=== PATIENT | female | born 1995 | race Caucasian/White ===

== ENCOUNTER 2020-08-09 15:14 | Outpatient (REF) | payer OTHER, SELFPAY ==
[2020-08-09 15:52] LABS: MANUAL DIFF FLAG NO
[2020-08-09 15:55] LABS: Basophils Percent Auto 0.3 % (0-2); Eosinophils Percent Auto 0.3 % (0-4); Hematocrit 36.6 % (37-47); Hemoglobin 10.8 g/dl (12.0-16.0); Imm Gran Abs Auto 0.01 X10*3/uL (0.00-0.03); Imm Gran Pct Auto 0.2 % (0.0-0.4); Lymphocytes Absolute Auto 1.8 X10*3/uL (1.2-4.9); Lymphocytes Percent Auto 30.4 % (20-40); Mean Corpuscular HGB Conc 29.5 g/dl (31.0-35.0); Mean Corpuscular Hemoglobin 23.5 pg (27.0-33.0); Mean Corpuscular Volume 79.6 fL (80-98); Mean Platelet Volume 10.5 fL (9.4-12.3); Monocytes Absolute Auto 0.4 X10*3/uL (0.1-1.2); Neutrophils Absolute Auto 3.7 X10*3/uL (2.0-8.3); Neutrophils Percent Auto 62.8 % (45-73); Platelet Count 327 X10*3/uL (160-400); Red Cell Distribution Width 15.5 % (11.0-16.0); White Blood Count 5.8 X10*3/uL (4.8-10.8)
[2020-08-09 16:26] LABS: Alanine Aminotransferase 17 U/L (0-31); Alkaline Phosphatase 51 U/L (39-117); Anion Gap 13 (12-20); Aspartate Amino Transferase 31 U/L (5-31); Bilirubin Total 0.4 mg/dL (0.0-1.0); Blood Urea Nitrogen 7 mg/dL (9-16); Calcium 9.8 mg/dL (8.4-10.2); Carbon Dioxide 28 mmol/L (22-29); Chloride 101 mmol/L (96-108); Estimated Glomerular Filt Rate > 60; Glucose Random 91 mg/dL (60-115); Sodium 138 mmol/L (135-145); Total Protein 8.2 g/dL (6.5-8.0)
[2020-08-09 16:42] LABS: TSH reflex Free T4 1.34 mIU/mL (0.32-4.0)
[2020-08-10 10:43] LABS: Complement C3 108 mg/dL (83-193)
== END 2020-08-09 15:15 | disposition home or self-care (01) ==
LOC: HO.LAB 15:14
PROVIDERS: PCP Internal Medicine; Referring Provider Allergy & Immunology; Visit Provider Nurse Practitioner Family
DX: T78.3XXA Angioneurotic edema, initial encounter (principal); N93.9 Abnormal uterine and vaginal bleeding, unspecified
CPT/HCPCS: 36415; 80053; 82785; 83520; 84443; 85025; 86003; 86160

== ENCOUNTER → 2020-10-04 08:16 | Outpatient (BNVA) | payer OTHER, SELFPAY | PROVIDERS: PCP Internal Medicine; Visit Provider Physician Assistant | DX: Z13.89 Encounter for screening for other disorder (principal) | CPT/HCPCS: Q3014 ==

== ENCOUNTER → 2021-01-23 13:44 | Outpatient (BNVA) | payer OTHER, SELFPAY | PROVIDERS: PCP Internal Medicine; Visit Provider Internal Medicine Gastroenterology | DX: Q79.60 Ehlers-Danlos syndrome, unspecified (principal); G62.9 Polyneuropathy, unspecified; K90.0 Celiac disease; K22.4 Dyskinesia of esophagus; R13.10 Dysphagia, unspecified | CPT/HCPCS: 99212 ==

== ENCOUNTER 2021-03-26 08:56 | Outpatient (RCR) | payer MEDICARE, MEDICAID, SELFPAY ==
--- NOTE | 2021-03-30 14:35 | MHC.SP.ADU ---
Referring provider: Dr. Arminda Hector MD Reason for Referral: Vocal cord dysfunction Type of Treatment: 68681 Behavioral and Qualitative Analysis of Voice and Resonance Date of Plan of Treatment: 03/30/21 Onset of Symptoms/Illness: 09/08/14 Date Treatment Started: 03/30/21 Medical Diagnosis: Pain in right hip Pain in left hip Low back pain Depression with Anxiety Primary Dysmenorrhea Mild intermittent asthma Bilateral shoulder pain Gastroparesis Grecia-Danlos Syndrome Neck pain Headache Dysphagia Knee dislocation allergic rhinitis TMJ arthralgia Raynauds Disease Neurogenic pain Elbow Pain Palpitations Other chronic pain Vocal cord anomaly Small fiber neuropathy Systemic involvement of connective tissue Autonomic dysfunction POTS syndrome Abnormal uterine bleeding Primary Speech Language Diagnosis: R49.9 Unspecified voice Secondary Speech Language Diagnosis: History Pamela Jimenez is a 25 year old female who was referred for a voice evaluation by her PCP, Dr. Hector for vocal cord dysfunction. Pamela was diagnosed with a connective tissue disorder, Grecia-Danlos Syndrome at . Ms. Jimenez reported that she has been seen by an ENT in the past, though does not recall how long ago this was. She reported the ENT stated her vocal cords are thinning and there is a gap between them . Kacey received speech therapy in the past, approximately 6 years ago at [facility]. In speech therapy she practiced vocal exercises including breath support and pitch glides. Pamela reported that her voice sounds gravely at times. She has difficulty raising her voice or speaking in a whisper. She reported that her voice gets worse as the day goes on. Pamela also mentioned concerns with word finding and memory. Medical History: Asthma Voice Changes Other: Please see above Medication List: Please see pt chart Recent Hospitalizations: No Respiratory Needs: Room Air Patient Orientation: Alert & Oriented x 4 Social History: Employment Status: Highest level of education obtained: Current Living Situation: Shared apartment Assistive Devices in use: Cane Glasses/Contacts Comment: Pamela ambulated with the help of a cane. Past Speech Language Therapy: Pamela's last reported speech therapy session was approximately 6 years ago at [facility]. Other Therapies Seen in Current Calendar Year: Physical Therapy Other: Swallowing History: Dysphagia Specific: Within Functional Limits Comments: Pt reported occasional pain when swallowing and globus sensation. Pre-eval Risk for Aspiration: Pre-evaluation Dietary Consistencies: Regular Pre-eval Liquid Intake: Thin Pre-eval Medication Intake: Whole with Liquid Reported Speech, Language, Cognition difficulties: Memory Voice Comments: Quality of Life: Patient Stated Goal of Speech-Language Therapy: Assessment Speech Production: Clinical Impression: Observations: Informal Voice Assessment: Voice Loudness: Mildly Soft/Quiet Voice Nasal Resonance: Normal Voice Oral Resonance: Normal Voice Phonatory-based Quality: Breathy Tremor Voice Pitch: Limited Variation Voice Other Observations: Clinical Impression: Clinicial Observations: Tests of Speech & Lang Adults: [place] Naming Test: Short Form Clinical Impression: Impaired Observations: Pamela was administered the BNT short form, as she presented with concerns related to word finding skills. The BNT is an assessment used to evaluate a person's confrontation naming skills. Pamela was shown 15 black and white line drawings. She correctly named 10/15 items. Further testing is warranted in this area. Tests of Cognition: Regis Cognitive Assessment (MoCA) Clinical Impression: Impaired Observations: Pamela was administered the Regis Cognitive Assessment due to concerns related to memory and executive functions. The MoCA is a tool used to identify mild cognitive impairment. The following cognitive domains are assessed: visuospatial skills, executive functioning, memory, attention, language, orientation, conceptual thinking, calculations, and concentration. The total possible score is 30 points. A score of 26/30 is considered normal. Pamela achieved a score of 17/30 indicating a cognitive impairment. Visuospatial: 2/5 -Pamela was unable to draw a clock with the number and time set correctly. Namin/3 Memory: 1/5 -Pamela had difficulty with recalling 5 words when given a time delay. She was observed to stare blankly and guess. Language: 0/2 -Pamela was unable to repeat sentences back to this INFORMATION SERVICES MANAGER. Abstraction: 2/2 Orientation: 5/6 -Pamela did not recall the date. Attention: 3/5 -Pamela struggled with serial subtraction and repeating numbers back to this clinician. Based on Pamela's performance on the MoCA, additional cognitive testing is warranted to further assess her cognitive functioning. Impressions and Recommendations Summary: Impact on Daily Function/Activity Limitations: Daily Activities: Moderate Interpersonal Interactions: Moderate Education: Moderate Employment: None Community: Moderate Prognosis for Improvement: Fair Comment: Recommendation for Speech Therapy: It is recommended that Pamela participate in speech therapy 1x/week for 8 weeks to improve vocal quality. Frequency/Duration: Date Range for Service Requested: Time to Reassess: Optometrist Owner Goals: Patient will improve vocal quality and voice related quality of life. Short Term Goals: Goal # : Patient will develop a vocal hygiene program (i.e. diet changes, identifying and minimizing vocally abusive behaviors (i.e. speaking on residual air) vocal rest, hydration, etc.) with the clinician and discuss maintenance of vocal hygiene program across 5 sessions with 100% participation. Goal Status: New Goal Goal# : Patient will complete diaphragmatic breathing exercises to improve breath support for phonation with 90% accuracy and min cues. Goal Status: New Goal Goal # : Patient will complete vocal function exercises (pitch glides, sustained /a/) with 90% accuracy and min cues. Goal Status: New Goal Goal # : Patient will complete a more Cognitive Linguistic Quick Test (CLQT) with 100% completion to further assess domains of cognitive functioning. Recommended Referrals to be Discussed with Primary Care Provider: ENT Consult Patient Education: Completed: Yes Patient/Caregiver Education: Described Results of Evaluation Patient expressed understanding of evaluation Patient agrees with goals and treatment plan Comments/Barriers to Learning: Strategic Sourcing Consultant Clinican/Clinical Fellow: No Supervisory Statement: N/A Speech Language Pathologist: Silva Hansen M.A. [facility]-INFORMATION SERVICES MANAGER
== END 2022-01-07 16:03 | disposition home or self-care (01) ==
LOC: HO.SH 08:56
PROVIDERS: Visit Provider Internal Medicine
DX: R49.9 Unspecified voice and resonance disorder (principal)
CPT/HCPCS: 92524

== ENCOUNTER 2021-08-30 14:00 | Outpatient (REF) | payer MEDICARE, MEDICAID, SELFPAY ==
[2021-08-30 14:58] LABS: Influenza A PCR NEGATIVE (Negative); Influenza B PCR NEGATIVE (Negative); Resp Syncy Virus RNA Qual PCR NEGATIVE (Negative); SARS COV2 PCR INHOUSE NEGATIVE (Negative)
== END 2021-08-30 14:01 | disposition home or self-care (01) ==
LOC: HO.LNP 14:00
PROVIDERS: Visit Provider Physician Assistant Medical
DX: Z20.822 Contact with and (suspected) exposure to COVID-19 (principal); J06.9 Acute upper respiratory infection, unspecified
CPT/HCPCS: 0241U

== ENCOUNTER 2025-03-31 15:05 | Inpatient (IN) | payer MEDICARE, MEDICAID, SELFPAY ==
--- NOTE | ~2025-03-31 | MR_ITS ---
EXAMINATION: MR BRAIN WITH CONTRAST CLINICAL INFORMATION: Positional migraine COMPARISON: April 01, 2025 TECHNIQUE: Axial and coronal T1 postcontrast sequences. Total amount of contrast given IV: 5 cc gadolinium based (Gadavist) without reported immediate complications. FINDINGS: No abnormal enhancement within the intra-axial or the extra-axial compartment of the cranium. MR/MR head/brain w con IMPRESSION: No enhancing lesion/mass. Spontaneous Intracranial hypotension cannot be excluded. Electronically signed by: Sean Neves MD 04/06/2025 03:13 PM EDT
--- NOTE | ~2025-03-31 | CT_ITS ---
CLINICAL HISTORY: Intractable Headache CT BRAIN WITHOUT CONTRAST COMPARISON: None provided. FINDINGS: There is no evidence of an acute infarct or intraparenchymal hemorrhage. Apparent mild decreased attenuation is noted within the white matter of the bilateral occipital lobes, for example this is seen on axial images 11-14 of series 3. While nonspecific, the imaging appearance raises the question of posterior reversible encephalopathy syndrome (PRES) in this patient with a history of headaches. No evidence of an intraparenchymal hemorrhage. No hydrocephalus. No extra-axial blood. No acute fracture. IMPRESSION: 1. No evidence of an acute infarct or intraparenchymal hemorrhage. 2. Apparent mild decreased attenuation within the white matter of the bilateral occipital lobes. Imaging appearance is nonspecific but raises the question of posterior reversible encephalopathy syndrome (PRES). A follow-up MRI brain without and with contrast is advised for a more accurate assessment. This document has been electronically signed by: Michael Mao M.D. on 04/01/2025 05:00:16
--- NOTE | ~2025-03-31 | MR_ITS ---
CLINICAL HISTORY: complex mifgrain MR Brain without gadolinium Comparison: CT/SR - CT HEAD/BRAIN WO IV CON - 04/01/25 03:50 EDT Findings: No restricted diffusion. No intra-axial mass or hemorrhage. No midline shift. No hydrocephalus. Vascular flow voids are intact. The orbits are normal. The sinuses and mastoid air cells are clear. No focal bone lesion. IMPRESSION: Normal brain MRI. This document has been electronically signed by: Deidra Nj MD on 04/01/2025 19:08:47
[2025-03-31 15:14] VITALS: BP 129/81; PULSE 99; RESP 18; TEMP 36.9; O2SAT 100; BMI 19.9
--- NOTE | 2025-03-31 15:23 | ED_ITS ---
HPI - Headache General Chief Complaint: Headache Stated Complaint: headache for week dizzy Time Seen by Provider: 03/31/25 19:25 Source: patient Mode of arrival: ambulatory Limitations: no limitations History of Present Illness ED Provider: Nahum LEES HPI Narrative: The patient is a 29-year-old female with history of OCD, PTSD, bipolar disorder, migraines, neuralgia, celiac disease, Grecia-Danlos syndrome, dysautonomia, mast cell activation, chronic pain, by dysmorphic disorder, and GERD presenting to the ED for evaluation of a severe headache over the past 5 days. The patient reports she takes morphine daily for chronic pain, has been taking this without relief. The patient reports allergies to codeine, Flexeril, ibuprofen, Reglan, and scopolamine. The patient reports she follows with a autonomic neurologist in [place] as she has been experiencing migraines that occasionally present with right-sided facial droop. Patient reports she has been experiencing 5 days of generalized headache originating in the bilateral occipital region and radiating into the frontal region, with associated nausea and photosensitivity, patient reports this is similar to her previous migraines however patient reports she is experiencing severe irritation/pain on her skin at the base of her neck, which is considerably different from her regular migraines, patient denies any facial droop and states not feel similar to her episodes for which she is being followed by the autonomic neurologist in [place]. The patient denies associated objective fever, shortness of breath, chest pain different from her baseline chronic pain, recent sick contacts, or recent trauma. The patient reports she was seen by her physical therapist 2 days ago who did massage and dry needling of her neck without any improvement. The patient reports symptoms increased with standing, improved with lying down. The patient denies any recent spinal tap or other instrumentation. Patient reports she had called her autonomic neurologist in [place] who previously advised her if she was not experiencing symptoms consistent with the drooping face, she could be seen in any local ER for her symptoms, patient reports she did not receive a call back and presented to the ED for evaluation. Related Data Home Medications ?Medication ?Instructions ?Recorded ?Confirmed epinephrine 0.3 mg/0.3 mL 0.3 mg IM Q10M PRN Allergic 10/04/20 04/01/25 injection, auto-injector Reaction norgestimate 0.25 mg-ethinyl 1 tab PO DAILY 10/04/20 0 04/01/25 estradiol 0.035 mg tablet (Sprintec (28)) cromolyn 100 mg/5 mL oral 200 mg PO QIDWMHS 01/23/21 0 04/01/25 concentrate multivitamin 1 tab PO DAILY 01/23/21 07/01/30 Lactobacillus acidophilus 10 10,000 mmu cells PO DAILY 04/01/25 04/01/25 billion cell capsule (Probiotic) albuterol sulfate 90 mcg/actuation 2 puff inhalation Q 4H PRN dyspnea 04/01/25 04/01/25 aerosol inhaler buprenorphine HCl 900 mcg buccal 900 mcg buccal Q12H c hronic pain 04/01/25 04/01/25 film (Belbuca) methenamine hippurate 1 gram tablet 1 g PO DAILY 04/0104/01/25 metoprolol succinate 25 mg 25 mg PO DAILY 04/01/25 tablet,extended release 24 hr omeprazole 40 mg capsule,delayed 40 mg PO DAILY@0630 0 04/01/25 04/01/25 release pyridostigmine bromide 60 mg tablet 30 mg PO BEDTIME 0 04/01/25 04/01/25 pyridostigmine bromide 60 mg tablet 60 mg PO DAILY 04/01/25 Allergies Allergy/AdvReac Type Severity Reaction Status Date / Time codeine (CODEINE) Allergy Unknown UNKNOWN Verified 03/31/25 15:18 cyclobenzaprine (From Allergy Unknown UNKNOWN Verified 03/31/25 15:18 FLEXERIL) ibuprofen (From MOTRIN) Allergy Unknown UNKNOWN Verified 03/31/25 15:18 metoclopramide (From REGLAN) Allergy Unknown AGITATION Verified 03/31/25 15:18 scopolamine (SCOPOLAMINE) Allergy Unknown ANAPHYLAXIS Verified 03/31/25 15:18 GLUTENS Allergy Unknown GI DISTRESS Uncoded 10/04/20 09:05 Review of Systems 2 Review of Systems: Yes all other systems are reviewed and are negative [facility] Past Medical History Medical History Ureter injury Wrist disorder Body dysmorphic disorder Dysmenorrhea OCD (obsessive compulsive disorder) PTSD (post-traumatic stress disorder) Bipolar 1 disorder Migraine Hip deformity Tachycardia Chronic pain Vocal cord anomaly Lordosis Mast cell activation Small fiber neuropathy Dysautonomia Grecia-Danlos syndrome Celiac disease Surgical History H/O colonoscopy History of esophagogastroduodenoscopy (EGD) History of kidney surgery H/O wrist surgery Stryker teeth extracted History of appendectomy Family History Family History Mother No problems noted. Father No problems noted. Social History Social History Household Members: Friend(s) Household Members Other:: BF and 3 room mates Alcohol intake: never Smoked in Last 30 Days: No Use of substances other than those prescribed or required for medical reasons: No Advance Directives: No Advance Directives Information Provided: No Do you have a plan to hurt others: No Plan Patient : No service: No Current occupational status: disabled Physical Exam 2 Vital Signs: Vital Signs: Last Vital Signs Temp 98.5 F 04/01/25 16:07 Pulse 78 04/01/25 16:07 Resp 16 04/01/25 16:07 BP 110/67 04/01/25 16:07 Pulse Ox 97 04/01/25 16:07 O2 Del Method Room Air 04/01/25 16:07 BMI result Body Mass Index 19.9 CONSTITUTIONAL: The patient appears in obvious discomfort, is wearing sunglasses in the dark secondary to photosensitivity, but is otherwise well nourished and in no acute distress. Vital signs as documented. HEAD: Atraumatic, normocephalic. EYES: Exam deferred due to severe photosensitivity. ENT: Nares patent, no discharge. Airway patent, no audible stridor, visible mucosa is pink and moist without noted lesions. NECK: Trachea is midline, no obvious masses or gross abnormalities. There is no bony tenderness, however patient reports tenderness to both light and deep palpation of the base of her neck bilaterally. Full, nonpainful range of motion. CHEST: Symmetric movement, normal appearance. LUNGS: LS present and CTAB, no w/r/r. Non-labored work of breathing. CARDIAC: Regular Rhythm, S1/S2 appreciated, no murmurs, rubs or gallops. ABDOMEN: Abdomen soft and non-tender x4 quadrants, no palpable masses or organomegaly. : Deferred. EXTREMITIES: Normal tone, moves all extremities spontaneously without reported pain. No obvious acute injury or deformity noted. NEURO: Alert and oriented x3, CN II-XII appear grossly intact. Cerebellar Functioning grossly intact. No obvious sensory or motor deficits. Speech clear and appropriate. PSYCH: normal affect, appropriate eye contact, fluid speech, with appropriate response to questioning. No reported suicidality or homicidality. SKIN: Warm, dry, color appropriate, normal turgor. No rashes noted. Course Course Course Narrative: This is an RME: Additional HPI, ROS, PE not included below will be deferred to primary provider. RME assessment and note performed by: Socorro Wiley PA-C This is a 23-[id number]-female who presents to the ER with complaints of headache x 5 days. Reporting increased nausea and blurry vision. Hx of occipital nauralgia and migraines. Plan: Labs, EKG, further ER eval needed Medications Administered Generic Name Dose Route Start Last Admin Trade Name Freq PRN Reason Stop Dose Admin Hydromorphone HCl 1 mg 04/01/25 06:25 04/01/25 17:29 Hydromorphone Hcl 1 Mg/Ml Syringe IVPUSH 1 mg Q4H PRN Administration Pain, Severe (Pain Scale 7-10) Protocol Omeprazole 20 mg 04/01/25 09:00 04/01/25 09:41 Omeprazole 20 Mg Capsule.Dr PO 20 mg DAILY@0630 LUIS Administration Sodium Chloride 3 ml 04/01/25 08:00 04/01/25 17:34 0.9 % Sodium Chloride Flush 3 Ml Syringe IVFLUSH Not Given QSHIFT [facility] Discontinued Medications Generic Name Dose Route Start Last Admin Trade Name Freq PRN Reason Stop Dose Admin Diazepam 5 mg 03/31/25 20:03 03/31/25 20:35 Diazepam 10 Mg/2 Ml Cartridge IVPUSH 03/31/25 20:04 5 mg STAT STA Administration Diphenhydramine HCl 25 mg 04/01/25 05:16 04/01/25 05:26 Diphenhydramine Hcl 50 Mg/Ml Vial IVPUSH 04/01/25 05:17 25 mg ONCE ONE Administration Haloperidol Lactate 5 mg 04/01/25 03:42 04/01/25 04:57 Haloperidol Lactate 5 Mg/Ml Vial IVPUSH 04/01/25 03:43 5 mg ONCE ONE Administration Hydromorphone HCl 0.5 mg 03/31/25 20:03 03/31/25 20:35 Hydromorphone Hcl 0.5 Mg/0.5 Ml Syringe IVPUSH 03/31/25 20:04 0.5 mg ONCE ONE Administration Protocol Hydromorphone HCl 1 mg 04/01/25 00:51 04/01/25 01:13 Hydromorphone Hcl 1 Mg/Ml Syringe IVPUSH 04/01/25 00:52 1 mg ONCE ONE Administration Protocol Sodium Chloride 1,000 mls @ 999 mls/hr 03/31/25 20:15 03/31/25 21:48 Ns IV 03/31/25 21:15 Infused .Q1H1M LUIS Infusion Acetaminophen 1,000 mg in 100 mls @ 400 mls/hr 03/31/25 20:03 03/31/25 21:25 Ofirmev IV 03/31/25 20:17 Infused ONCE ONE Infusion Ondansetron HCl 4 mg 03/31/25 20:03 03/31/25 20:28 Ondansetron Hcl 4 Mg/2 Ml Vial IVPUSH 03/31/25 20:04 4 mg ONCE ONE Administration Ondansetron HCl 4 mg 04/01/25 01:08 04/01/25 01:13 Ondansetron Hcl 4 Mg/2 Ml Vial IVPUSH 04/01/25 01:09 4 mg ONCE ONE Administration Sumatriptan Succinate 50 mg 04/01/25 00:09 04/01/25 00:36 Sumatriptan Succinate 50 Mg Tablet PO 04/01/25 00:10 50 mg ONCE ONE Administration Medical Decision Making Medical Decision Making MDM Narrative: 8:28 PM 03/31/2025 (Saniya LEES): The patient is a 29-year-old female presenting to the ED for evaluation of 5 days of headache which is inconsistent with her regular migraines or with her complicated migraines for which she is followed by an autonomic neurologist in [place]. The patient expresses associated photosensitivity, audio toxicity, and generalized malaise/fatigue. The patient's exam is benign. The patient has multiple allergies including Reglan and Toradol. The patient's laboratory evaluation is extremely reassuring, no leukocytosis, anemia, electrolyte abnormality, NICOLE, significant liver abnormality, evidence of UTI, or . The patient's viral swab is negative. EKG is nonischemic. Vital signs stable, no hypotension, tachycardia, hypoxia, or fever. Consideration of CT imaging was discussed with the patient, given the duration of patient's symptoms, reassuring workup and exam, and history of recurrent headaches, we will attempt to treatment of headache prior to considering CT imaging, if no improvement following interventions the patient will be sent for CT of the head head. The patient will be treated with a combination of IV fluid hydration, Dilaudid as her symptoms have not improved with her p.o. morphine, Valium for muscle relaxation, IV Tylenol, and Zofran for nausea. We will also add on ESR and CRP. 12:21 AM 04/01/2025 (Saniya LEES): The patient's ESR and CRP are normal, no evidence of inflammatory process. The patient reports symptoms minimally improved immediately following initial treatment. At this time however the patient reports pain has returned and is ?10/10?. The patient will be treated with sumatriptan and we will reassess for improvement. We will also obtain CT head as previously discussed. 12:54 AM 04/01/2025 (Saniya LEES): The patient is refusing sumatriptan stating p.o. meds we will not work, patient will be treated with an additional mg of Dilaudid. If patient continues to have no relief we will consider haldol. 3:48 AM 04/01/2025 (Saniya LEES): The patient did eventually take sumatriptan but stated it did not relieve her pain and agitated her stomach. The patient reports improvement in the frontal aspect of her headache with Dilaudid, however reports persistent pressure and pain in the posterior/occipital area. The patient will be treated with Haldol. Patient initially was refusing CT however after additional discussion patient will be sent for CT to rule out intracranial pathology. 4:22 AM 04/01/2025 (Saniya LEES): Patient's care signed out to Dr. Saw Dial. 05:24: The patient's headache is now intractable. CT head without acute pathology however cerebellar appearance raises concern for possible pres. No indication for emergent neurology consultation I will add a drug tox panel on patient has received a total of 9 different medications still complaining of severe pain refused occipital nerve block by me says she has had a bad reaction to this in the past. There was no suggestion of BUSINESS ADMINISTRATION PROFESSOR infection acute traumatic injury this is likely acute on chronic migrainous in nature Quentin Wang MD Admission/Observation Consideration of admission/observation: Escalation of care including admission/observation considered Lab Data [facility] Lab Attestation statement: I reviewed the patient's lab results. 03/31/25 15:57 03/31/25 15:57 Labs: Lab Results 03/31/25 03/31/25 Range/Units 15:57 20:33 WBC 6.2 (4.8-10.8) X10*3/uL RBC 4.71 (4.20-5.50) X10*6/uL Hgb 13.9 (12.0-16.0) g/dl Hct 42.9 (37.0-47.0) % MCV 91.1 (80.0-98.0) fL MCH 29.5 (27.0-33.0) pg MCHC 32.4 (31.0-35.0) g/dl RDW 13.2 (11.0-16.0) % Plt Count 218 (160-400) X10*3/uL MPV 10.5 (9.4-12.3) fL Immature Gran % (Auto) 0.3 (0.0-0.4) % Neut % (Auto) 71.9 (45-73) % Lymph % (Auto) 22.1 (20-40) % Becker % (Auto) 5.2 (2-11) % Eos % (Auto) 0.2 (0-4) % Baso % (Auto) 0.3 (0-2) % Lymph # (Auto) 1.4 (1.2-4.9) X10*3/uL Becker # (Auto) 0.3 (0.1-1.2) X10*3/uL Eos # (Auto) 0.0 (0.0-0.4) X10*3/uL Baso # (Auto) 0.0 (0.0-0.2) X10*3/uL Abs Immat Gran (auto) 0.02 (0.00-0.03) X10*3/uL Absolute Neuts (auto) 4.4 (2.0-8.3) x10*3/uL Absolute Nucleated RBC 0.000 (0.0-0.012) X10*3/uL Nucleated RBC % (auto) 0.0 (0.0-0.2) /100WBC ESR 3 (0-20) MM/HR Sodium 139 (135-145) mmol/L Potassium 4.1 (3.3-5.1) mmol/L Chloride 104 (96-108) mmol/L Carbon Dioxide 26 (22-29) mmol/L Anion Gap 13 (12-20) BUN 16 (9-16) mg/dL Creatinine 0.74 (0.5-1.4) mg/dL Estim Creat Clear Calc 88.8 Estimated GFR > 60 Random Glucose 91 (60-115) mg/dL Calcium 9.7 (8.4-10.2) mg/dL Magnesium 2.1 (1.6-2.6) mg/dL Total Bilirubin 0.4 (0.0-1.0) mg/dL Direct Bilirubin 0.1 (0.0-0.5) mg/dL AST 32 H (5-31) U/L ALT 24 (0-31) U/L Alkaline Phosphatase 53 (39-117) U/L C-Reactive Protein < 0.04 (< or = 0.50) mg/dL Total Protein 7.6 (6.5-8.0) g/dL Albumin 4.6 (3.5-5.0) g/dL Beta HCG, Quant < 2 mIU/mL Urine Color Yellow Urine Appearance Clear Urine pH 6.0 (5.0-9.0) Ur Specific [place] 1.010 (1.005-1.025) Urine Protein Negative (Neg-Trace) mg/dL Urine Glucose (UA) Negative (Negative) mg/dL Urine Ketones Negative (Negative) mg/dL Urine Blood Negative (Negative) Urine Nitrite Negative (Negative) Ur Leukocyte Esterase Trace H (Negative) Urine RBC 0-2 (0-2) /HPF Urine WBC 0-5 (0-5) /HPF Ur Squamous Epith Cells 0-2 (0-2) /HPF Urine Bacteria None Seen (None Seen) Hyaline Casts 0-2 (0-2) /LPF Urine Opiates Screen Not Detected (Not Detect) Ur Buprenorphine Scrn Not Detected (Not Detect) ng/mL Ur Oxycodone Screen Not Detected (Not Detect) ng/mL Urine Methadone Screen Not Detected (Not Detect) ng/mL Urine Fentanyl Screen Not Detected (Not Detect) Ur Barbiturates Screen Not Detected (Not Detect) Ur Phencyclidine Scrn Not Detected (Not Detect) Ur Amphetamines Screen Not Detected (Not Detect) U Benzodiazepines Scrn Not Detected (Not Detect) Urine Cocaine Screen Not Detected (Not Detect) U Marijuana (THC) Screen POSITIVE H (Not Detect) Influenza Type A (PCR) NEGATIVE (Negative) Influenza Type B (PCR) NEGATIVE (Negative) RSV RNA Qual (PCR) NEGATIVE (Negative) SARS-CoV-2 RNA (RT-PCR) NEGATIVE (Negative) Independent Interpretation I performed an independent interpretation of an: EKG (EKG shows sinus rhythm with a rate of 70, no evidence of acute ischemia, no ST elevation, no ectopy. QTC 414. ) Discharge Plan Discharge Patient Disposition: Admitted As Inpatient Interventions: Admission Worksheet (ED) Last Done: 04/01/25 06:36
--- NOTE | 2025-03-31 15:30 | ECG_ITS ---
Test Reason : dizziness Blood Pressure : */* mmHG Vent. Rate : 70 BPM Atrial Rate : 70 BPM P-R Int : 126 ms QRS Dur : 82 ms QT Int : 384 ms P-R-T Axes : 80 22 37 degrees QTcB Int : 414 ms Normal sinus rhythm with sinus arrhythmia Nonspecific ST abnormality Abnormal ECG No previous ECGs available Referred By: Socorro Wiley Electronically Signed By: Harley Santiago
[2025-03-31 16:05] LABS: MANUAL DIFF FLAG NO
[2025-03-31 16:11] LABS: Hematocrit 42.9 % (37.0-47.0); Hemoglobin 13.9 g/dl (12.0-16.0); Imm Gran Abs Auto 0.02 X10*3/uL (0.00-0.03); Imm Gran Pct Auto 0.3 % (0.0-0.4); Lymphocytes Absolute Auto 1.4 X10*3/uL (1.2-4.9); Mean Corpuscular HGB Conc 32.4 g/dl (31.0-35.0); Mean Corpuscular Hemoglobin 29.5 pg (27.0-33.0); Mean Corpuscular Volume 91.1 fL (80.0-98.0); NRBC Abs Auto 0.000 X10*3/uL (0.0-0.012); NRBC Pct Auto 0.0 /100WBC (0.0-0.2); Platelet Count 218 X10*3/uL (160-400); Red Blood Count 4.71 X10*6/uL (4.20-5.50); White Blood Count 6.2 X10*3/uL (4.8-10.8)
[2025-03-31 16:32] LABS: Alanine Aminotransferase 24 U/L (0-31); Albumin Level 4.6 g/dL (3.5-5.0); Alkaline Phosphatase 53 U/L (39-117); Anion Gap 13 (12-20); Aspartate Amino Transferase 32 U/L (5-31); Blood Urea Nitrogen 16 mg/dL (9-16); Calcium 9.7 mg/dL (8.4-10.2); Carbon Dioxide 26 mmol/L (22-29); Chloride 104 mmol/L (96-108); Creatinine Clr Calc Pharmacy 88.8; Estimated Glomerular Filt Rate > 60; Magnesium 2.1 mg/dL (1.6-2.6); Potassium 4.1 mmol/L (3.3-5.1); Sodium 139 mmol/L (135-145); Total Protein 7.6 g/dL (6.5-8.0)
[2025-03-31 16:47] LABS: Resp Syncy Virus RNA Qual PCR NEGATIVE (Negative); SARS COV2 PCR INHOUSE NEGATIVE (Negative)
[2025-03-31 18:46] VITALS: BP 109/69; PULSE 68; RESP 16; TEMP 36; O2SAT 100
[2025-03-31] MEDS: diazePAM 10 MG/2 ML CARTRIDGE 5 MG IVPUSH (20:35)
[2025-03-31 20:44] LABS: Appearance Urine Clear; Glucose Urine UA Negative (Negative); PH 6.0 (5.0-9.0); Specific Gravity - Urine 1.010 (1.005-1.025); UMIC TRIGGER UACC YES
[2025-03-31 20:48] VITALS: BP 124/75; PULSE 65; RESP 16; TEMP 36.6; O2SAT 100
[2025-03-31 22:00] VITALS: BP 111/75; PULSE 75; RESP 16; TEMP 36.6; O2SAT 98
[2025-04-01 02:23] VITALS: BP 118/67; PULSE 63; RESP 16; TEMP 36.8; O2SAT 99
[2025-04-01 05:11] VITALS: BP 123/76; PULSE 80; RESP 22; TEMP 36.8; O2SAT 98
[2025-04-01 05:41] LABS: Cannabinoid Screen Urine POSITIVE (Not Detect)
--- NOTE | 2025-04-01 06:00 | PM.IMHP ---
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 Patient also reporting changes with vision including double exposure and floating dots. Pt denies any loss of vision. Pt did see her PCP yesterday and she was instructed to be seen in ED if symptoms worsened. Patient did try to reach her autonomic neurologist in [place] but they did not get better so she decided to come to the ED for evaluation. Patient has been taking her usual medications and applying ice and then heat but has had no relief. Patient did undergo CT of the head which showed no evidence of acute infarct or intraparenchymal hemorrhage. Incidentally radiologist states mild decreased attenuation within the white matter of the bilateral occipital lobes which is considered nonspecific but raises the question of posterior reversible encephalopathy syndrome (PRES). Patient being admitted for further evaluation by Neurology. Unclear if MRI will be indicated. Pt did receive dilaudid in the ED and notes that the 0.5 mg was somewhat helpful but 1 mg dose was much more effective. Pt does take morphine at home and denies issues with narcotics, including dependence. Pt is on control and this has been recently adjusted to help with known endometriosis. Pt does not smoke and test today is negative. Pt states her mental health issues are stable and she is not having SI, HI but is currently seeking a new provider as her current therapist is out on medical leave. Review of Systems Review of Systems: Pt denies chest pain, is having mild nausea, no vomiting. Pt denies wt loss and although appetite is fair, denies any unusual wt loss. Pt reports occipatal HUERTA, 12/16/ Pt is wearing sunglasses which helps. Yes all other systems are reviewed and are negative FORMERLY [facility], [facility]–1983 Medical History Ureter injury Wrist disorder Body dysmorphic disorder Dysmenorrhea OCD (obsessive compulsive disorder) PTSD (post-traumatic stress disorder) Bipolar 1 disorder Migraine Hip deformity Tachycardia Chronic pain Vocal cord anomaly Lordosis Mast cell activation Small fiber neuropathy Dysautonomia Grecia-Danlos syndrome Celiac disease Cognitive capacity: A/O X3 Functional capacity: independent ambulation Patient : No Family History Mother No problems noted. Father No problems noted. Surgical History H/O colonoscopy History of esophagogastroduodenoscopy (EGD) History of kidney surgery H/O wrist surgery [place] teeth extracted History of appendectomy Social History Household Members: Friend(s) Household Members Other:: BF and 3 room mates Alcohol intake: never Smoked in Last 30 Days: No Use of substances other than those prescribed or required for medical reasons: No Advance Directives: No Advance Directives Information Provided: No Do you have a plan to hurt others: No Plan Patient : No Current occupational status: disabled Ebola Risk: Travel/Contact With Anyone From Affected Area/s: No Has Patient Experienced Ebola Symptoms: No Meds Allergies Allergy/AdvReac Type Severity Reaction Status Date / Time codeine (CODEINE) Allergy Unknown UNKNOWN Verified 03/31/25 15:18 cyclobenzaprine (From Allergy Unknown UNKNOWN Verified 03/31/25 15:18 FLEXERIL) ibuprofen (From MOTRIN) Allergy Unknown UNKNOWN Verified 03/31/25 15:18 metoclopramide (From REGLAN) Allergy Unknown AGITATION Verified 03/31/25 15:18 scopolamine (SCOPOLAMINE) Allergy Unknown ANAPHYLAXIS Verified 03/31/25 15:18 GLUTENS Allergy Unknown GI DISTRESS Uncoded 10/04/20 09:05 Active Medications: Current Medications Acetaminophen (Acetaminophen 325 Mg Tablet) 650 mg PO Q6H PRN PRN Reason: Pain, Mild 1-3,fever,headache Albuterol/Ipratropium (Albuterol/Iprat 2.5/0.5mg 3 Ml Ampul.Neb) 3 ml INHALE Q4H PRN PRN Reason: Shortness of Breath/Wheezing Calcium Carbonate (Calcium Carbonate 750 Mg Tab.Chew) 750 mg PO Q4H PRN PRN Reason: Heartburn Magnesium Hydroxide (Milk Of Magnesia 30 Ml Oral.Susp) 30 ml PO DAILY PRN PRN Reason: Constipation Melatonin (Melatonin 3 Mg Tablet) 6 mg PO BEDTIME PRN PRN Reason: Insomnia Ondansetron HCl (Ondansetron Hcl 4 Mg/2 Ml Vial) 4 mg IVPUSH Q8H PRN PRN Reason: Nausea and Vomiting Sodium Chloride (0.9 % Sodium Chloride Flush 3 Ml Syringe) 3 [facility] Medications ?Medication ?Instructions ?Recorded ?Confirmed ?Last Taken ?Type albuterol sulfate 2.5 mg/3 mL 2.5 mg inhalation Q4-6H PRN 10/04/20 10/04/20 Unknown History (0.083 %) solution for nebulization cholecalciferol (vitamin D3) 125 125 mcg PO DAILY 10/04/20 10/04/20 Unknown History mcg (5,000 unit) capsule epinephrine 0.3 mg/0.3 mL 0.3 mg IM Q10M PRN 10/04/20 10/04/20 Unknown History injection, auto-injector famotidine 40 mg tablet 40 mg PO DAILY 10/04/20 10/04/20 Unknown History lamotrigine 300 mg tablet,extended 300 mg PO DAILY 10/04/20 10/04/20 Unknown History release 24 hr metoprolol succinate 25 mg 12.5 mg PO DAILY 10/04/20 10/04/20 Unknown History tablet,extended release 24 hr morphine 15 mg tablet,extended 15 mg PO Q8H 10/04/20 10/04/20 Unknown History release norgestimate 0.25 mg-ethinyl 1 tab PO DAILY 10/04/20 10/04/20 Unknown History estradiol 0.035 mg tablet (Sprintec (28)) omeprazole 40 mg capsule,delayed 40 mg PO BID 10/04/20 10/04/20 Unknown History release pyridostigmine bromide 60 mg tablet 60 mg PO BID 10/04/20 10/04/20 Unknown History Bacillus coagulans 800 million cell PO 01/23/21 Unknown History cell tablet (Digestive Advantage Probiotics-Prebiotic) cetirizine 10 mg tablet 0 mg PO 01/23/21 Unknown History cromolyn 100 mg/5 mL oral mg PO 01/23/21 Unknown History concentrate diazepam 2 mg tablet 1 mg PO BID PRN muscle spasm 01/23/21 Unknown History digestive enzymes 1 cap PO DAILY 01/23/21 Unknown History fluconazole 150 mg tablet 150 mg PO Q OTHER DAY 01/23/21 Unknown History lamotrigine 100 mg tablet 0 mg PO 01/23/21 Unknown History lamotrigine 25 mg tablet 0 mg PO 01/23/21 Unknown History morphine 15 mg immediate release 0 mg PO 01/23/21 Unknown History tablet multivitamin 1 tab PO DAILY 01/23/21 Unknown History sucralfate 1 gram tablet 1 g PO DAILY 01/23/21 Unknown History Physical Exam Vital Signs and Narrative: Vital Signs: Last Vital Signs Temp 98.3 F 04/01/25 05:11 Pulse 80 04/01/25 05:11 Resp 22 H 04/01/25 05:11 BP 123/76 04/01/25 05:11 Pulse Ox 98 04/01/25 05:11 O2 Del Method Room Air 04/01/25 05:11 BMI result Body Mass Index 19.9 Alert and orientated X3, able to give good history. Cooperative with care/ Neuro: CN II-X11 intact, no deficits, visual acuity intact EYES: PERRLA, EOM intact, sclera non icteric ENT: hearing intact, no issues with swallowing, uvula midline, lips moist, nares patent no epistaxis Cardiac: S1 S2 RRR, no murmur, no JVD, no edema in Lower ext Pulmonary: lungs clear to auscultation B Abdominal: BS active in all 4 quadrants, no guarding, tenderness, rebounding MSK: strength 5/5 upper and lower extremities : no CVA tenderness no bladder distension Extremities: no edema in lower extremities, PT and DP pulses palpable +2 Psych: mood anxious, judgement and insight good Skin: intact Results Labs 03/31/25 15:57 03/31/25 15:57 Labs: Laboratory Results - last 24 hr 03/31/25 03/31/25 15:57 20:33 MCV 91.1 MCH 29.5 MCHC 32.4 RDW 13.2 Plt Count 218 MPV 10.5 Immature Gran % (Auto) 0.3 Neut % (Auto) 71.9 Lymph % (Auto) 22.1 [place] % (Auto) 5.2 Eos % (Auto) 0.2 Baso % (Auto) 0.3 Lymph # (Auto) 1.4 [place] # (Auto) 0.3 Eos # (Auto) 0.0 Baso # (Auto) 0.0 Abs Immat Gran (auto) 0.02 Absolute Neuts (auto) 4.4 Absolute Nucleated RBC 0.000 Nucleated RBC % (auto) 0.0 ESR 3 Anion Gap 13 Estim Creat Clear Calc 88.8 Estimated GFR > 60 Random Glucose 91 Calcium 9.7 Magnesium 2.1 Total Bilirubin 0.4 Direct Bilirubin 0.1 AST 32 H ALT 24 Alkaline Phosphatase 53 C-Reactive Protein < 0.04 Total Protein 7.6 Albumin 4.6 Beta HCG, Quant < 2 Urine Color Yellow Urine Appearance Clear Urine pH 6.0 Ur Specific [place] 1.010 Urine Protein Negative Urine Glucose (UA) Negative Urine Ketones Negative Urine Blood Negative Urine Nitrite Negative Ur Leukocyte Esterase Trace H Urine RBC 0-2 Urine WBC 0-5 Ur Squamous Epith Cells 0-2 Urine Bacteria None Seen Hyaline Casts 0-2 Urine Opiates Screen Not Detected Ur Buprenorphine Scrn Not Detected Ur Oxycodone Screen Not Detected Urine Methadone Screen Not Detected Urine Fentanyl Screen Not Detected Ur Barbiturates Screen Not Detected Ur Phencyclidine Scrn Not Detected Ur Amphetamines Screen Not Detected U Benzodiazepines Scrn Not Detected Urine Cocaine Screen Not Detected U Marijuana (THC) Screen POSITIVE H Influenza Type A (PCR) NEGATIVE Influenza Type B (PCR) NEGATIVE RSV RNA Qual (PCR) NEGATIVE SARS-CoV-2 RNA (RT-PCR) NEGATIVE Assessment and Plan (1) Migraine: Qualifiers: Intractability: intractable Migraine type: unspecified Status migrainosus presence: with status migrainosus Qualified Code(s): G43.911 - Migraine, unspecified, intractable, with status migrainosus Status: Acute Plan Pt is a 29-year-old female with past medical history of migraine, occipital neuralgia, muscle spasm, GERD, dysmenorrhea, Celiac disease, endometriosis, DYsautonomia, Grecia-Danlos syndrome, bipolar 1 disorder, OCD, PTSD, body dysmorphic disorder presents to the emergency department after 5 days of progressive headaches resulting in pain and pressure with increased nausea and blurry vision. Pt was seen by her PCP yesterday and was told to seek further evaluation if symptoms persist. Patient is being admitted to be evaluated by Neurology. CT of the head completed, no acute findings but questions of PRES. Migraine, intractable/Question of PRES via CT of the head Neurology consulted Dilaudid 1 mg Q4 prn for severe pain Tylenol prn Antiemteics prn Med rec pending for usual medications Holding off on MRI testing until patient is seen by Neurology Labs are WNL, no indication for repeat labs currently GERD Omeperazole DVT prophylaxis: Low risk, not ordered Med rec pending Full Code status Quality Stroke Does the patient have a stroke diagnosis?: No Reason for No Anti-thrombotic by Day Two: Drug treatment not indicated VTE Prior VTE?: No VTE Risk Level:: Medical - low VTE Device Contraindication: Treatment Not Indicated VTE Drug Contraindication: Treatment Not Indicated
[2025-04-01 08:02] VITALS: BP 126/75; PULSE 60; RESP 12; TEMP 36.7; O2SAT 97
--- NOTE | 2025-04-01 08:21 | PC.NURSE ---
Pt has been resting quietly with sunglasses on and lights out since this RN arrival. No VOmiting.
--- NOTE | 2025-04-01 08:46 | PHA.MEDREC ---
Pharmacy Consult ? Medication Reconciliation Pharmacy has completed the medication reconciliation. Spoke to patient to confirm med list. Patient states she is not taking Cetirizine 10 mg, Vitamin D3 125 mcg, diazepam 2 mg, Famotidine 40 mg, Lamotrigine 300 mg, Midodrine 2.5 mg, and Sucralfate 1 gm. Patient confirmed Cromolyn 100mg/5ml 2 vials QIDWM, Pyridostigmine bromide 60 mg QAM and 30 mg ( 1/2 of 60 mg) QPM for a total =90 mg daily. Patient last had her medications last night.
--- NOTE | 2025-04-01 10:11 | PC.NURSE ---
Pt has been sleeping mostly. Room remains dark. no dry/heaving vomiting. has not been taking PO since yestyerday. has requested IV fluids. This RN to approach hospitalist. Awaits bed assignment
--- NOTE | 2025-04-01 10:48 | MHC.CM.PN ---
Met with patient in regards to discharge planning. Patient lives with her sig other and a roommate, uses a cane for mobility and had no services prior to coming to the hospital. No services anticipated to be needed because patient is not homebound. PCP verified. Copy of HCP verified to be on file. Obs notice explained and signed. Patient's sig other will transport her home when medically stable. Continue to monitor for d/c needs.
--- NOTE | 2025-04-01 12:07 | P.CNNE_ITS ---
History of Present Illness Data of Consult Service Date: 04/01/25 Primary Care Provider: Arminda Hector MD [facility] Reason for consult: Headache 29 years old woman with complex underlying medical and neuropsychiatric history. History was obtained from her previous records and this institution and from her. She said that she has been suffering from headaches since she was a child and had seen multiple neurologist in this area and ultimately went to see neurologist in [facility] where she was still going. In addition to headaches, she also was treated for generalized body pain or neuropathic pain and was taking as needed morphine and other medicines for that. She said that she had not taken any specific migraine medicine for awhile as previously there had not worked and was not on any migraine preventive med at this time. She was having a headache every day but for last few days her headaches were much more severe. She described it as a 10/10 headache all around the head but mostly in the back of the head bilaterally making or nauseous. It was also affecting her speech and creating fogginess of mind. She denied any cold or flu-like illness. No history of recent trauma. 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 Father No problems noted. Surgical History Surgical History H/O colonoscopy History of esophagogastroduodenoscopy (EGD) History of kidney surgery H/O wrist surgery [place] teeth extracted History of appendectomy Social History Social History Household Members: Friend(s) Household Members Other:: BF and 3 room mates Alcohol intake: never Smoked in Last 30 Days: No Use of substances other than those prescribed or required for medical reasons: No Advance Directives: No Advance Directives Information Provided: No Do you have a plan to hurt others: No Plan Patient : No service: No Current occupational status: disabled Travel History Ebola Risk: Travel/Contact With Anyone From Affected Area/s: No Has Patient Experienced Ebola Symptoms: No Meds Allergies Allergy/AdvReac Type Severity Reaction Status Date / Time codeine (CODEINE) Allergy Unknown UNKNOWN Verified 03/31/25 15:18 cyclobenzaprine (From Allergy Unknown UNKNOWN Verified 03/31/25 15:18 FLEXERIL) ibuprofen (From MOTRIN) Allergy Unknown UNKNOWN Verified 03/31/25 15:18 metoclopramide (From REGLAN) Allergy Unknown AGITATION Verified 03/31/25 15:18 scopolamine (SCOPOLAMINE) Allergy Unknown ANAPHYLAXIS Verified 03/31/25 15:18 GLUTENS Allergy Unknown GI DISTRESS Uncoded 10/04/20 09:05 Active Medications: Current Medications Acetaminophen (Acetaminophen 325 Mg Tablet) 650 mg PO Q6H PRN PRN Reason: Pain, Mild 1-3,fever,headache Albuterol/Ipratropium (Albuterol/Iprat 2.5/0.5mg 3 Ml Ampul.Neb) 3 ml INHALE Q4H PRN PRN Reason: Shortness of Breath/Wheezing Calcium Carbonate (Calcium Carbonate 750 Mg Tab.Chew) 750 mg PO Q4H PRN PRN Reason: Heartburn Hydromorphone HCl (Hydromorphone Hcl 1 Mg/Ml Syringe) 1 mg IVPUSH Q4H PRN; Protocol PRN Reason: Pain, Severe (Pain Scale 7-10) Last Admin: 04/01/25 10:03 Dose: 1 mg Magnesium Hydroxide (Milk Of Magnesia 30 Ml Oral.Susp) 30 ml PO DAILY PRN PRN Reason: Constipation Melatonin (Melatonin 3 Mg Tablet) 6 mg PO BEDTIME PRN PRN Reason: Insomnia Omeprazole (Omeprazole 20 Mg Capsule.Dr) 20 mg PO DAILY@0630 [facility] Last Admin: 04/01/25 09:41 Dose: 20 mg Ondansetron HCl (Ondansetron Hcl 4 Mg/2 Ml Vial) 4 mg IVPUSH Q8H PRN PRN Reason: Nausea and Vomiting Sodium Chloride (0.9 % Sodium Chloride Flush 3 Ml Syringe) 3 [facility] Last Admin: 04/01/25 09:40 Dose: Not Given Home Medications ?Medication ?Instructions ?Recorded ?Confirmed ?Last Taken ?Type epinephrine 0.3 mg/0.3 mL 0.3 mg IM Q10M PRN Allergic 10/04/20 04/01/25 Unknown History injection, auto-injector Reaction norgestimate 0.25 mg-ethinyl 1 tab PO DAILY 10/04/20 0 04/01/25 03/31/25 History estradiol 0.035 mg tablet (Sprintec (28)) cromolyn 100 mg/5 mL oral 200 mg PO QIDWMHS 01/23/21 0 04/01/25 03/31/25 History concentrate multivitamin 1 tab PO DAILY 01/23/21 07/01/3003/31/25 History Lactobacillus acidophilus 10 10,000 mmu cells PO DAILY 04/01/25 04/01/25 03/31/25 History billion cell capsule (Probiotic) albuterol sulfate 90 mcg/actuation 2 puff inhalation Q 4H PRN dyspnea 04/01/25 04/01/25 Unknown History aerosol inhaler buprenorphine HCl 900 mcg buccal 900 mcg buccal Q12H c hronic pain 04/01/25 04/01/25 03/31/25 History film ([place]) methenamine hippurate 1 gram tablet 1 g PO DAILY 04/0104/01/25 03/31/25 History metoprolol succinate 25 mg 25 mg PO DAILY 04/01/2503/31/25 History tablet,extended release 24 hr omeprazole 40 mg capsule,delayed 40 mg PO DAILY@0630 0 04/01/25 04/01/25 03/31/25 History release pyridostigmine bromide 60 mg tablet 30 mg PO BEDTIME 0 04/01/25 04/01/25 03/31/25 History pyridostigmine bromide 60 mg tablet 60 mg PO DAILY 04/01/25 03/31/25 History Physical Exam 2 Vital Signs: Vital Signs: Last Vital Signs Temp 98.1 F 04/01/25 08:02 Pulse 60 04/01/25 08:02 Resp 12 04/01/25 08:02 BP 126/75 04/01/25 08:02 Pulse Ox 97 04/01/25 08:02 O2 Del Method Room Air 04/01/25 08:02 BMI result Body Mass Index 19.9 Neuro: Other: She was alert and awake with normal spontaneity of speech fluency comprehension and depressed affect. Face was symmetrical. Visual gutierrez are full. Pupils are about 3 mm round reactive. Extraocular muscles were intact. There was no obvious focal arm or leg weakness. Deep tendon reflexes were 2+ with flexor plantars. Speech was normal. Results Labs 03/31/25 15:57 03/31/25 15:57 Labs: Short CBC 03/31/25 Range/Units 15:57 WBC 6.2 (4.8-10.8) X10*3/uL Hgb 13.9 (12.0-16.0) g/dl Hct 42.9 (37.0-47.0) % Plt Count 218 (160-400) X10*3/uL BMP 03/31/25 15:57 Sodium 139 Potassium 4.1 Chloride 104 Carbon Dioxide 26 BUN 16 Creatinine 0.74 Calcium 9.7 Liver Function 03/31/25 Range/Units 15:57 Total Bilirubin 0.4 (0.0-1.0) mg/dL Direct Bilirubin 0.1 (0.0-0.5) mg/dL AST 32 H (5-31) U/L ALT 24 (0-31) U/L Alkaline Phosphatase 53 (39-117) U/L Albumin 4.6 (3.5-5.0) g/dL Urine 03/31/25 Range/Units 20:33 Urine Color Yellow Urine Appearance Clear Urine pH 6.0 (5.0-9.0) Ur Specific [place] 1.010 (1.005-1.025) Urine Protein Negative (Neg-Trace) mg/dL Urine Glucose (UA) Negative (Negative) mg/dL Noncontrast head CT revealed mild areas of hypodensity in bilateral occipital areas. Previously, she had a cervical spine MRI that revealed straightening of cervical curvature rather reversal of cervical curvature but otherwise no significant cord or spine pathology. MRI of thoracic spine also did not reveal any significant pathology. There was no brain MRI in this institution. Assessment and Plan (1) Status migrainosus: Status: Acute 29 years old woman with complex underlying medical and neuropsychiatric history was here with clinical picture suggestive of status migrainosus. She reported long history of headaches though she has not been any headache controlling or preventive medicines at this time. Her neurologist was in [place]. At the same time, she was seeing pain clinic at [facility] for body pain syndrome treated with pyridostigmine, buprenorphine, and p.r.n. morphine. I recommend 500 mg of valproic acid to break cycle of migraine. I am avoiding vasoconstrictive medicines because of the finding on CAT scan. It may be just an artifact but I would recommend obtaining noncontrast MRI of brain to rule out vasoconstrictive syndrome. In the longer run, she could continue Depakote as a migraine preventive medicine if it would work, or consider a CGRP inhibitor type of medicines, which she can discuss with her primary neurologist in pain Clinic in [facility]. If that would not work, Botox treatment might be another useful option especially because she has significant straightening of cervical curvature resulting in significant paracervical muscle spasm, which might be the reason for reversal of this curvature. Procedures Date of Service Date of Service: 04/01/25
--- NOTE | 2025-04-01 13:07 | PM.EVENT ---
Event Note Date of Service: 04/01/25 Event Note: Chart reviewed patient examined agree with H&P and plan as outlined by night float Time Spent With Patient Time: Total time managing care of this patient today ____ minutes.
[2025-04-01 16:07] VITALS: BP 110/67; PULSE 78; RESP 16; TEMP 36.9; O2SAT 97
[2025-04-01 18:29] VITALS: BMI 19.4
[2025-04-01 19:57] VITALS: BP 123/81; PULSE 69; RESP 18; TEMP 36.6; O2SAT 100
[2025-04-01] MEDS: 0.9 % Sodium Chloride Flush 3 ML SYRINGE IVFLUSH (20:26)
[2025-04-02] VITALS (7 sets, daily range): BP systolic 107–123; BP diastolic 63–77; PULSE 58–77; RESP 16–18; TEMP 36.3–36.9; O2SAT 96–100
[2025-04-02 04:55] LABS: Cannabinoid Screen Urine POSITIVE (Not Detect)
--- NOTE | 2025-04-02 05:39 | PC.NURSE ---
Seen pt on bed with dark glasses on and significant other at the bedside, still c/o 9/10 HUERTA, with baseline dizziness, no vision involvement at that time, an hour early for the prn Dilaudid,pt refused to take her Valproic acid as it make he nauseous Dr. Hardwick was notified, agreed to give med early, pt had relief after.
[2025-04-02] MEDS: 0.9 % Sodium Chloride Flush 3 ML SYRINGE IVFLUSH ×2 (08:40→17:22)
--- NOTE | 2025-04-02 12:20 | P.PNIM_ITS ---
Subjective Subjective Date of Service: 04/02/25 Interval History: c/o R>L headache, nausea, photophobia/phonophobia Review of Systems Review of Systems: Yes all other systems are reviewed and are negative Physical Exam 2 Vital Signs: Vital Signs: Last Vital Signs Temp 98.3 F 04/02/25 07:41 Pulse 77 04/02/25 07:41 Resp 18 04/02/25 07:41 BP 112/69 04/02/25 07:41 Pulse Ox 96 04/02/25 07:41 O2 Del Method Room Air 04/02/25 07:41 BMI result Body Mass Index 19.4 Gen: in no acute distress HEENT: sclera anicteric, moist mucus membranes Neck: supple Lungs: clear to auscultation bilaterally Heart: regular rate and rhythm, no murmurs Abd: soft, non-tender, non-distended Ext: no edema Skin: warm/well-perfused Neuro: alert and oriented x3, no focal findings Psych: appropriate affect Objective Data Active Medications Acetaminophen (Acetaminophen 325 Mg Tablet) 650 mg PO Q6H PRN PRN Reason: Pain, Mild 1-3,fever,headache Albuterol/Ipratropium (Albuterol/Iprat 2.5/0.5mg 3 Ml Ampul.Neb) 3 ml INHALE Q4H PRN PRN Reason: Shortness of Breath/Wheezing Calcium Carbonate (Calcium Carbonate 750 Mg Tab.Chew) 750 mg PO Q4H PRN PRN Reason: Heartburn Hydromorphone HCl (Hydromorphone Hcl 1 Mg/Ml Syringe) 1 mg IVPUSH Q4H PRN; Protocol PRN Reason: Pain, Severe (Pain Scale 7-10) Last Admin: 04/02/25 08:33 Dose: 1 mg Documented By: HALEY Magnesium Hydroxide (Milk Of Magnesia 30 Ml Oral.Susp) 30 ml PO DAILY PRN PRN Reason: Constipation Melatonin (Melatonin 3 Mg Tablet) 6 mg PO BEDTIME PRN PRN Reason: Insomnia Omeprazole (Omeprazole 20 Mg Capsule.Dr) 20 mg PO DAILY@0630 [facility] Last Admin: 04/02/25 05:37 Dose: 20 mg Documented By: GABI Ondansetron HCl (Ondansetron Hcl 4 Mg/2 Ml Vial) 4 mg IVPUSH Q8H PRN PRN Reason: Nausea and Vomiting Last Admin: 04/02/25 08:33 Dose: 4 mg Documented By: HALEY Sodium Chloride (0.9 % Sodium Chloride Flush 3 Ml Syringe) 3 ml IVFLUSH QSHIFT [facility] Last Admin: 04/02/25 08:40 Dose: 3 ml Documented By: HALEY Valproic Acid (Valproic Acid 250 Mg Capsule) 500 mg PO BID [facility] Last Admin: 04/02/25 09:49 Dose: 500 mg Documented By: HALEY Labs 03/31/25 15:57 03/31/25 15:57 Labs: Laboratory Results - last 24 hr 03/31/25 20:33 Urine Opiates Screen Not Detected Ur Buprenorphine Scrn Not Detected Ur Oxycodone Screen Not Detected Urine Methadone Screen Not Detected Urine Fentanyl Screen Not Detected Ur Barbiturates Screen Not Detected Ur Phencyclidine Scrn Not Detected Ur Amphetamines Screen Not Detected U Benzodiazepines Scrn Not Detected Urine Cocaine Screen Not Detected U Marijuana (THC) Screen POSITIVE H Assessment and Plan (1) Status migrainosus: Status: Acute Plan d2 for 29yo F diagnosed with migraine disorder, occipital neuralgia, dysmenorrhea, celiac disease, endometriosis, dysautonomia, Grecia-Danlos, bipolar 1, OCD, PTSD, body dysmorphic disorder, mast cell activation disorder presenting with 5d of headache status migranosus - Neurology consulted, recommended Depakote 500 mg bid which pt refused but I explained the purpose of the medication [she had though it was Imitrex, which she reports caused immediate nausea/vomiting] - MRI brain normal - continue IV hydromorphone + ondansetron PRN - consider outpt CGRP inhibitor or Botox, followed by [facility] headache clinic - IV hydration GERD - PPI dysautonomia - metoprolol succinate - pyridostigmine VTE ppx - SCDs dispo - eventual home In my clinical judgment, the patient requires continued inpatient hospitalization for the following reasons: pain control Total time managing care of this patient today: 35 minutes. Quality Stroke Does the patient have a stroke diagnosis?: No Reason for No Anti-thrombotic by Day Two: Drug treatment not indicated VTE Prior VTE?: No VTE Risk Level:: Medical - low VTE Device Contraindication: Treatment Not Indicated VTE Drug Contraindication: Treatment Not Indicated
[2025-04-02] MEDS: Lactated Ringers 1,000 ML 100 ML IVCONT ×2 (12:26→20:52)
--- NOTE | 2025-04-02 14:00 | PC.NURSE ---
Pts father brought NF medications to bedside, Pharmacist Marnie made aware, d/t [place] being controlled sub films counted at bedside with director of reservations 54 films counted. Triplet paper filled out and information technology project manager came to bedside to collect medication. control and cromolyn brought in as well, to be stored in pt specific bin once verified by pharmacy.
[2025-04-02] MEDS: NORGESTIMATE ETHINYL ESTRADIOL 1 EACH PO (17:18)
[2025-04-02] MEDS: BUPRENORPHINE HCL 900 MCG 900 EACH BUCCAL (22:01)
[2025-04-03] VITALS (7 sets, daily range): BP systolic 109–134; BP diastolic 66–76; PULSE 57–82; RESP 17–18; TEMP 36.1–37.3; O2SAT 96–100
--- NOTE | 2025-04-03 04:27 | PC.NURSE ---
Pt was awaken after midnight by the IV pump beeps,pt was upset and frustrated as its worsening her HUERTA, another RN went to fix the machine as the account underwriter was in another pt's room giving meds , pt emotionally telling the RN her frustration and also got her emotions escalated accusing same RN as being rude to her, I went to the room after, seen pt crying over her phone with her significant other, pt claimed shes not safe here, I reassured the pt to validate her claim, and offered my help, pt said she doesnt want the other RN back to her room again.
[2025-04-03] MEDS: Lactated Ringers 1,000 ML 100 ML IVCONT (05:39)
[2025-04-03] MEDS: Metoprolol Succinate ER 25 MG TAB.ER.24H PO (08:29)
[2025-04-03] MEDS: 0.9 % Sodium Chloride Flush 3 ML SYRINGE IVFLUSH ×2 (08:33→17:19)
--- NOTE | 2025-04-03 09:35 | P.PNIM_ITS ---
Subjective Subjective Date of Service: 04/03/25 Interval History: c/o severe headache, nausea, photophobia, and phonophobia Review of Systems Review of Systems: Yes all other systems are reviewed and are negative Physical Exam 2 Vital Signs: Vital Signs: Last Vital Signs Temp 97.8 F 04/03/25 07:53 Pulse 60 04/03/25 09:33 Resp 18 04/03/25 07:53 BP 127/69 04/03/25 09:33 Pulse Ox 96 04/03/25 07:53 O2 Del Method Room Air 04/03/25 07:53 BMI result Body Mass Index 19.4 Gen: in no acute distress HEENT: sclera anicteric, moist mucus membranes Neck: supple Lungs: clear to auscultation bilaterally Heart: regular rate and rhythm, no murmurs Abd: soft, non-tender, non-distended Ext: no edema Skin: warm/well-perfused Neuro: alert and oriented x3, no focal findings Psych: appropriate affect Objective Data Active Medications Acetaminophen (Acetaminophen 325 Mg Tablet) 650 mg PO Q6H PRN PRN Reason: Pain, Mild 1-3,fever,headache Albuterol Sulfate (Albuterol Sulfate 90 Mcg 8 Gm Inhaler) 2 puff INHALE Q4H PRN PRN Reason: Dyspnea Albuterol/Ipratropium (Albuterol/Iprat 2.5/0.5mg 3 Ml Ampul.Neb) 3 ml INHALE Q4H PRN PRN Reason: Shortness of Breath/Wheezing Calcium Carbonate (Calcium Carbonate 750 Mg Tab.Chew) 750 mg PO Q4H PRN PRN Reason: Heartburn Hydromorphone HCl (Hydromorphone Hcl 1 Mg/Ml Syringe) 1 mg IVPUSH Q4H PRN; Protocol PRN Reason: Pain, Severe (Pain Scale 7-10) Last Admin: 04/03/25 05:34 Dose: 1 mg Documented By: GABI Magnesium Hydroxide (Milk Of Magnesia 30 Ml Oral.Susp) 30 ml PO DAILY PRN PRN Reason: Constipation Melatonin (Melatonin 3 Mg Tablet) 6 mg PO BEDTIME PRN PRN Reason: Insomnia Methenamine Hippurate (Methenamine Hippurate 1 Gm Tablet) 1 gm PO DAILY [facility] Last Admin: 04/03/25 08:28 Dose: 1 gm Documented By: HALEY Metoprolol Succinate (Metoprolol Succinate Er 25 Mg Tab.Er.24h) 25 mg PO DAILY [facility]; Protocol Last Admin: 04/03/25 08:29 Dose: 25 mg Documented By: HALEY Multivitamins/Vitamin C (Multivitamin Tablet) 1 tab PO DAILY [facility] Last Admin: 04/03/25 08:29 Dose: 1 tab Documented By: HALEY Pt Own (Cromolyn 100 Mg/5 Ml Concentrate ) 200 mg PO QIDWMHS [facility] Last Admin: 04/03/25 08:31 Dose: 200 mg Documented By: HALEY Pt Own ( Buprenorphine Hcl [ [place]] 900 Mcg Film) 900 mcg BUCCAL BID@1000,2200 [facility] Last Admin: 04/02/25 22:01 Dose: 900 mcg Documented By: GABI Pt Own (Norgestimate -Ethinyl Estradiol [ Sprintec (28)] 0.25- 35 Mg-Mcg Ta 1 tab PO DAILY@1800 [facility] Last Admin: 04/02/25 17:18 Dose: 1 tab Documented By: HALEY Omeprazole (Omeprazole 20 Mg Capsule.Dr) 20 mg PO DAILY@0630 [facility] Last Admin: 04/03/25 05:35 Dose: 20 mg Documented By: GABI Ondansetron HCl (Ondansetron Hcl 4 Mg/2 Ml Vial) 4 mg IVPUSH Q8H PRN PRN Reason: Nausea and Vomiting Last Admin: 04/03/25 05:34 Dose: 4 mg Documented By: GABI Pyridostigmine [place] (Pyridostigmine [place] 60 Mg Tablet) 60 mg PO DAILY [facility] Last Admin: 04/03/25 08:29 Dose: 60 mg Documented By: HALEY Pyridostigmine [place] (Pyridostigmine [place] 60 Mg Tablet) 30 mg PO BEDTIME [facility] Last Admin: 04/02/25 20:49 Dose: 30 mg Documented By: GABI Sodium Chloride (0.9 % Sodium Chloride Flush 3 Ml Syringe) 3 ml IVFLUSH QSHIFT [facility] Last Admin: 04/03/25 08:33 Dose: 3 ml Documented By: HALEY Valproic Acid (Valproic Acid 250 Mg Capsule) 500 mg PO BID [facility] Last Admin: 04/03/25 08:29 Dose: 500 mg Documented By: HALEY Labs 03/31/25 15:57 03/31/25 15:57 Assessment and Plan (1) Status migrainosus: Status: Acute Plan d3 for 29yo F diagnosed with migraine disorder, occipital neuralgia, dysmenorrhea, celiac disease, endometriosis, dysautonomia, Grecia-Danlos, bipolar 1, OCD, PTSD, body dysmorphic disorder, mast cell activation disorder presenting with 5d of headache status migranosus - Neurology consulted, recommended Depakote 500 mg bid which pt refused but I explained the purpose of the medication [she had though it was Imitrex, which she reports caused immediate nausea/vomiting] and she has taken the last 2 doses - MRI brain normal - continue IV hydromorphone + ondansetron PRN - consider outpt CGRP inhibitor or Botox, followed by [facility] headache clinic - IV hydration GERD - PPI dysautonomia - metoprolol succinate - pyridostigmine VTE ppx - SCDs dispo - eventual home In my clinical judgment, the patient requires continued inpatient hospitalization for the following reasons: pain control Total time managing care of this patient today: 35 minutes. Quality Stroke Does the patient have a stroke diagnosis?: No Reason for No Anti-thrombotic by Day Two: Drug treatment not indicated VTE Prior VTE?: No VTE Risk Level:: Medical - low VTE Device Contraindication: Treatment Not Indicated VTE Drug Contraindication: Treatment Not Indicated
[2025-04-03] MEDS: BUPRENORPHINE HCL 900 MCG 900 EACH BUCCAL (10:14)
[2025-04-03] MEDS: NORGESTIMATE ETHINYL ESTRADIOL 1 EACH PO (17:17)
--- NOTE | 2025-04-03 22:15 | PC.NURSE ---
Pt awoken from sleep w06/17 headache pain & vomiting. Pt's PRN Zofran & and Dilaudid was due around 22:30, MD Storey was notified of the situation. Per MD Storey okay to give pt's PRN medications earlier d/t to pt's pain and vomiting, see MAR. Pt was unable to take her LUIS PO medications d/t the vomiting. Will continue to monitor the pt's symptoms.
[2025-04-04 03:46] VITALS: BP 106/71; PULSE 88; RESP 17; TEMP 36; O2SAT 98
[2025-04-04 07:47] VITALS: BP 120/79; PULSE 88; RESP 18; TEMP 36.3; O2SAT 96
[2025-04-04] MEDS: Metoprolol Succinate ER 25 MG TAB.ER.24H PO (08:36)
[2025-04-04] MEDS: 0.9 % Sodium Chloride Flush 3 ML SYRINGE IVFLUSH (08:37)
[2025-04-04] MEDS: BUPRENORPHINE HCL 900 MCG 900 EACH BUCCAL ×2 (09:22→23:03)
--- NOTE | 2025-04-04 10:54 | HO.PM.IMPN ---
Subjective Subjective Date of Service: 04/04/25 Interval History: c/o severe headache, nausea, PO intolerance Review of Systems Review of Systems: Yes all other systems are reviewed and are negative Physical Exam Vital Signs: Vital Signs: Last Vital Signs Temp 97.4 F 04/04/25 07:47 Pulse 88 04/04/25 07:47 Resp 18 04/04/25 07:47 BP 120/79 04/04/25 07:47 Pulse Ox 96 04/04/25 07:47 O2 Del Method Room Air 04/04/25 07:47 BMI result Body Mass Index 19.4 Gen: in no acute distress HEENT: sclera anicteric, moist mucus membranes Neck: supple Lungs: clear to auscultation bilaterally Heart: regular rate and rhythm, no murmurs Abd: soft, non-tender, non-distended Ext: no edema Skin: warm/well-perfused Neuro: alert and oriented x3, no focal findings Psych: appropriate affect Objective Data Active Medications Acetaminophen (Acetaminophen 325 Mg Tablet) 650 mg PO Q6H PRN PRN Reason: Pain, Mild 1-3,fever,headache Albuterol Sulfate (Albuterol Sulfate 90 Mcg 8 Gm Inhaler) 2 puff INHALE Q4H PRN PRN Reason: Dyspnea Albuterol/Ipratropium (Albuterol/Iprat 2.5/0.5mg 3 Ml Ampul.Neb) 3 ml INHALE Q4H PRN PRN Reason: Shortness of Breath/Wheezing Calcium Carbonate (Calcium Carbonate 750 Mg Tab.Chew) 750 mg PO Q4H PRN PRN Reason: Heartburn Hydromorphone HCl (Hydromorphone Hcl 1 Mg/Ml Syringe) 1 mg IVPUSH Q4H PRN; Protocol PRN Reason: Pain, Severe (Pain Scale 7-10) Last Admin: 04/04/25 06:24 Dose: 1 mg Documented By: DECLAN Dextrose/Sodium Chloride (D51/2ns) 1,000 mls @ 80 mls/hr IVCONT .[id number] [facility] Magnesium Hydroxide (Milk Of Magnesia 30 Ml Oral.Susp) 30 ml PO DAILY PRN PRN Reason: Constipation Melatonin (Melatonin 3 Mg Tablet) 6 mg PO BEDTIME PRN PRN Reason: Insomnia Methenamine Hippurate (Methenamine Hippurate 1 Gm Tablet) 1 gm PO DAILY [facility] Last Admin: 04/04/25 08:36 Dose: 1 gm Documented By: CORBIN Metoprolol Succinate (Metoprolol Succinate Er 25 Mg Tab.Er.24h) 25 mg PO DAILY [facility]; Protocol Last Admin: 04/04/25 08:36 Dose: 25 mg Documented By: CORBIN Multivitamins/Vitamin C (Multivitamin Tablet) 1 tab PO DAILY [facility] Last Admin: 04/04/25 08:37 Dose: 1 tab Documented By: CORBIN Pt Own (Cromolyn 100 Mg/5 Ml Concentrate ) 200 mg PO QIDWMHS [facility] Last Admin: 04/04/25 08:20 Dose: 200 mg Documented By: CORBIN Pt Own ( Buprenorphine Hcl [ [place]] 900 Mcg Film) 900 mcg BUCCAL BID@1000,2200 [facility] Last Admin: 04/04/25 09:22 Dose: 900 mcg Documented By: CORBIN Pt Own (Norgestimate -Ethinyl Estradiol [ Sprintec (28)] 0.25- 35 Mg-Mcg Ta 1 tab PO DAILY@1800 [facility] Last Admin: 04/03/25 17:17 Dose: 1 tab Documented By: HALEY Omeprazole (Omeprazole 20 Mg Capsule.Dr) 20 mg PO DAILY@0630 [facility] Last Admin: 04/04/25 06:16 Dose: Not Given Documented By: DECLAN Non-Admin Reason: Nausea Ondansetron HCl (Ondansetron Hcl 4 Mg/2 Ml Vial) 4 mg IVPUSH Q8H PRN PRN Reason: Nausea and Vomiting Last Admin: 04/04/25 06:22 Dose: 4 mg Documented By: DECLAN Pyridostigmine [place] (Pyridostigmine [place] 60 Mg Tablet) 60 mg PO DAILY [facility] Last Admin: 04/04/25 08:36 Dose: 60 mg Documented By: CORBIN Pyridostigmine [place] (Pyridostigmine [place] 60 Mg Tablet) 30 mg PO BEDTIME [facility] Last Admin: 04/03/25 22:15 Dose: Not Given Documented By: DECLAN Non-Admin Reason: pt vomiting Sodium Chloride (0.9 % Sodium Chloride Flush 3 Ml Syringe) 3 ml IVFLUSH QSHIFT [facility] Last Admin: 04/04/25 08:37 Dose: 3 ml Documented By: CORBIN Valproic Acid (Valproic Acid 250 Mg Capsule) 500 mg PO BID [facility] Last Admin: 04/04/25 08:23 Dose: Not Given Documented By: CORBIN Non-Admin Reason: Patient Refused Labs 03/31/25 15:57 03/31/25 15:57 Assessment and Plan (1) Status migrainosus: Status: Acute Plan d4 for 29yo F diagnosed with migraine disorder, occipital neuralgia, dysmenorrhea, celiac disease, endometriosis, dysautonomia, Grecia-Danlos, bipolar 1, OCD, PTSD, body dysmorphic disorder, mast cell activation disorder presenting with 5d of headache status migranosus - Neurology consulted, recommended Depakote 500 mg bid but pt does not seem to be responding; discuss other options - MRI brain normal - continue IV hydromorphone + ondansetron PRN - consider outpt CGRP inhibitor or Botox, followed by [facility] headache clinic - resume IV hydration GERD - PPI dysautonomia - continue metoprolol succinate - continue pyridostigmine VTE ppx - SCDs dispo - eventual home In my clinical judgment, the patient requires continued inpatient hospitalization for the following reasons: pain control Total time managing care of this patient today: 35 minutes. Quality Stroke Does the patient have a stroke diagnosis?: No Reason for No Anti-thrombotic by Day Two: Drug treatment not indicated VTE Prior VTE?: No VTE Risk Level:: Medical - low VTE Device Contraindication: Treatment Not Indicated VTE Drug Contraindication: Treatment Not Indicated
--- NOTE | 2025-04-04 11:01 | MHC.CM.PN ---
Patient not medically cleared for dc. Orders changed to inpatient. IMM delivered.
[2025-04-04 12:00] VITALS: BP 125/76; PULSE 56; RESP 18; TEMP 36.6; O2SAT 96
[2025-04-04] MEDS: Dextrose 5 % and 0.45 % NaCl 1,000 ML 80 ML IVCONT ×2 (12:20→23:06)
[2025-04-04 15:25] VITALS: BP 120/82; PULSE 66; RESP 16; O2SAT 98
[2025-04-04] MEDS: NORGESTIMATE ETHINYL ESTRADIOL 1 EACH PO (18:00)
[2025-04-04 19:35] VITALS: BP 127/70; PULSE 59; RESP 16; TEMP 36.9; O2SAT 99
[2025-04-05] VITALS (7 sets, daily range): BP systolic 99–134; BP diastolic 60–85; PULSE 57–74; RESP 17–18; TEMP 36.3–37; O2SAT 96–100
[2025-04-05] MEDS: Metoprolol Succinate ER 25 MG TAB.ER.24H PO (08:54)
[2025-04-05] MEDS: BUPRENORPHINE HCL 900 MCG 900 EACH BUCCAL ×2 (09:03→21:34)
[2025-04-05] MEDS: diazePAM 10 MG/2 ML CARTRIDGE 5 MG IVPUSH ×3 (09:48→20:37)
[2025-04-05] MEDS: Dextrose 5 % and 0.45 % NaCl 1,000 ML 80 ML IVCONT ×2 (10:47→21:29)
--- NOTE | 2025-04-05 10:56 | HO.PM.IMPN ---
Subjective Subjective Date of Service: 04/05/25 Interval History: ongoing migraine, nausea Physical Exam Exam: Exam: General: AO X 3 Resp: CTA bilateral, no accessory muscles used CVS: S1,S2,RRR GI: soft, non tender, non distended Neuro: motor grossly intact, alert Psych: appropriate affect, appropriate insight Vital Signs: Vital Signs: Last Vital Signs Temp 98.6 F 04/05/25 08:00 Pulse 66 04/05/25 08:00 Resp 17 04/05/25 08:00 BP 134/85 04/05/25 08:00 Pulse Ox 96 04/05/25 08:00 O2 Del Method Room Air 04/05/25 08:00 BMI result Body Mass Index 19.4 Objective Data Active Medications Acetaminophen (Acetaminophen 325 Mg Tablet) 650 mg PO Q6H PRN PRN Reason: Pain, Mild 1-3,fever,headache Albuterol Sulfate (Albuterol Sulfate 90 Mcg 8 Gm Inhaler) 2 puff INHALE Q4H PRN PRN Reason: Dyspnea Albuterol/Ipratropium (Albuterol/Iprat 2.5/0.5mg 3 Ml Ampul.Neb) 3 ml INHALE Q4H PRN PRN Reason: Shortness of Breath/Wheezing Calcium Carbonate (Calcium Carbonate 750 Mg Tab.Chew) 750 mg PO Q4H PRN PRN Reason: Heartburn Hydromorphone HCl (Hydromorphone Hcl 1 Mg/Ml Syringe) 1 mg IVPUSH Q4H PRN; Protocol PRN Reason: Pain, Severe (Pain Scale 7-10) Last Admin: 04/05/25 06:31 Dose: 1 mg Documented By: DECLAN Dextrose/Sodium Chloride (D51/2ns) 1,000 mls @ 80 mls/hr IVCONT .[id number] [facility] Last Admin: 04/05/25 10:47 Dose: 80 mls/hr Documented By: YEHUDA Ketorolac Tromethamine (Ketorolac Tromethamine 15 Mg/Ml Vial) 15 mg IVPUSH Q6H PRN PRN Reason: migraine headache, moderate Magnesium Hydroxide (Milk Of Magnesia 30 Ml Oral.Susp) 30 ml PO DAILY PRN PRN Reason: Constipation Melatonin (Melatonin 3 Mg Tablet) 6 mg PO BEDTIME PRN PRN Reason: Insomnia Methenamine Hippurate (Methenamine Hippurate 1 Gm Tablet) 1 gm PO DAILY [facility] Last Admin: 04/05/25 08:53 Dose: 1 gm Documented By: YEHUDA Metoprolol Succinate (Metoprolol Succinate Er 25 Mg Tab.Er.24h) 25 mg PO DAILY [facility]; Protocol Last Admin: 04/05/25 08:54 Dose: 25 mg Documented By: YEHUDA Multivitamins/Vitamin C (Multivitamin Tablet) 1 tab PO DAILY [facility] Last Admin: 04/05/25 08:54 Dose: 1 tab Documented By: YEHUDA Pt Own (Cromolyn 100 Mg/5 Ml Concentrate ) 200 mg PO QIDWMHS [facility] Last Admin: 04/05/25 09:00 Dose: 200 mg Documented By: YEHUDA Pt Own ( Buprenorphine Hcl [ [place]] 900 Mcg Film) 900 mcg BUCCAL BID@1000,2200 [facility] Last Admin: 04/05/25 09:03 Dose: 900 mcg Documented By: YEHUDA Pt Own (Norgestimate -Ethinyl Estradiol [ Sprintec (28)] 0.25- 35 Mg-Mcg Ta 1 tab PO DAILY@1800 [facility] Last Admin: 04/04/25 18:00 Dose: 1 tab Documented By: CORBIN Omeprazole (Omeprazole 20 Mg Capsule.Dr) 20 mg PO DAILY@0630 [facility] Last Admin: 04/05/25 06:31 Dose: 20 mg Documented By: DECLAN Ondansetron HCl (Ondansetron Hcl 4 Mg/2 Ml Vial) 4 mg IVPUSH Q8H PRN PRN Reason: Nausea and Vomiting Last Admin: 04/05/25 08:54 Dose: 4 mg Documented By: YEHUDA Promethazine HCl (Promethazine Hcl 25 Mg Tablet) 25 mg PO Q4H PRN PRN Reason: N/V unrelieved by Jeffrey Last Admin: 04/04/25 17:04 Dose: 25 mg Documented By: CORBIN Pyridostigmine [place] (Pyridostigmine [place] 60 Mg Tablet) 60 mg PO DAILY [facility] Last Admin: 04/05/25 08:54 Dose: 60 mg Documented By: YEHUDA Pyridostigmine [place] (Pyridostigmine [place] 60 Mg Tablet) 30 mg PO BEDTIME [facility] Last Admin: 04/04/25 22:59 Dose: 30 mg Documented By: DECLAN Sodium Chloride (0.9 % Sodium Chloride Flush 3 Ml Syringe) 3 ml IVFLUSH QSHIFT [facility] Last Admin: 04/05/25 08:48 Dose: Not Given Documented By: YEHUDA Non-Admin Reason: IV Running Valproic Acid (Valproic Acid 250 Mg Capsule) 500 mg PO BID [facility] Last Admin: 04/05/25 08:53 Dose: 500 mg Documented By: YEHUDA Labs 03/31/25 15:57 03/31/25 15:57 Assessment and Plan (1) Status migrainosus: Status: Acute Plan 29yo F diagnosed with migraine disorder, occipital neuralgia, dysmenorrhea, celiac disease, endometriosis, dysautonomia, Grecia-Danlos, bipolar 1, OCD, PTSD, body dysmorphic disorder, mast cell activation disorder presented with headache, nausea status migrainosus no improvement, now off depakote has had some relief with dilaudid neuro appreciated - recommending outpatient CGRP or botox conitnue iv hydration, will try valium gerd ppi dysautonomia conitnue mestinon, toprol dvt prophylaxis - mechainical, early ambulation full code reason for continued hospitalization:not eating Quality Stroke Does the patient have a stroke diagnosis?: No Reason for No Anti-thrombotic by Day Two: Drug treatment not indicated VTE Prior VTE?: No VTE Risk Level:: Medical - low VTE Device Contraindication: Treatment Not Indicated VTE Drug Contraindication: Treatment Not Indicated
[2025-04-05] MEDS: NORGESTIMATE ETHINYL ESTRADIOL 1 EACH PO (17:05)
--- NOTE | 2025-04-06 01:29 | PC.NURSE ---
Patient declined scheduled HS dose of valproic acid due to increased nausea/vomitting after attempting to eat dinner. Patient reported to this RN that she would be willing to try valproic acid in another route until she is able to tolerate PO better. Will pass info onto incoming nurse.
[2025-04-06 03:26] VITALS: BP 116/74; PULSE 74; RESP 18; TEMP 36.6; O2SAT 97
[2025-04-06] MEDS: diazePAM 10 MG/2 ML CARTRIDGE 5 MG IVPUSH ×5 (03:51→22:20)
[2025-04-06 07:42] VITALS: BP 117/66; PULSE 68; RESP 16; TEMP 36.4; O2SAT 100
[2025-04-06] MEDS: Metoprolol Succinate ER 25 MG TAB.ER.24H PO (08:00)
[2025-04-06] MEDS: BUPRENORPHINE HCL 900 MCG 900 EACH BUCCAL ×2 (09:31→22:30)
--- NOTE | 2025-04-06 09:59 | PC.NURSE ---
emar states IVF are infused however timing is off and IVF are infusing.
--- NOTE | 2025-04-06 10:28 | MHC.CM.PN ---
Patient not medically cleared for dc at this time. CM will continue to follow.
--- NOTE | 2025-04-06 10:45 | P.PNIM_ITS ---
Subjective Subjective Date of Service: 04/06/25 Interval History: ongoing migraine, nausea Physical Exam 2 Exam: Exam: General: AO X 3 Resp: CTA bilateral, no accessory muscles used CVS: S1,S2,RRR GI: soft, non tender, non distended Neuro: motor grossly intact, alert Psych: appropriate affect, appropriate insight Vital Signs: Vital Signs: Last Vital Signs Temp 97.5 F 04/06/25 07:42 Pulse 68 04/06/25 07:42 Resp 16 04/06/25 07:42 BP 117/66 04/06/25 07:42 Pulse Ox 100 04/06/25 07:42 O2 Del Method Room Air 04/06/25 07:42 BMI result Body Mass Index 19.4 Objective Data Active Medications Acetaminophen (Acetaminophen 325 Mg Tablet) 650 mg PO Q6H PRN PRN Reason: Pain, Mild 1-3,fever,headache Albuterol Sulfate (Albuterol Sulfate 90 Mcg 8 Gm Inhaler) 2 puff INHALE Q4H PRN PRN Reason: Dyspnea Albuterol/Ipratropium (Albuterol/Iprat 2.5/0.5mg 3 Ml Ampul.Neb) 3 ml INHALE Q4H PRN PRN Reason: Shortness of Breath/Wheezing Calcium Carbonate (Calcium Carbonate 750 Mg Tab.Chew) 750 mg PO Q4H PRN PRN Reason: Heartburn Diazepam (Diazepam 10 Mg/2 Ml Cartridge) 5 mg IVPUSH Q4H PRN PRN Reason: headache, anxiety, nausea Last Admin: 04/06/25 08:02 Dose: 5 mg Documented By: YEHUDA Hydromorphone HCl (Hydromorphone Hcl 1 Mg/Ml Syringe) 1 mg IVPUSH Q4H PRN; Protocol PRN Reason: Pain, Severe (Pain Scale 7-10) Last Admin: 04/06/25 08:03 Dose: 1 mg Documented By: YEHUDA Dextrose/Sodium Chloride (D51/2ns) 1,000 mls @ 80 mls/hr IVCONT .[id number] LUIS Last Infusion: 04/06/25 09:59 Dose: Infused Documented By: YEHUDA Ketorolac Tromethamine (Ketorolac Tromethamine 15 Mg/Ml Vial) 15 mg IVPUSH Q6H PRN PRN Reason: migraine headache, moderate Magnesium Hydroxide (Milk Of Magnesia 30 Ml Oral.Susp) 30 ml PO DAILY PRN PRN Reason: Constipation Melatonin (Melatonin 3 Mg Tablet) 6 mg PO BEDTIME PRN PRN Reason: Insomnia Methenamine Hippurate (Methenamine Hippurate 1 Gm Tablet) 1 gm PO DAILY [facility] Last Admin: 04/06/25 08:01 Dose: 1 gm Documented By: YEHUDA Metoprolol Succinate (Metoprolol Succinate Er 25 Mg Tab.Er.24h) 25 mg PO DAILY [facility]; Protocol Last Admin: 04/06/25 08:00 Dose: 25 mg Documented By: YEHUDA Multivitamins/Vitamin C (Multivitamin Tablet) 1 tab PO DAILY [facility] Last Admin: 04/06/25 08:00 Dose: 1 tab Documented By: YEHUDA Pt Own (Cromolyn 100 Mg/5 Ml Concentrate ) 200 mg PO QIDWMHS [facility] Last Admin: 04/06/25 08:00 Dose: 200 mg Documented By: YEHUDA Pt Own ( Buprenorphine Hcl [ Belbuca] 900 Mcg Film) 900 mcg BUCCAL BID@1000,2200 [facility] Last Admin: 04/06/25 09:31 Dose: 900 mcg Documented By: YEHUDA Pt Own (Norgestimate -Ethinyl Estradiol [ Sprintec (28)] 0.25- 35 Mg-Mcg Ta 1 tab PO DAILY@1800 [facility] Last Admin: 04/05/25 17:05 Dose: 1 tab Documented By: YEHUDA Omeprazole (Omeprazole 20 Mg Capsule.Dr) 20 mg PO DAILY@0630 [facility] Last Admin: 04/06/25 05:51 Dose: 20 mg Documented By: DEL Ondansetron HCl (Ondansetron Hcl 4 Mg/2 Ml Vial) 4 mg IVPUSH Q8H PRN PRN Reason: Nausea and Vomiting Last Admin: 04/06/25 03:56 Dose: 4 mg Documented By: DEL Promethazine HCl (Promethazine Hcl 25 Mg Tablet) 25 mg PO Q4H PRN PRN Reason: N/V unrelieved by Jeffrey Last Admin: 04/04/25 17:04 Dose: 25 mg Documented By: CORBIN Pyridostigmine [place] (Pyridostigmine [place] 60 Mg Tablet) 60 mg PO DAILY [facility] Last Admin: 04/06/25 08:00 Dose: 60 mg Documented By: YEHUDA Pyridostigmine [place] (Pyridostigmine [place] 60 Mg Tablet) 30 mg PO BEDTIME [facility] Last Admin: 04/05/25 21:23 Dose: 30 mg Documented By: BUSSIEL Sodium Chloride (0.9 % Sodium Chloride Flush 3 Ml Syringe) 3 ml IVFLUSH QSHIFT [facility] Last Admin: 04/06/25 07:57 Dose: Not Given Documented By: YEHUDA Non-Admin Reason: IV Running Valproic Acid (Valproic Acid 250 Mg Capsule) 500 mg PO BID [facility] Last Admin: 04/06/25 08:01 Dose: 500 mg Documented By: YEHUDA Labs 03/31/25 15:57 03/31/25 15:57 Assessment and Plan (1) Status migrainosus: Status: Acute Plan 29yo F diagnosed with migraine disorder, occipital neuralgia, dysmenorrhea, celiac disease, endometriosis, dysautonomia, Grecia-Danlos, bipolar 1, OCD, PTSD, body dysmorphic disorder, mast cell activation disorder presented with headache, nausea status migrainosus mild improvement, now off depakote has had some relief with dilaudid, valium neuro appreciated - recommending outpatient CGRP or botox conitnue iv hydration based on CTH recs will get MRI brain with and without contrast, also possible concern of CSF leak due to history of EDS gerd ppi dysautonomia conitnue mestinon, toprol dvt prophylaxis - mechanical, early ambulation full code reason for continued hospitalization:not eating, pain controlled Quality Stroke Does the patient have a stroke diagnosis?: No Reason for No Anti-thrombotic by Day Two: Drug treatment not indicated VTE Prior VTE?: No VTE Risk Level:: Medical - low VTE Device Contraindication: Treatment Not Indicated VTE Drug Contraindication: Treatment Not Indicated
[2025-04-06 11:43] VITALS: BP 120/73; PULSE 64; RESP 16; TEMP 36.9; O2SAT 100
--- NOTE | 2025-04-06 15:10 | PC.NURSE ---
Patient back from MRI, very emotional, continue PRN Medications to attempt relief. Crying that she can't eat food even tough she tries. No vomiting noted.
[2025-04-06 15:30] VITALS: BP 125/89; PULSE 81; RESP 20; TEMP 36.3; O2SAT 95
--- NOTE | 2025-04-06 16:30 | PC.NURSE ---
Pt very tearful on and off through the day. Medicated per emar. On and off sleeping today, states pain is around a 9 but is able to sleep and take naps through the day. MRI Neg per MD, pt educated. Educated on symptom control. Ambulating to the bathroom with a walker and staff stand by assist. Call muse within reach, Able to make needs known, visits today from boyfriend and father? Not tolerating much PO but is drinking soda and water.
[2025-04-06] MEDS: NORGESTIMATE ETHINYL ESTRADIOL 1 EACH PO (17:49)
[2025-04-06 19:41] VITALS: BP 108/69; PULSE 57; RESP 16; TEMP 36.7; O2SAT 100
--- NOTE | 2025-04-06 22:07 | PC.NURSE ---
Assumed care of patient at 1915. A&Ox4. Patient resting in room with lights off to decrease stimuli and for comfort. Vital signs stable with soft SBP. Patient reported moderate to severe pain, but tolerating upon assessment. Medication options discussed. IVF infusing at ordered rate. No signs or symptoms of distress. Verbalizing needs. Call muse within reach. Bed in low position. Refusing bed alarm. Safety measures discussed. Patient verbalized understanding. Care transferred to oncoming OLYA Perry. Safe-start shift change assessment completed.
--- NOTE | 2025-04-06 23:00 | PC.NURSE ---
IVF fluids discontinued, pt requested to continue IVF d/t pt not tolerating PO yet, Dr. Wong made aware. New orders placed.
[2025-04-06] MEDS: Lactated Ringers 1,000 ML 50 ML IVCONT (23:20)
[2025-04-06 23:28] VITALS: BP 113/68; PULSE 65; RESP 17; TEMP 36.3; O2SAT 100
[2025-04-07] VITALS (7 sets, daily range): BP systolic 100–124; BP diastolic 60–76; PULSE 55–67; RESP 16–18; TEMP 36.1–37.1; O2SAT 95–100
[2025-04-07] MEDS: diazePAM 10 MG/2 ML CARTRIDGE 5 MG IVPUSH ×4 (06:11→19:46)
[2025-04-07] MEDS: Metoprolol Succinate ER 25 MG TAB.ER.24H PO (08:26)
--- NOTE | 2025-04-07 09:32 | P.PNIM_ITS ---
Subjective Subjective Date of Service: 04/07/25 Interval History: reports minimal improvement in headache, inability to tolerate po Physical Exam 2 Exam: Exam: General: AO X 3 Resp: CTA bilateral, no accessory muscles used CVS: S1,S2,RRR GI: soft, non tender, non distended Neuro: motor grossly intact, alert Psych: appropriate affect, appropriate insight Vital Signs: Vital Signs: Last Vital Signs Temp 98.5 F 04/07/25 07:23 Pulse 62 04/07/25 08:26 Resp 16 04/07/25 07:23 BP 100/62 04/07/25 08:26 Pulse Ox 99 04/07/25 07:23 O2 Del Method Room Air 04/07/25 07:23 BMI result Body Mass Index 19.4 Objective Data Active Medications Acetaminophen (Acetaminophen 325 Mg Tablet) 650 mg PO Q6H PRN PRN Reason: Pain, Mild 1-3,fever,headache Albuterol Sulfate (Albuterol Sulfate 90 Mcg 8 Gm Inhaler) 2 puff INHALE Q4H PRN PRN Reason: Dyspnea Albuterol/Ipratropium (Albuterol/Iprat 2.5/0.5mg 3 Ml Ampul.Neb) 3 ml INHALE Q4H PRN PRN Reason: Shortness of Breath/Wheezing Calcium Carbonate (Calcium Carbonate 750 Mg Tab.Chew) 750 mg PO Q4H PRN PRN Reason: Heartburn Diazepam (Diazepam 10 Mg/2 Ml Cartridge) 5 mg IVPUSH Q4H PRN PRN Reason: headache, anxiety, nausea Last Admin: 04/07/25 06:11 Dose: 5 mg Documented By: VENUS Hydromorphone HCl (Hydromorphone Hcl 1 Mg/Ml Syringe) 1 mg IVPUSH Q4H PRN; Protocol PRN Reason: Pain, Severe (Pain Scale 7-10) Last Admin: 04/07/25 06:15 Dose: 1 mg Documented By: VENUS Lactated Ringer's (Lr) 1,000 mls @ 50 mls/hr IVCONT .Q20H [facility] Last Admin: 04/06/25 23:20 Dose: 50 mls/hr Documented By: VENUS Ketorolac Tromethamine (Ketorolac Tromethamine 15 Mg/Ml Vial) 15 mg IVPUSH Q6H PRN PRN Reason: migraine headache, moderate Magnesium Hydroxide (Milk Of Magnesia 30 Ml Oral.Susp) 30 ml PO DAILY PRN PRN Reason: Constipation Melatonin (Melatonin 3 Mg Tablet) 6 mg PO BEDTIME PRN PRN Reason: Insomnia Methenamine Hippurate (Methenamine Hippurate 1 Gm Tablet) 1 gm PO DAILY [facility] Last Admin: 04/07/25 08:26 Dose: 1 gm Documented By: RASHIDA Metoprolol Succinate (Metoprolol Succinate Er 25 Mg Tab.Er.24h) 25 mg PO DAILY [facility]; Protocol Last Admin: 04/07/25 08:26 Dose: 25 mg Documented By: RASHIDA Multivitamins/Vitamin C (Multivitamin Tablet) 1 tab PO DAILY [facility] Last Admin: 04/07/25 08:26 Dose: 1 tab Documented By: RASHIDA Pt Own (Cromolyn 100 Mg/5 Ml Concentrate ) 200 mg PO QIDWMHS [facility] Last Admin: 04/07/25 08:26 Dose: 200 mg Documented By: RASHIDA Pt Own ( Buprenorphine Hcl [ Belbuca] 900 Mcg Film) 900 mcg BUCCAL BID@1000,2200 [facility] Last Admin: 04/06/25 22:30 Dose: 900 mcg Documented By: VENUS Comments: unable to scan pt personal medication, barcode in pyxis Pt Own (Norgestimate -Ethinyl Estradiol [ Sprintec (28)] 0.25- 35 Mg-Mcg Ta 1 tab PO DAILY@1800 [facility] Last Admin: 04/06/25 17:49 Dose: 1 tab Documented By: YEHUDA Omeprazole (Omeprazole 20 Mg Capsule.) 20 mg PO DAILY@0630 [facility] Last Admin: 04/07/25 06:05 Dose: 20 mg Documented By: VENUS Ondansetron HCl (Ondansetron Hcl 4 Mg/2 Ml Vial) 4 mg IVPUSH Q8H PRN PRN Reason: Nausea and Vomiting Last Admin: 04/07/25 06:13 Dose: 4 mg Documented By: VENUS Promethazine HCl (Promethazine Hcl 25 Mg Tablet) 25 mg PO Q4H PRN PRN Reason: N/V unrelieved by Jeffrey Last Admin: 04/04/25 17:04 Dose: 25 mg Documented By: CORBIN Pyridostigmine [place] (Pyridostigmine [place] 60 Mg Tablet) 60 mg PO DAILY [facility] Last Admin: 04/07/25 08:26 Dose: 60 mg Documented By: RASHIDA Pyridostigmine [place] (Pyridostigmine [place] 60 Mg Tablet) 30 mg PO BEDTIME [facility] Last Admin: 04/06/25 22:09 Dose: 30 mg Documented By: VENUS Sodium Chloride (0.9 % Sodium Chloride Flush 3 Ml Syringe) 3 ml IVFLUSH QSHIFT [facility] Last Admin: 04/07/25 08:25 Dose: Not Given Documented By: RASHIDA Non-Admin Reason: IV Running Valproic Acid (Valproic Acid 250 Mg Capsule) 500 mg PO BID [facility] Last Admin: 04/07/25 08:26 Dose: 500 mg Documented By: RASHIDA Labs 03/31/25 15:57 03/31/25 15:57 Assessment and Plan (1) Status migrainosus: Status: Acute Plan 29yo F diagnosed with migraine disorder, occipital neuralgia, dysmenorrhea, celiac disease, endometriosis, dysautonomia, Grecia-Danlos, bipolar 1, OCD, PTSD, body dysmorphic disorder, mast cell activation disorder presented with headache, nausea status migrainosus mild improvement, now off depakote due to lack of improvement has had some relief with dilaudid, valium - will start to wean tomorrow neuro appreciated - recommending outpatient CGRP inihibitor or botox continue iv hydration MRI brain negative, with no evidence of csf leak gerd ppi dysautonomia continue mestinon, toprol dvt prophylaxis - mechanical, early ambulation full code reason for continued hospitalization:not eating, pain control Quality Stroke Does the patient have a stroke diagnosis?: No Reason for No Anti-thrombotic by Day Two: Drug treatment not indicated VTE Prior VTE?: No VTE Risk Level:: Medical - low VTE Device Contraindication: Treatment Not Indicated VTE Drug Contraindication: Treatment Not Indicated
[2025-04-07] MEDS: BUPRENORPHINE HCL 900 MCG 900 EACH BUCCAL (09:33)
[2025-04-07] MEDS: 0.9 % Sodium Chloride Flush 3 ML SYRINGE IVFLUSH ×2 (15:37→19:58)
--- NOTE | 2025-04-07 15:47 | PC.NURSE ---
1530 pt given zofran , Dilaudid , Valium . pt requesting to speak to . and this RN at bedside , pt significant other present , MD states plan of slowly wean off meds , pt unhappy with plan , pt crying hysterical . pt refusing vital signs.
[2025-04-07] MEDS: NORGESTIMATE ETHINYL ESTRADIOL 1 EACH PO (17:00)
[2025-04-07] MEDS: Lactated Ringers 1,000 ML 50 ML IVCONT (19:48)
[2025-04-08] VITALS (8 sets, daily range): BP systolic 97–125; BP diastolic 55–75; PULSE 61–85; RESP 12–20; TEMP 36.2–37.4; O2SAT 98–100
[2025-04-08] MEDS: diazePAM 10 MG/2 ML CARTRIDGE 5 MG IVPUSH ×2 (00:03→04:18)
--- NOTE | 2025-04-08 03:48 | PC.NURSE ---
Patient given phenergan PO after nausea unrelieved by zofran. Patient subsequently vomited. Hospitalist contacted via [email or web address] for additional antiemetic at 0325, awaiting response.
[2025-04-08] MEDS: 0.9 % Sodium Chloride Flush 3 ML SYRINGE IVFLUSH ×2 (07:39→19:44)
[2025-04-08] MEDS: diazePAM 10 MG/2 ML CARTRIDGE 2.5 MG IVPUSH ×4 (09:10→22:07)
--- NOTE | 2025-04-08 09:16 | HO.PM.IMPN ---
Subjective Subjective Date of Service: 04/08/25 Interval History: still with nausea, headache Physical Exam Exam: Exam: General: AO X 3 Resp: CTA bilateral, no accessory muscles used CVS: S1,S2,RRR GI: soft, non tender, non distended Neuro: motor grossly intact, alert Vital Signs: Vital Signs: Last Vital Signs Temp 98.0 F 04/08/25 08:08 Pulse 85 04/08/25 08:08 Resp 20 04/08/25 08:08 BP 120/73 04/08/25 08:08 Pulse Ox 100 04/08/25 08:08 O2 Del Method Room Air 04/08/25 08:08 BMI result Body Mass Index 19.4 Objective Data Active Medications Albuterol Sulfate (Albuterol Sulfate 90 Mcg 8 Gm Inhaler) 2 puff INHALE Q4H PRN PRN Reason: Dyspnea Calcium Carbonate (Calcium Carbonate 750 Mg Tab.Chew) 750 mg PO Q4H PRN PRN Reason: Heartburn Diazepam (Diazepam 10 Mg/2 Ml Cartridge) 2.5 mg IVPUSH Q4H PRN PRN Reason: headache, anxiety, nausea Hydromorphone HCl (Hydromorphone Hcl 1 Mg/Ml Syringe) 0.5 mg IVPUSH Q4H PRN; Protocol PRN Reason: Pain, Severe (Pain Scale 7-10) Lactated Ringer's (Lr) 1,000 mls @ 50 mls/hr IVCONT .Q20H [facility] Last Admin: 04/07/25 19:48 Dose: 50 mls/hr Documented By: SHLOMO-MARYELLEN Acetaminophen (Ofirmev) 1,000 mg in 100 mls @ 400 mls/hr IV Q6H PRN PRN Reason: severe pain Ketorolac Tromethamine (Ketorolac Tromethamine 15 Mg/Ml Vial) 15 mg IVPUSH Q6H PRN PRN Reason: migraine headache, moderate Magnesium Hydroxide (Milk Of Magnesia 30 Ml Oral.Susp) 30 ml PO DAILY PRN PRN Reason: Constipation Melatonin (Melatonin 3 Mg Tablet) 6 mg PO BEDTIME PRN PRN Reason: Insomnia Methenamine Hippurate (Methenamine Hippurate 1 Gm Tablet) 1 gm PO DAILY [facility] Last Admin: 04/07/25 08:26 Dose: 1 gm Documented By: RASHIDA Metoprolol Succinate (Metoprolol Succinate Er 25 Mg Tab.Er.24h) 25 mg PO DAILY [facility]; Protocol Last Admin: 04/07/25 08:26 Dose: 25 mg Documented By: RASHIDA Multivitamins/Vitamin C (Multivitamin Tablet) 1 tab PO DAILY [facility] Last Admin: 04/07/25 08:26 Dose: 1 tab Documented By: RASHIDA Pt Own (Cromolyn 100 Mg/5 Ml Concentrate ) 200 mg PO QIDWMHS [facility] Last Admin: 04/08/25 00:06 Dose: 200 mg Documented By: LAURI Comments: administered late as pt requested HS meds held until pain meds due. Pt Own ( Buprenorphine Hcl [ Belbuca] 900 Mcg Film) 900 mcg BUCCAL BID@1000,2200 [facility] Last Admin: 04/08/25 00:14 Dose: Not Given Documented By: LAURI Non-Admin Reason: Patient Refused Pt Own (Norgestimate -Ethinyl Estradiol [ Sprintec (28)] 0.25- 35 Mg-Mcg Ta 1 tab PO DAILY@1800 [facility] Last Admin: 04/07/25 17:00 Dose: 1 tab Documented By: MIGUEL Omeprazole (Omeprazole 20 Mg Capsule.Dr) 20 mg PO DAILY@0630 [facility] Last Admin: 04/08/25 06:46 Dose: Not Given Documented By: LAURI Non-Admin Reason: Nausea Ondansetron HCl (Ondansetron Hcl 4 Mg/2 Ml Vial) 4 mg IVPUSH Q8H PRN PRN Reason: Nausea and Vomiting Last Admin: 04/08/25 07:36 Dose: 4 mg Documented By: HALEY Promethazine HCl (Promethazine Hcl 25 Mg Tablet) 25 mg PO Q4H PRN PRN Reason: N/V unrelieved by Jeffrey Last Admin: 04/08/25 02:52 Dose: 25 mg Documented By: ROBBIN Pyridostigmine [place] (Pyridostigmine [place] 60 Mg Tablet) 60 mg PO DAILY [facility] Last Admin: 04/07/25 08:26 Dose: 60 mg Documented By: RASHIDA Pyridostigmine [place] (Pyridostigmine [place] 60 Mg Tablet) 30 mg PO BEDTIME [facility] Last Admin: 04/08/25 00:09 Dose: 30 mg Documented By: LAURI Comments: administered late as patient requested HS meds held until pain meds due Sodium Chloride (0.9 % Sodium Chloride Flush 3 Ml Syringe) [facility] Last Admin: 04/08/25 07:39 Dose: 3 ml Documented By: HALEY Labs 03/31/25 15:57 03/31/25 15:57 Assessment and Plan (1) Status migrainosus: Status: Acute Plan 29yo F diagnosed with migraine disorder, occipital neuralgia, dysmenorrhea, celiac disease, endometriosis, dysautonomia, Grecia-Danlos, bipolar 1, OCD, PTSD, body dysmorphic disorder, mast cell activation disorder presented with headache, nausea status migrainosus mild improvement, now off depakote due to lack of improvement has had some relief with dilaudid, valium - will start to wean today neuro appreciated - recommending outpatient CGRP inihibitor or botox continue iv hydration, will change tylenol to iv and add compazine IV as needed MRI brain negative, with no evidence of csf leak gerd ppi dysautonomia continue mestinon, toprol dvt prophylaxis - mechanical, early ambulation full code reason for continued hospitalization:not eating, pain control Quality Stroke Does the patient have a stroke diagnosis?: No Reason for No Anti-thrombotic by Day Two: Drug treatment not indicated VTE Prior VTE?: No VTE Risk Level:: Medical - low VTE Device Contraindication: Treatment Not Indicated VTE Drug Contraindication: Treatment Not Indicated
--- NOTE | 2025-04-08 09:47 | PC.NURSE ---
Addendum entered by Cristel Prado RN 04/08/25 10:31: 10:30 MD Healy returned to bedside at pts request to discuss pain medication options, at this time pt crying states she does not feel safe, pt gave permission for MD to discuss medication options with Father who is now present at bedside. MD Healy discussed plan with Father. IV Tylenol offered to pt but pt is refusing at this. Original Note: MD Healy at bedside this AM to discuss plan to wean pt down on IV Dilaudid and Valium dose, this RN asked Pt experience enrollment eligibility representative to be present during this conversation. Pt is expressing that she is frustrated with plan and crying, pt states a decrease in medications will not work with her current pain and nausea levels. Pt allowed this RN to administer IVP dilaudid and Valium at new decreased doses per MAR but is refusing her scheduled PO medications due to nausea. At pain reassessment pt is reporting pain to be 10/10, MD Healy made aware.
--- NOTE | 2025-04-08 12:31 | MHC.CM.PN ---
Per MD rounds patient is not medically cleared to discharge. She requires further pain management. DP home self care. Patient will arrange for transportation home.
--- NOTE | 2025-04-08 13:31 | PC.NURSE ---
Pt endorsing 10/10 headache pain and severe nausea. PRN Dilaudid and Valium given per MAR, pt noted to be falling asleep during medication administration, pt awakens easily to voice, Father at bedside. Pt educated on importance of notifying this RN if any vomiting occurs to we can accurately measure I&O.
[2025-04-08] MEDS: Lactated Ringers 1,000 ML 50 ML IVCONT (17:05)
[2025-04-08] MEDS: NORGESTIMATE ETHINYL ESTRADIOL 1 EACH PO (17:12)
--- NOTE | 2025-04-08 17:57 | PC.NURSE ---
17:06 Md Healy made aware via tiger text that pt continues to endorse severe pain and nausea no vomiting reported, PRN medications administered per MAR. No new orders at this time.
[2025-04-09] MEDS: diazePAM 10 MG/2 ML CARTRIDGE 2.5 MG IVPUSH ×4 (02:07→20:37)
[2025-04-09 03:57] VITALS: BP 101/55; PULSE 54; RESP 18; TEMP 36.4; O2SAT 100
[2025-04-09 06:40] LABS: Hematocrit 36.4 % (37.0-47.0); Hemoglobin 12.3 g/dl (12.0-16.0); Mean Corpuscular HGB Conc 33.8 g/dl (31.0-35.0); Mean Corpuscular Hemoglobin 30.4 pg (27.0-33.0); Mean Corpuscular Volume 90.1 fL (80.0-98.0); NRBC Abs Auto 0.000 X10*3/uL (0.0-0.012); NRBC Pct Auto 0.0 /100WBC (0.0-0.2); Platelet Count 203 X10*3/uL (160-400); Red Blood Count 4.04 X10*6/uL (4.20-5.50); White Blood Count 5.2 X10*3/uL (4.8-10.8)
[2025-04-09 06:52] VITALS: BP 113/66; PULSE 70; RESP 16; TEMP 36.6; O2SAT 98
[2025-04-09 06:55] LABS: Alanine Aminotransferase 22 U/L (0-31); Albumin Level 3.7 g/dL (3.5-5.0); Alkaline Phosphatase 52 U/L (39-117); Anion Gap 12 (12-20); Aspartate Amino Transferase 24 U/L (5-31); Blood Urea Nitrogen 7 mg/dL (9-16); Calcium 8.9 mg/dL (8.4-10.2); Carbon Dioxide 27 mmol/L (22-29); Chloride 105 mmol/L (96-108); Creatinine Clr Calc Pharmacy 88.9; Estimated Glomerular Filt Rate > 60; Magnesium 1.6 mg/dL (1.6-2.6); Potassium 4.1 mmol/L (3.3-5.1); Sodium 140 mmol/L (135-145); Total Protein 6.2 g/dL (6.5-8.0)
[2025-04-09 08:35] VITALS: BP 120/62; PULSE 68; RESP 16; TEMP 36.6; O2SAT 98
[2025-04-09] MEDS: Metoprolol Succinate ER 25 MG TAB.ER.24H PO (09:01)
--- NOTE | 2025-04-09 09:02 | P.PNIM_ITS ---
Subjective Subjective Date of Service: 04/09/25 Interval History: still with nausea, headache Physical Exam 2 Exam: Exam: General: AO X 3 Resp: CTA bilateral, no accessory muscles used CVS: S1,S2,RRR GI: soft, non tender, non distended Neuro: motor grossly intact, alert Vital Signs: Vital Signs: Last Vital Signs Temp 97.8 F 04/09/25 08:35 Pulse 68 04/09/25 08:35 Resp 16 04/09/25 08:35 BP 120/62 04/09/25 08:35 Pulse Ox 98 04/09/25 08:35 O2 Del Method Room Air 04/09/25 08:35 BMI result Body Mass Index 19.4 Objective Data Active Medications Albuterol Sulfate (Albuterol Sulfate 90 Mcg 8 Gm Inhaler) 2 puff INHALE Q4H PRN PRN Reason: Dyspnea Baclofen (Baclofen 10 Mg Tablet) 10 mg PO TID [facility] Calcium Carbonate (Calcium Carbonate 750 Mg Tab.Chew) 750 mg PO Q4H PRN PRN Reason: Heartburn Diazepam (Diazepam 10 Mg/2 Ml Cartridge) 2.5 mg IVPUSH Q4H PRN PRN Reason: headache, anxiety, nausea Last Admin: 04/09/25 06:09 Dose: 2.5 mg Documented By: DANIEL Hydromorphone HCl (Hydromorphone Hcl 1 Mg/Ml Syringe) 0.5 mg IVPUSH Q4H PRN; Protocol PRN Reason: Pain, Severe (Pain Scale 7-10) Last Admin: 04/09/25 06:07 Dose: 0.5 mg Documented By: DANIEL Acetaminophen (irmev) 1,000 mg in 100 mls @ 400 mls/hr IV Q6H PRN PRN Reason: severe pain Last Infusion: 04/08/25 23:45 Dose: Infused Documented By: JUAN Magnesium Hydroxide (Milk Of Magnesia 30 Ml Oral.Susp) 30 ml PO DAILY PRN PRN Reason: Constipation Melatonin (Melatonin 3 Mg Tablet) 6 mg PO BEDTIME PRN PRN Reason: Insomnia Methenamine Hippurate (Methenamine Hippurate 1 Gm Tablet) 1 gm PO DAILY [facility] Last Admin: 04/08/25 09:26 Dose: Not Given Documented By: HALEY Non-Admin Reason: Patient Refused Metoprolol Succinate (Metoprolol Succinate Er 25 Mg Tab.Er.24h) 25 mg PO DAILY [facility]; Protocol Last Admin: 04/08/25 09:26 Dose: Not Given Documented By: HALEY Non-Admin Reason: Patient Refused Multivitamins/Vitamin C (Multivitamin Tablet) 1 tab PO DAILY [facility] Last Admin: 04/08/25 09:26 Dose: Not Given Documented By: HALEY Non-Admin Reason: Patient Refused Pt Own (Cromolyn 100 Mg/5 Ml Concentrate ) 200 mg PO QIDWMHS [facility] Last Admin: 04/08/25 21:56 Dose: 200 mg Documented By: JUAN Pt Own ( Buprenorphine Hcl [ Belbuca] 900 Mcg Film) 900 mcg BUCCAL BID@1000,2200 [facility] Last Admin: 04/08/25 22:12 Dose: Not Given Documented By: JUAN Non-Admin Reason: Patient Refused Pt Own (Norgestimate -Ethinyl Estradiol [ Sprintec (28)] 0.25- 35 Mg-Mcg Ta 1 tab PO DAILY@1800 [facility] Last Admin: 04/08/25 17:12 Dose: 1 tab Documented By: HALEY Omeprazole (Omeprazole 20 Mg Capsule.Dr) 20 mg PO DAILY@0630 [facility] Last Admin: 04/09/25 06:10 Dose: 20 mg Documented By: DANIEL Ondansetron HCl (Ondansetron Hcl 4 Mg/2 Ml Vial) 4 mg IVPUSH Q8H PRN PRN Reason: Nausea and Vomiting Last Admin: 04/09/25 05:04 Dose: 4 mg Documented By: JUAN Prochlorperazine Edisylate (Prochlorperazine Edisylate 10 Mg/2 Ml Vial) 5 mg IVPUSH Q6H PRN PRN Reason: Nausea and Vomiting Last Admin: 04/08/25 12:36 Dose: 5 mg Documented By: HALEY Promethazine HCl (Promethazine Hcl 25 Mg Tablet) 25 mg PO Q4H PRN PRN Reason: N/V unrelieved by Jeffrey Last Admin: 04/08/25 02:52 Dose: 25 mg Documented By: ROBBIN Pyridostigmine [place] (Pyridostigmine [place] 60 Mg Tablet) 60 mg PO DAILY [facility] Last Admin: 04/08/25 09:27 Dose: Not Given Documented By: HALEY Non-Admin Reason: Patient Refused Pyridostigmine [place] (Pyridostigmine [place] 60 Mg Tablet) 30 mg PO BEDTIME [facility] Last Admin: 04/08/25 21:55 Dose: 30 mg Documented By: JUAN Sodium Chloride (0.9 % Sodium Chloride Flush 3 Ml Syringe) 3 ml IVFLUSH QSHIFT [facility] Last Admin: 04/09/25 07:06 Dose: Not Given Documented By: FATMATA Non-Admin Reason: IV Running Tramadol HCl (Tramadol Hcl 50 Mg Tablet) 25 mg PO Q6H PRN PRN Reason: Breakthrough Pain Last Admin: 04/09/25 05:00 Dose: 25 mg Documented By: JUAN Labs 04/09/25 05:48 04/09/25 05:48 Labs: Laboratory Results - last 24 hr 04/09/25 05:48 MCV 90.1 MCH 30.4 MCHC 33.8 RDW 13.1 Plt Count 203 MPV 11.2 Absolute Nucleated RBC 0.000 Nucleated RBC % (auto) 0.0 Anion Gap 12 Estim Creat Clear Calc 88.9 Estimated GFR > 60 Random Glucose 78 Calcium 8.9 D Magnesium 1.6 Total Bilirubin 0.5 Direct Bilirubin 0.2 AST 24 ALT 22 Alkaline Phosphatase 52 Total Protein 6.2 L Albumin 3.7 Assessment and Plan (1) Status migrainosus: Status: Acute Plan 29yo F diagnosed with migraine disorder, occipital neuralgia, dysmenorrhea, celiac disease, endometriosis, dysautonomia, Grecia-Danlos, bipolar 1, OCD, PTSD, body dysmorphic disorder, mast cell activation disorder presented with headache, nausea status migrainosus mild improvement, now off depakote due to lack of improvement has had some relief with dilaudid, valium - starting to wean, will decrease another 50% tomorrow neuro appreciated - recommending outpatient CGRP inihibitor or botox continue iv hydration, changed tylenol to iv and added compazine IV as needed, tramadol, baclofen MRI brain negative, with no evidence of csf leak gerd ppi dysautonomia continue mestinon, toprol dvt prophylaxis - mechanical, early ambulation full code reason for continued hospitalization:not eating, pain control Quality Stroke Does the patient have a stroke diagnosis?: No Reason for No Anti-thrombotic by Day Two: Drug treatment not indicated VTE Prior VTE?: No VTE Risk Level:: Medical - low VTE Device Contraindication: Treatment Not Indicated VTE Drug Contraindication: Treatment Not Indicated
[2025-04-09] MEDS: BUPRENORPHINE HCL 900 MCG 900 EACH BUCCAL (10:43)
[2025-04-09] MEDS: Lactated Ringers 1,000 ML 50 ML IVCONT (12:37)
[2025-04-09 15:35] VITALS: BP 103/59; PULSE 52; RESP 12; TEMP 36.6; O2SAT 99
[2025-04-09] MEDS: NORGESTIMATE ETHINYL ESTRADIOL 1 EACH PO (17:25)
[2025-04-09 19:53] VITALS: BP 117/84; PULSE 81; RESP 16; TEMP 36.6; O2SAT 98
[2025-04-09 23:45] VITALS: BP 107/59; PULSE 61; RESP 18; TEMP 36.7; O2SAT 100
[2025-04-10] VITALS (8 sets, daily range): BP systolic 98–154; BP diastolic 54–77; PULSE 49–103; RESP 15–20; TEMP 36.1–37.1; O2SAT 95–100
[2025-04-10] MEDS: diazePAM 10 MG/2 ML CARTRIDGE 2.5 MG IVPUSH ×4 (00:36→22:03)
--- NOTE | 2025-04-10 08:19 | P.PNIM_ITS ---
Subjective Subjective Date of Service: 04/10/25 Interval History: reports baclofen helping a bit Physical Exam 2 Exam: Exam: General: AO X 3 Resp: CTA bilateral, no accessory muscles used CVS: S1,S2,RRR GI: soft, non tender, non distended Neuro: motor grossly intact, alert Vital Signs: Vital Signs: Last Vital Signs Temp 97.8 F 04/10/25 07:10 Pulse 60 04/10/25 07:10 Resp 16 04/10/25 07:10 BP 154/60 H 04/10/25 07:10 Pulse Ox 100 04/10/25 07:10 O2 Del Method Room Air 04/10/25 07:10 BMI result Body Mass Index 19.4 Objective Data Active Medications Albuterol Sulfate (Albuterol Sulfate 90 Mcg 8 Gm Inhaler) 2 puff INHALE Q4H PRN PRN Reason: Dyspnea Baclofen (Baclofen 10 Mg Tablet) 10 mg PO TID [facility] Last Admin: 04/09/25 20:45 Dose: 10 mg Documented By: JUAN Calcium Carbonate (Calcium Carbonate 750 Mg Tab.Chew) 750 mg PO Q4H PRN PRN Reason: Heartburn Diazepam (Diazepam 10 Mg/2 Ml Cartridge) 2.5 mg IVPUSH Q4H PRN PRN Reason: headache, anxiety, nausea Last Admin: 04/10/25 05:47 Dose: 2.5 mg Documented By: JUAN Hydromorphone HCl (Hydromorphone Hcl 1 Mg/Ml Syringe) 0.5 mg IVPUSH Q4H PRN; Protocol PRN Reason: Pain, Severe (Pain Scale 7-10) Last Admin: 04/10/25 05:47 Dose: 0.5 mg Documented By: JUAN Acetaminophen (Ofirmev) 1,000 mg in 100 mls @ 400 mls/hr IV Q6H PRN PRN Reason: severe pain Last Infusion: 04/08/25 23:45 Dose: Infused Documented By: JUAN Lactated Ringer's (Lr) 1,000 mls @ 50 mls/hr IVCONT .Q20H [facility] Last Infusion: 04/09/25 13:04 Dose: 50 mls/hr Documented By: FATMATA Magnesium Hydroxide (Milk Of Magnesia 30 Ml Oral.Susp) 30 ml PO DAILY PRN PRN Reason: Constipation Melatonin (Melatonin 3 Mg Tablet) 6 mg PO BEDTIME PRN PRN Reason: Insomnia Methenamine Hippurate (Methenamine Hippurate 1 Gm Tablet) 1 gm PO DAILY [facility] Last Admin: 04/09/25 09:01 Dose: 1 gm Documented By: FATMATA Metoprolol Succinate (Metoprolol Succinate Er 25 Mg Tab.Er.24h) 25 mg PO DAILY [facility]; Protocol Last Admin: 04/09/25 09:01 Dose: 25 mg Documented By: FATMATA Multivitamins/Vitamin C (Multivitamin Tablet) 1 tab PO DAILY [facility] Last Admin: 04/09/25 09:01 Dose: 1 tab Documented By: FATMATA Pt Own (Cromolyn 100 Mg/5 Ml Concentrate ) 200 mg PO QIDWMHS [facility] Last Admin: 04/09/25 20:45 Dose: 200 mg Documented By: JUAN Pt Own ( Buprenorphine Hcl [ Belbuca] 900 Mcg Film) 900 mcg BUCCAL BID@1000,2200 [facility] Last Admin: 04/09/25 20:47 Dose: Not Given Documented By: JUAN Non-Admin Reason: Patient Refused Pt Own (Norgestimate -Ethinyl Estradiol [ Sprintec (28)] 0.25- 35 Mg-Mcg Ta 1 tab PO DAILY@1800 [facility] Last Admin: 04/09/25 17:25 Dose: 1 tab Documented By: FATMATA Omeprazole (Omeprazole 20 Mg Capsule.Dr) 20 mg PO DAILY@0630 [facility] Last Admin: 04/10/25 05:39 Dose: 20 mg Documented By: JUAN Ondansetron HCl (Ondansetron Hcl 4 Mg/2 Ml Vial) 4 mg IVPUSH Q8H PRN PRN Reason: Nausea and Vomiting Last Admin: 04/09/25 15:25 Dose: 4 mg Documented By: FATMATA Prochlorperazine Edisylate (Prochlorperazine Edisylate 10 Mg/2 Ml Vial) 5 mg IVPUSH Q6H PRN PRN Reason: Nausea and Vomiting Last Admin: 04/09/25 23:44 Dose: 5 mg Documented By: JUAN Promethazine HCl (Promethazine Hcl 25 Mg Tablet) 25 mg PO Q4H PRN PRN Reason: N/V unrelieved by Jeffrey Last Admin: 04/08/25 02:52 Dose: 25 mg Documented By: ROBBIN Pyridostigmine [place] (Pyridostigmine [place] 60 Mg Tablet) 60 mg PO DAILY [facility] Last Admin: 04/09/25 09:20 Dose: 60 mg Documented By: FATMATA Pyridostigmine [place] (Pyridostigmine [place] 60 Mg Tablet) 30 mg PO DAILY@1800 [facility] Last Admin: 04/09/25 17:25 Dose: 30 mg Documented By: FATMATA Sodium Chloride (0.9 % Sodium Chloride Flush 3 Ml Syringe) 3 ml IVFLUSH QSHIFT [facility] Last Admin: 04/09/25 20:47 Dose: Not Given Documented By: JUAN Non-Admin Reason: IV Running Tramadol HCl (Tramadol Hcl 50 Mg Tablet) 25 mg PO Q6H PRN PRN Reason: Breakthrough Pain Last Admin: 04/09/25 23:44 Dose: 25 mg Documented By: JUAN Labs 04/09/25 05:48 04/09/25 05:48 Assessment and Plan (1) Status migrainosus: Status: Acute Plan 29yo F diagnosed with migraine disorder, occipital neuralgia, dysmenorrhea, celiac disease, endometriosis, dysautonomia, Grecia-Danlos, bipolar 1, OCD, PTSD, body dysmorphic disorder, mast cell activation disorder presented with headache, nausea status migrainosus mild improvement, now off depakote due to lack of improvement has had some relief with dilaudid, valium - starting to wean, reporting pain around 8 still, will keep same dose today neuro appreciated - recommending outpatient CGRP inihibitor or botox continue iv hydration, changed tylenol to iv and added compazine IV as needed, tramadol, baclofen MRI brain negative, with no evidence of csf leak gerd ppi dysautonomia continue mestinon, toprol dvt prophylaxis - mechanical, early ambulation full code reason for continued hospitalization:not eating, pain control Quality Stroke Does the patient have a stroke diagnosis?: No Reason for No Anti-thrombotic by Day Two: Drug treatment not indicated VTE Prior VTE?: No VTE Risk Level:: Medical - low VTE Device Contraindication: Treatment Not Indicated VTE Drug Contraindication: Treatment Not Indicated
[2025-04-10] MEDS: Lactated Ringers 1,000 ML 50 ML IVCONT (09:02)
[2025-04-10] MEDS: BUPRENORPHINE HCL 900 MCG 900 EACH BUCCAL (10:39)
[2025-04-10] MEDS: 0.9 % Sodium Chloride Flush 3 ML SYRINGE IVFLUSH ×2 (16:14→21:44)
[2025-04-10] MEDS: NORGESTIMATE ETHINYL ESTRADIOL 1 EACH PO (17:57)
[2025-04-11 03:57] VITALS: BP 107/61; PULSE 69; RESP 18; TEMP 36; O2SAT 100
[2025-04-11] MEDS: Lactated Ringers 1,000 ML 50 ML IVCONT (05:32)
[2025-04-11 07:59] VITALS: BP 107/62; PULSE 72; RESP 18; TEMP 36.3; O2SAT 100
[2025-04-11] MEDS: Metoprolol Succinate ER 25 MG TAB.ER.24H PO (08:46)
--- NOTE | 2025-04-11 09:37 | HO.PM.IMPN ---
Subjective Subjective Date of Service: 04/11/25 Interval History: worsening frontal headche Physical Exam Exam: Exam: General: AO X 3 Resp: CTA bilateral, no accessory muscles used CVS: S1,S2,RRR GI: soft, non tender, non distended Neuro: motor grossly intact, alert Vital Signs: Vital Signs: Last Vital Signs Temp 97.3 F 04/11/25 07:59 Pulse 72 04/11/25 07:59 Resp 18 04/11/25 07:59 BP 107/62 04/11/25 07:59 Pulse Ox 100 04/11/25 07:59 O2 Del Method Room Air 04/11/25 07:59 BMI result Body Mass Index 19.4 Objective Data Active Medications Albuterol Sulfate (Albuterol Sulfate 90 Mcg 8 Gm Inhaler) 2 puff INHALE Q4H PRN PRN Reason: Dyspnea Baclofen (Baclofen 10 Mg Tablet) 10 mg PO TID [facility] Last Admin: 04/11/25 08:46 Dose: 10 mg Documented By: FATMATA Calcium Carbonate (Calcium Carbonate 750 Mg Tab.Chew) 750 mg PO Q4H PRN PRN Reason: Heartburn Diazepam (Diazepam 10 Mg/2 Ml Cartridge) 2.5 mg IVPUSH Q4H PRN PRN Reason: headache, anxiety, nausea Last Admin: 04/10/25 22:03 Dose: 2.5 mg Documented By: LYNDSEY Hydromorphone HCl (Hydromorphone Hcl 1 Mg/Ml Syringe) 0.5 mg IVPUSH Q4H PRN; Protocol PRN Reason: Pain, Severe (Pain Scale 7-10) Last Admin: 04/10/25 21:43 Dose: 0.5 mg Documented By: LYNDSEY Acetaminophen (Ofirmev) 1,000 mg in 100 mls @ 400 mls/hr IV Q6H PRN PRN Reason: severe pain Last Infusion: 04/11/25 03:14 Dose: Infused Documented By: LYNDSEY Lactated Ringer's (Lr) 1,000 mls @ 50 mls/hr IVCONT .Q20H [facility] Last Admin: 04/11/25 05:32 Dose: 50 mls/hr Documented By: LYNDSEY Magnesium Hydroxide (Milk Of Magnesia 30 Ml Oral.Susp) 30 ml PO DAILY PRN PRN Reason: Constipation Melatonin (Melatonin 3 Mg Tablet) 6 mg PO BEDTIME PRN PRN Reason: Insomnia Methenamine Hippurate (Methenamine Hippurate 1 Gm Tablet) 1 gm PO DAILY [facility] Last Admin: 04/11/25 08:46 Dose: 1 gm Documented By: FATMATA Metoprolol Succinate (Metoprolol Succinate Er 25 Mg Tab.Er.24h) 25 mg PO DAILY [facility]; Protocol Last Admin: 04/11/25 08:46 Dose: 25 mg Documented By: FATMATA Multivitamins/Vitamin C (Multivitamin Tablet) 1 tab PO DAILY [facility] Last Admin: 04/11/25 08:46 Dose: 1 tab Documented By: FATMATA Pt Own (Cromolyn 100 Mg/5 Ml Concentrate ) 200 mg PO QIDWMHS [facility] Last Admin: 04/11/25 08:46 Dose: 200 mg Documented By: FATMATA Pt Own ( Buprenorphine Hcl [ Belbuca] 900 Mcg Film) 900 mcg BUCCAL BID@1000,2200 [facility] Last Admin: 04/10/25 22:09 Dose: Not Given Documented By: LYNDSEY Non-Admin Reason: Patient Refused Pt Own (Norgestimate -Ethinyl Estradiol [ Sprintec (28)] 0.25- 35 Mg-Mcg Ta 1 tab PO DAILY@1800 [facility] Last Admin: 04/10/25 17:57 Dose: 1 tab Documented By: FATMATA Omeprazole (Omeprazole 20 Mg Capsule.Dr) 20 mg PO DAILY@0630 [facility] Last Admin: 04/11/25 05:32 Dose: 20 mg Documented By: LYNDSEY Ondansetron HCl (Ondansetron Hcl 4 Mg/2 Ml Vial) 4 mg IVPUSH Q8H PRN PRN Reason: Nausea and Vomiting Last Admin: 04/11/25 05:58 Dose: 4 mg Documented By: LYNDSEY Prochlorperazine Edisylate (Prochlorperazine Edisylate 10 Mg/2 Ml Vial) 5 mg IVPUSH Q6H PRN PRN Reason: Nausea and Vomiting Last Admin: 04/11/25 08:46 Dose: 5 mg Documented By: FATMATA Promethazine HCl (Promethazine Hcl 25 Mg Tablet) 25 mg PO Q4H PRN PRN Reason: N/V unrelieved by Jeffrey Last Admin: 04/08/25 02:52 Dose: 25 mg Documented By: ROBBIN Pyridostigmine [place] (Pyridostigmine [place] 60 Mg Tablet) 60 mg PO DAILY [facility] Last Admin: 04/11/25 08:46 Dose: 60 mg Documented By: FATMATA Pyridostigmine [place] (Pyridostigmine [place] 60 Mg Tablet) 30 mg PO DAILY@1800 [facility] Last Admin: 04/10/25 17:58 Dose: 30 mg Documented By: FATMATA Sodium Chloride (0.9 % Sodium Chloride Flush 3 Ml Syringe) 3 ml IVFLUSH QSHIFT [facility] Last Admin: 04/11/25 07:07 Dose: Not Given Documented By: FATMATA Non-Admin Reason: IV Running Tramadol HCl (Tramadol Hcl 50 Mg Tablet) 25 mg PO Q6H PRN PRN Reason: Breakthrough Pain Last Admin: 04/11/25 05:58 Dose: 25 mg Documented By: LYNDSEY Labs 04/09/25 05:48 04/09/25 05:48 Assessment and Plan (1) Status migrainosus: Status: Acute Plan 29yo F diagnosed with migraine disorder, occipital neuralgia, dysmenorrhea, celiac disease, endometriosis, dysautonomia, Grecia-Danlos, bipolar 1, OCD, PTSD, body dysmorphic disorder, mast cell activation disorder presented with headache, nausea status migrainosus mild improvement, now off depakote due to lack of improvement has had some relief with dilaudid, valium - weaned to half dosing, but needing breakthrough doses neuro appreciated - recommending outpatient CGRP inihibitor or botox continue iv hydration, changed tylenol to iv and added compazine IV as needed, tramadol, baclofen MRI brain negative, with no evidence of csf leak gerd ppi dysautonomia continue mestinon, toprol dvt prophylaxis - mechanical, early ambulation full code reason for continued hospitalization:not eating, pain control Quality Stroke Does the patient have a stroke diagnosis?: No Reason for No Anti-thrombotic by Day Two: Drug treatment not indicated VTE Prior VTE?: No VTE Risk Level:: Medical - low VTE Device Contraindication: Treatment Not Indicated VTE Drug Contraindication: Treatment Not Indicated
--- NOTE | 2025-04-11 11:03 | MHC.CM.PN ---
PER MD ROUNDS, PT NOT MEDICALLY CLEARED, NOT EATING AND STILL NEEDING IV PAIN MEDS DCP HOME NO SERVICES VIA PRIVATE TRANSPORT
[2025-04-11] MEDS: diazePAM 10 MG/2 ML CARTRIDGE 2.5 MG IVPUSH ×3 (11:11→21:31)
--- NOTE | 2025-04-11 11:19 | MHC.CLN ---
NUTRITION DIET=GLUTEN FREE. SUPPLEMENT ENSURE CLEAR TID PROVIDES 720 KCALS, 24 G PROTEIN. PO INTAKE VARIABLE, 0-50%. DIET AND SUPPLEMENT APPROPRIATE. ENCOURAGE PO INTAKE ABLE.
[2025-04-11 11:31] VITALS: BP 100/59; PULSE 55; RESP 16; TEMP 36.4; O2SAT 98
[2025-04-11] MEDS: BUPRENORPHINE HCL 900 MCG 900 EACH BUCCAL ×2 (12:11→21:24)
[2025-04-11 15:18] VITALS: BP 107/62; PULSE 54; RESP 17; TEMP 36.1; O2SAT 97
[2025-04-11] MEDS: NORGESTIMATE ETHINYL ESTRADIOL 1 EACH PO (17:55)
[2025-04-11 19:39] VITALS: BP 112/75; PULSE 59; RESP 18; TEMP 36.2; O2SAT 97
[2025-04-11] MEDS: 0.9 % Sodium Chloride Flush 3 ML SYRINGE IVFLUSH (21:11)
[2025-04-11 23:29] VITALS: BP 103/57; PULSE 55; RESP 16; TEMP 36; O2SAT 96
[2025-04-12] MEDS: Lactated Ringers 1,000 ML 50 ML IVCONT ×2 (02:53→21:29)
[2025-04-12] MEDS: diazePAM 10 MG/2 ML CARTRIDGE 2.5 MG IVPUSH ×5 (02:53→22:13)
[2025-04-12 03:06] VITALS: BP 117/74; PULSE 54; RESP 16; TEMP 36; O2SAT 97
[2025-04-12 07:44] VITALS: BP 100/54; PULSE 69; RESP 14; TEMP 36.5; O2SAT 98
[2025-04-12] MEDS: Metoprolol Succinate ER 25 MG TAB.ER.24H PO (08:49)
[2025-04-12] MEDS: 0.9 % Sodium Chloride Flush 3 ML SYRINGE IVFLUSH (08:50)
--- NOTE | 2025-04-12 09:33 | PC.NURSE ---
Pt offered another MD earlier in the week, pt refused, pt now requesting another MD, will get a different provider tomorrow, UD notified. Pt Advocate to speak with family.
--- NOTE | 2025-04-12 09:54 | P.PNIM_ITS ---
Subjective Subjective Date of Service: 04/12/25 Interval History: still with frontal and occiptal headach and inability to tolerate po Physical Exam 2 Exam: Exam: General: AO X 3 Resp: CTA bilateral, no accessory muscles used CVS: S1,S2,RRR GI: soft, non tender, non distended Neuro: motor grossly intact, alert Vital Signs: Vital Signs: Last Vital Signs Temp 97.7 F 04/12/25 07:44 Pulse 69 04/12/25 07:44 Resp 14 04/12/25 07:44 BP 100/54 L 04/12/25 07:44 Pulse Ox 98 04/12/25 07:44 O2 Del Method Room Air 04/12/25 07:44 BMI result Body Mass Index 19.4 Objective Data Active Medications Albuterol Sulfate (Albuterol Sulfate 90 Mcg 8 Gm Inhaler) 2 puff INHALE Q4H PRN PRN Reason: Dyspnea Baclofen (Baclofen 10 Mg Tablet) 10 mg PO TID [facility] Last Admin: 04/12/25 08:49 Dose: 10 mg Documented By: HORACIO Calcium Carbonate (Calcium Carbonate 750 Mg Tab.Chew) 750 mg PO Q4H PRN PRN Reason: Heartburn Diazepam (Diazepam 10 Mg/2 Ml Cartridge) 2.5 mg IVPUSH Q4H PRN PRN Reason: headache, anxiety, nausea Last Admin: 04/12/25 08:49 Dose: 2.5 mg Documented By: HORACIO Hydromorphone HCl (Hydromorphone Hcl 1 Mg/Ml Syringe) 0.5 mg IVPUSH Q4H PRN; Protocol PRN Reason: Pain, Severe (Pain Scale 7-10) Last Admin: 04/12/25 09:06 Dose: 0.5 mg Documented By: HORACIO Acetaminophen (Ofirmev) 1,000 mg in 100 mls @ 400 mls/hr IV Q6H PRN PRN Reason: severe pain Last Infusion: 04/12/25 04:06 Dose: Infused Documented By: LYNDSEY Lactated Ringer's (Lr) 1,000 mls @ 50 mls/hr IVCONT .Q20H [facility] Last Admin: 04/12/25 02:53 Dose: 50 mls/hr Documented By: LYNDSEY Magnesium Hydroxide (Milk Of Magnesia 30 Ml Oral.Susp) 30 ml PO DAILY PRN PRN Reason: Constipation Melatonin (Melatonin 3 Mg Tablet) 6 mg PO BEDTIME PRN PRN Reason: Insomnia Last Admin: 04/11/25 22:09 Dose: 6 mg Documented By: LYNDSEY Methenamine Hippurate (Methenamine Hippurate 1 Gm Tablet) 1 gm PO DAILY [facility] Last Admin: 04/12/25 08:49 Dose: 1 gm Documented By: HORACIO Metoprolol Succinate (Metoprolol Succinate Er 25 Mg Tab.Er.24h) 25 mg PO DAILY [facility]; Protocol Last Admin: 04/12/25 08:49 Dose: 25 mg Documented By: HORACIO Multivitamins/Vitamin C (Multivitamin Tablet) 1 tab PO DAILY [facility] Last Admin: 04/12/25 08:49 Dose: 1 tab Documented By: HORACIO Pt Own (Cromolyn 100 Mg/5 Ml Concentrate ) 200 mg PO QIDWMHS [facility] Last Admin: 04/12/25 09:07 Dose: 200 mg Documented By: HORACIO Pt Own ( Buprenorphine Hcl [ Belbuca] 900 Mcg Film) 900 mcg BUCCAL BID@1000,2200 [facility] Last Admin: 04/11/25 21:24 Dose: 900 mcg Documented By: LYNDSEY Pt Own (Norgestimate -Ethinyl Estradiol [ Sprintec (28)] 0.25- 35 Mg-Mcg Ta 1 tab PO DAILY@1800 [facility] Last Admin: 04/11/25 17:55 Dose: 1 tab Documented By: FATMATA Omeprazole (Omeprazole 20 Mg Capsule.Dr) 20 mg PO DAILY@0630 [facility] Last Admin: 04/12/25 06:21 Dose: 20 mg Documented By: LYNDSEY Ondansetron HCl (Ondansetron Hcl 4 Mg/2 Ml Vial) 4 mg IVPUSH Q8H PRN PRN Reason: Nausea and Vomiting Last Admin: 04/11/25 05:58 Dose: 4 mg Documented By: LYNDSEY Prochlorperazine Edisylate (Prochlorperazine Edisylate 10 Mg/2 Ml Vial) 5 mg IVPUSH Q6H PRN PRN Reason: Nausea and Vomiting Last Admin: 04/12/25 03:47 Dose: 5 mg Documented By: LYNDSEY Promethazine HCl (Promethazine Hcl 25 Mg Tablet) 25 mg PO Q4H PRN PRN Reason: N/V unrelieved by Jeffrey Last Admin: 04/08/25 02:52 Dose: 25 mg Documented By: ROBBIN Pyridostigmine [place] (Pyridostigmine [place] 60 Mg Tablet) 60 mg PO DAILY [facility] Last Admin: 04/12/25 08:49 Dose: 60 mg Documented By: HORACIO Pyridostigmine [place] (Pyridostigmine [place] 60 Mg Tablet) 30 mg PO DAILY@1800 [facility] Last Admin: 04/11/25 17:54 Dose: 30 mg Documented By: FATMATA Sodium Chloride (0.9 % Sodium Chloride Flush 3 Ml Syringe) 3 ml IVFLUSH QSHIFT [facility] Last Admin: 04/12/25 08:50 Dose: 3 ml Documented By: HORACIO Tramadol HCl (Tramadol Hcl 50 Mg Tablet) 25 mg PO Q6H PRN PRN Reason: Breakthrough Pain Last Admin: 04/12/25 04:23 Dose: 25 mg Documented By: LYNDSEY Labs 04/09/25 05:48 04/09/25 05:48 Assessment and Plan (1) Status migrainosus: Status: Acute Plan 29yo F diagnosed with migraine disorder, occipital neuralgia, dysmenorrhea, celiac disease, endometriosis, dysautonomia, Grecia-Danlos, bipolar 1, OCD, PTSD, body dysmorphic disorder, mast cell activation disorder presented with headache, nausea status migrainosus off depakote due to lack of improvement has had some relief with dilaudid, valium - weaned to half dosing, but needing breakthrough doses, concern for developing chemical dependence but patient hesitant to decrease dose further neuro appreciated - recommending outpatient CGRP inihibitor or botox, patient requesting follow up continue iv hydration, tylenol iv, compazine IV as needed, tramadol, baclofen MRI brain negative, with no evidence of csf leak gerd ppi dysautonomia continue mestinon, toprol dvt prophylaxis - mechanical, early ambulation full code reason for continued hospitalization:not eating, pain control Quality Stroke Does the patient have a stroke diagnosis?: No Reason for No Anti-thrombotic by Day Two: Drug treatment not indicated VTE Prior VTE?: No VTE Risk Level:: Medical - low VTE Device Contraindication: Treatment Not Indicated VTE Drug Contraindication: Treatment Not Indicated
[2025-04-12] MEDS: BUPRENORPHINE HCL 900 MCG 900 EACH BUCCAL ×2 (09:58→21:29)
--- NOTE | 2025-04-12 10:32 | MHC.CM.PN ---
Per MD rounds patient not medically cleared for dc. CM will continue to follow.
[2025-04-12 11:34] VITALS: BP 94/54; PULSE 54; RESP 14; TEMP 36.2; O2SAT 98
[2025-04-12 15:15] VITALS: BP 102/57; PULSE 57; RESP 18; TEMP 36.1; O2SAT 97
[2025-04-12] MEDS: NORGESTIMATE ETHINYL ESTRADIOL 1 EACH PO (18:01)
[2025-04-12 19:30] VITALS: BP 111/73; PULSE 67; RESP 16; TEMP 36.2; O2SAT 97
[2025-04-12 23:15] VITALS: BP 119/70; PULSE 53; RESP 16; TEMP 36.8; O2SAT 98
[2025-04-13] VITALS (10 sets, daily range): BP systolic 94–114; BP diastolic 51–69; PULSE 50–63; RESP 12–18; TEMP 36–36.9; O2SAT 96–98
[2025-04-13] MEDS: diazePAM 10 MG/2 ML CARTRIDGE 2.5 MG IVPUSH ×5 (03:53→22:03)
[2025-04-13] MEDS: 0.9 % Sodium Chloride Flush 3 ML SYRINGE IVFLUSH ×2 (09:14→17:51)
[2025-04-13] MEDS: BUPRENORPHINE HCL 900 MCG 900 EACH BUCCAL ×2 (11:05→21:15)
--- NOTE | 2025-04-13 13:13 | MHC.CM.PN ---
Patient not medically cleared for dc. CM will continue to follow.
--- NOTE | 2025-04-13 14:21 | P.PNIM_ITS ---
Subjective Subjective Date of Service: 04/13/25 Interval History: headaches similar ,says slight improvement. Review of Systems Review of Systems: Yes all other systems are reviewed and are negative Physical Exam 2 Exam: Exam: General: AO X 3 Resp: CTA bilateral, no accessory muscles used CVS: S1,S2,RRR GI: soft, non tender, non distended Neuro: motor grossly intact, alert Vital Signs: Vital Signs: Last Vital Signs Temp 97.0 F 04/13/25 11:26 Pulse 63 04/13/25 13:24 Resp 16 04/13/25 13:24 BP 114/69 04/13/25 13:24 Pulse Ox 98 04/13/25 11:26 O2 Del Method Room Air 04/13/25 11:26 BMI result Body Mass Index 19.4 Objective Data Active Medications Albuterol Sulfate (Albuterol Sulfate 90 Mcg 8 Gm Inhaler) 2 puff INHALE Q4H PRN PRN Reason: Dyspnea Baclofen (Baclofen 10 Mg Tablet) 10 mg PO TID [facility] Last Admin: 04/13/25 09:12 Dose: 10 mg Documented By: MICHAEL Calcium Carbonate (Calcium Carbonate 750 Mg Tab.Chew) 750 mg PO Q4H PRN PRN Reason: Heartburn Last Admin: 04/12/25 23:45 Dose: 750 mg Documented By: YOVANY Diazepam (Diazepam 10 Mg/2 Ml Cartridge) 2.5 mg IVPUSH Q4H PRN PRN Reason: headache, anxiety, nausea Last Admin: 04/13/25 13:24 Dose: 2.5 mg Documented By: MICHAEL Hydromorphone HCl (Hydromorphone Hcl 1 Mg/Ml Syringe) 0.5 mg IVPUSH Q4H PRN; Protocol PRN Reason: Pain, Severe (Pain Scale 7-10) Last Admin: 04/13/25 13:25 Dose: 0.5 mg Documented By: MICHAEL Acetaminophen (Ofirmev) 1,000 mg in 100 mls @ 400 mls/hr IV Q6H PRN PRN Reason: severe pain Last Infusion: 04/12/25 04:06 Dose: Infused Documented By: LYNDSEY Lactated Ringer's (Lr) 1,000 mls @ 50 mls/hr IVCONT .Q20H [facility] Last Admin: 04/12/25 21:29 Dose: 50 mls/hr Documented By: YOVANY Magnesium Hydroxide (Milk Of Magnesia 30 Ml Oral.Susp) 30 ml PO DAILY PRN PRN Reason: Constipation Melatonin (Melatonin 3 Mg Tablet) 6 mg PO BEDTIME PRN PRN Reason: Insomnia Last Admin: 04/11/25 22:09 Dose: 6 mg Documented By: LYNDSEY Metoprolol Succinate (Metoprolol Succinate Er 25 Mg Tab.Er.24h) 25 mg PO DAILY [facility]; Protocol Last Admin: 04/13/25 09:30 Dose: Not Given Documented By: MICHAEL Non-Admin Reason: Decreased Heart Rate Multivitamins/Vitamin C (Multivitamin Tablet) 1 tab PO DAILY [facility] Last Admin: 04/13/25 09:12 Dose: 1 tab Documented By: MICHAEL Pt Own (Cromolyn 100 Mg/5 Ml Concentrate ) 200 mg PO QIDWMHS [facility] Last Admin: 04/13/25 12:50 Dose: 200 mg Documented By: MICHAEL Pt Own ( Buprenorphine Hcl [ Belbuca] 900 Mcg Film) 900 mcg BUCCAL BID@1000,2200 [facility] Last Admin: 04/13/25 11:05 Dose: 900 mcg Documented By: MICHAEL Pt Own (Norgestimate -Ethinyl Estradiol [ Sprintec (28)] 0.25- 35 Mg-Mcg Ta 1 tab PO DAILY@1800 [facility] Last Admin: 04/12/25 18:01 Dose: 1 tab Documented By: HORACIO Omeprazole (Omeprazole 20 Mg Capsule.) 20 mg PO DAILY@0630 [facility] Last Admin: 04/13/25 06:28 Dose: 20 mg Documented By: YOVANY Ondansetron HCl (Ondansetron Hcl 4 Mg/2 Ml Vial) 4 mg IVPUSH Q8H PRN PRN Reason: Nausea and Vomiting Last Admin: 04/13/25 12:50 Dose: 4 mg Documented By: MICHAEL Prochlorperazine Edisylate (Prochlorperazine Edisylate 10 Mg/2 Ml Vial) 5 mg IVPUSH Q6H PRN PRN Reason: Nausea and Vomiting Last Admin: 04/12/25 03:47 Dose: 5 mg Documented By: LYNDSEY Promethazine HCl (Promethazine Hcl 25 Mg Tablet) 25 mg PO Q4H PRN PRN Reason: N/V unrelieved by Jeffrey Last Admin: 04/13/25 09:12 Dose: 25 mg Documented By: MICHAEL Pyridostigmine [place] (Pyridostigmine [place] 60 Mg Tablet) 60 mg PO DAILY [facility] Last Admin: 04/13/25 09:12 Dose: 60 mg Documented By: MICHAEL Pyridostigmine [place] (Pyridostigmine [place] 60 Mg Tablet) 30 mg PO DAILY@1800 [facility] Last Admin: 04/12/25 18:01 Dose: 30 mg Documented By: LUCKAILASH Sodium Chloride (0.9 % Sodium Chloride Flush 3 Ml Syringe) 3 ml IVFLUSH QSHIFT [facility] Last Admin: 04/13/25 09:14 Dose: 3 ml Documented By: MICHAEL Tramadol HCl (Tramadol Hcl 50 Mg Tablet) 25 mg PO Q6H PRN PRN Reason: Breakthrough Pain Last Admin: 04/12/25 04:23 Dose: 25 mg Documented By: LYNDSEY Labs 04/09/25 05:48 04/09/25 05:48 Assessment and Plan (1) Status migrainosus: Status: Acute Plan 29yo F diagnosed with migraine disorder, occipital neuralgia, dysmenorrhea, celiac disease, endometriosis, dysautonomia, Grecia-Danlos, bipolar 1, OCD, PTSD, body dysmorphic disorder, mast cell activation disorder presented with headache, nausea status migrainosus off depakote due to lack of improvement has had some relief with dilaudid, valium - weaned to half dosing, but needing breakthrough doses, concern for developing chemical dependence but patient hesitant to decrease dose further neuro appreciated - recommending outpatient CGRP inihibitor or botox, patient requesting follow up continue iv hydration, tylenol iv, compazine IV as needed, tramadol, baclofen MRI brain negative, with no evidence of csf leak patient was reevaluated by neurology today: MRI of brain with and without contrast did not reveal any significant abnormality. Laboratory so far okay. She continues to complain of severe headache saying that the only medicine that work was Dilaudid an even that only touched her headache. Impression: Young woman with complex neuropsychiatric history, opiate dependent for pain management, now complaining of severe continuous headache and requesting treatment with Dilaudid. Her workup including MRI of brain with and without contrast and sed rate have been normal. Her underlying history of use of opiates and psychological/psychiatric disease likely contributed to her situation. Headache is likely migraine type which is there even when she is flat on her back. She also complains of photophobia, which is a common association. Recommendations: 1. Pain management consultation to find a reasonable way out. We do not recommend long-term habit-forming medicines for migraine headache management. I discussed with her possibility of treatment with Botox or with CGRP inhibitors. Botox might be a reasonable choice for her but she said that she was concerned about its possible complications. In any case it could not be done in inpatient setting. 2. A psychiatric consultation might also help to at least streamline her outpatient behavioral therapies and treatment. It can also help to diagnose any contributing psychiatric disease. 3. If not done before, serum Lyme serology, HIV test, test for babesiosis, CATRACHO, rheumatoid factor 4. She should make an appointment with her neurologist in [place] where she already was being investigated to rule out any possibility of rare neurological disease, which could explain her overall situation. 5. Outpatient massaged/physical therapy can also provide help. Similarly, some patients feel better with acupuncture. gerd ppi dysautonomia continue mestinon, toprol dvt prophylaxis - mechanical, early ambulation full code reason for continued hospitalization:not eating, pain control Quality Stroke Does the patient have a stroke diagnosis?: No Reason for No Anti-thrombotic by Day Two: Drug treatment not indicated VTE Prior VTE?: No VTE Risk Level:: Medical - low VTE Device Contraindication: Treatment Not Indicated VTE Drug Contraindication: Treatment Not Indicated
[2025-04-13] MEDS: Lactated Ringers 1,000 ML 50 ML IVCONT (16:05)
[2025-04-13] MEDS: NORGESTIMATE ETHINYL ESTRADIOL 1 EACH PO (17:50)
[2025-04-14] MEDS: diazePAM 10 MG/2 ML CARTRIDGE 2.5 MG IVPUSH ×2 (02:42→12:06)
[2025-04-14 03:10] VITALS: BP 103/63; PULSE 56; RESP 18; TEMP 36; O2SAT 99
[2025-04-14 08:00] VITALS: BP 105/68; PULSE 62; RESP 16; TEMP 36.8; O2SAT 100
[2025-04-14 08:09] LABS: HIV Num 1 0.05 S/CO (0.00-0.99)
[2025-04-14] MEDS: Metoprolol Succinate ER 25 MG TAB.ER.24H PO (08:23)
[2025-04-14] MEDS: 0.9 % Sodium Chloride Flush 3 ML SYRINGE IVFLUSH (08:24)
[2025-04-14] MEDS: BUPRENORPHINE HCL 900 MCG 900 EACH BUCCAL (09:42)
[2025-04-14] MEDS: Lactated Ringers 1,000 ML 50 ML IVCONT (10:14)
--- NOTE | 2025-04-14 11:43 | MHC.CM.PN ---
Addendum entered by Gabrielle Ham RN 04/14/25 15:56: Cleared for dc home self care. Original Note: Per MD - likely to be cleared for dc today. CM met with patient to discuss. Plan is home self care via private transport. IMM delivered.
[2025-04-14 12:00] VITALS: BP 98/58; PULSE 53; RESP 16; TEMP 37.1; O2SAT 97
--- NOTE | 2025-04-14 15:48 | PM.DS ---
DS: Providers Provider Date of Service: 04/14/25 Date of admission: 04/04/25 11:23 Date of discharge: 04/14/25 Primary care physician: Arminda Hector MD Consults: 04/01/25 05:58 Consult to Neurology Routine Consulting Provider: Neurology Bernie corona [facility] Reason for consultation: migraine, occipital neuralgia, symptoms X5d Has provider been notified: No 04/13/25 09:48 Consult to Neurology Routine Consulting Provider: [facility] Reason for consultation: Persistent headaches-question migraine Has provider been notified: No Attending physician on discharge: Surinder Barker Discharging clinician: Surinder Barker DS: Diagnosis Discharge Diagnosis (1) Status migrainosus: Status: Acute DS: Summary Hospital Course Hospital Course: HPI:29-year-old female with past medical history of migraine, occipital neuralgia, muscle spasm, celiac disease, dysmenorrhea on control, endometriosis, GERD, 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 Patient also reporting changes with vision including double exposure and floating dots. Pt denies any loss of vision. Pt did see her PCP yesterday and she was instructed to be seen in ED if symptoms worsened. Patient did try to reach her autonomic neurologist in [place] but they did not get better so she decided to come to the ED for evaluation. Patient has been taking her usual medications and applying ice and then heat but has had no relief. Patient did undergo CT of the head which showed no evidence of acute infarct or intraparenchymal hemorrhage. Incidentally radiologist states mild decreased attenuation within the white matter of the bilateral occipital lobes which is considered nonspecific but raises the question of posterior reversible encephalopathy syndrome (PRES). Patient being admitted for further evaluation by Neurology. Unclear if MRI will be indicated. Pt did receive dilaudid in the ED and notes that the 0.5 mg was somewhat helpful but 1 mg dose was much more effective. Pt does take morphine at home and denies issues with narcotics, including dependence. Pt is on control and this has been recently adjusted to help with known endometriosis. Pt does not smoke and test today is negative. Pt states her mental health issues are stable and she is not having SI, HI but is currently seeking a new provider as her current therapist is out on medical leave. Hospital course: 29yo F diagnosed with migraine disorder, occipital neuralgia, dysmenorrhea, celiac disease, endometriosis, dysautonomia, Grecia-Danlos, bipolar 1, OCD, PTSD, body dysmorphic disorder, mast cell activation disorder presented with headache, nausea status migrainosus off depakote due to lack of improvement. continue iv hydration, tylenol iv, compazine IV as needed, tramadol, baclofen,MRI brain negative, had some relief with dilaudid, valium - weaned to half dosing, but needing breakthrough doses, concern for developing chemical dependence but patient hesitant to decrease dose further seen by neurology:MRI of brain with and without contrast did not reveal any significant abnormality. Laboratory so far okay. She continues to complain of severe headache saying that the only medicine that work was Dilaudid an even that only touched her headache. Impression: Young woman with complex neuropsychiatric history, opiate dependent for pain management, now complaining of severe continuous headache and requesting treatment with Dilaudid. Her workup including MRI of brain with and without contrast and sed rate have been normal. Her underlying history of use of opiates and psychological/psychiatric disease likely contributed to her situation. Headache is likely migraine type which is there even when she is flat on her back. She also complains of photophobia, which is a common association. neuro plan:do not recommend long-term habit-forming medicines for migraine headache management and discussed with her possibility of treatment with Botox or with CGRP inhibitors. hiv test non reactive ,RF normal, further serum Lyme serology, tick-borne disease resting, CATRACHO pending neuro also suggested appointment with her neurologist in [place] where she already was being investigated to rule out any possibility of rare neurological disease, which could explain her overall situation as well as Outpatient massaged/physical therapy can also provide help. Similarly, some patients feel better with acupuncture. We offered for her direct transfer to [place] since she says not improving much but she declined and instead want to go on her own ,decided for leaving [place] -her management/risks discussed with her in detail length-she understands but still wants to go. All question answered, staff was present during conversation. Total time spent 50 minute. plan: Patient was thought to have status migrainosus-patient was initially given Depakote but stopped due to lack of improvement, subsequently patient was given IV Dilaudid and Valium which gave some relief.Patient seen by Neurology:discussed with her possibility of treatment with Botox or with CGRP inhibitors outpatient.patient should make an appointment with her neurologist in [place] where she already was being investigated to rule out any possibility of rare neurological disease, which could explain her overall situation. serum Lyme serology, tick borne disease testing , CATRACHO pending patient requested baclofen/zofran few days supply given per request. She says that she has morphine at home as per her pain management. Outpatient massage/physical therapy and pain management followup suggested . Similarly, some patients feel better with acupuncture. also consider outpatient psych provider follow up. In addition we also placed a call for Dr. Galileo Rodriguez-office(patient has autonomous neurology provider in in [place])-if they can provide quick appointment. Assessment and plan coordination time spent 50 minute. Time Attestation Total time managing care of this patient today: 50 mintues. Discharge Coordination Time (in mins): 50 min Quality: Safe Use of Opioids Does Pt have an Active Cancer Diagnosis on the Problem List?: No Quality: Stroke Does the patient have a stroke diagnosis?: No Physical Exam Vital Signs: Vital Signs: Last Vital Signs Temp 98.8 F 04/14/25 12:00 Pulse 53 04/14/25 12:00 Resp 16 04/14/25 12:00 BP 98/58 L 04/14/25 12:00 Pulse Ox 97 04/14/25 12:00 O2 Del Method Room Air 04/14/25 12:00 BMI result Body Mass Index 19.4 General: AO X 3 Resp: CTA bilateral, no accessory muscles used CVS: S1,S2,RRR GI: soft, non tender, non distended Neuro: motor grossly intact, alert DS: Data Data Completed and Pending Labs on day of discharge: Laboratory Results - last 24 hr 04/13/25 14:10 HIV 1&2 Ab/P24 Ag 4thGn Nonreactive Imaging Chest x-ray: Radiologist's impression: ITS Impressions Brain MRI 04/06/25 14:15 IMPRESSION: No enhancing lesion/mass. Spontaneous Intracranial hypotension cannot be excluded. Discharge Plan Discharge Anticipated Discharge Date/Time: 04/14/25 15:09 Patient Disposition: Left Against Medical Advice Discharge Diagnosis: status migrainosus Referrals: Arminda Hector MD [Primary Care Provider, Internal Medicine] - 1 Week Discharge Medications: New baclofen 10 mg Tablet 10 mg PO TID PRN (Reason: Cramps) Qty: 15 0RF ondansetron 4 mg tablet,disintegrating 4 mg PO Q8H PRN (Reason: nausea and vomiting) Qty: 14 0RF Continued omeprazole 40 mg capsule,delayed release(DR/EC) 40 mg PO DAILY@0630 methenamine hippurate 1 gram tablet 1 g PO DAILY metoprolol succinate 25 mg tablet extended release 24 hr 25 mg PO DAILY albuterol sulfate 90 mcg/actuation HFA aerosol inhaler 2 puff INHALATION Q4H PRN (Reason: dyspnea) buprenorphine HCl [Belbuca] 900 mcg film 900 mcg BUCCAL Q12H pyridostigmine bromide 60 mg tablet 60 mg PO DAILY Probiotic 10 billion cell Capsule 10,000 mmu cells PO DAILY pyridostigmine bromide 60 mg tablet 30 mg PO BEDTIME norgestimate-ethinyl estradiol [Sprintec (28)] 0.25-35 mg-mcg tablet 1 tab PO DAILY epinephrine 0.3 mg/0.3 mL auto-injector 0.3 mg IM Q10M PRN (Reason: Allergic Reaction) Rx Instructions: for 2 doses cromolyn 100 mg/5 mL concentrate 200 mg PO QIDWMHS multivitamin Tablet 1 tab PO DAILY Discharge Orders: Discharge Order (Routine); Ordered 04/14/25 Ordered By: Surinder Barker Diet: Advance to usual diet Activity on Discharge: As tolerated Stand Alone Forms: Patient Portal Discharge page Print Language: Turkmen Care Plan Goals: See below. Health Concerns: See below Plan of Treatment: Patient was thought to have status migrainosus-patient was initially given Depakote but stopped due to lack of improvement, subsequently patient was given IV Dilaudid and Valium which gave some relief.Patient seen by Neurology:discussed with her possibility of treatment with Botox or with CGRP inhibitors outpatient.patient should make an appointment with her neurologist in [place] where she already was being investigated to rule out any possibility of rare neurological disease, which could explain her overall situation. serum Lyme serology, tick borne disease testing , CATRACHO pending patient requested baclofen/zofran few days supply given per request. Outpatient massage/physical therapy and pain management followup suggested . Similarly, some patients feel better with acupuncture. also consider outpatient psych provider follow up. Assessment: as above. Discharge Date/Time: 04/14/25 16:00
[2025-04-14 15:54] VITALS: BP 97/54; PULSE 50; RESP 14; TEMP 36.4; O2SAT 97
[2025-04-14 18:53] LABS: Lyme Abs Screen <0.90 index
[2025-04-14 21:48] LABS: A. Phagocytphilium DNA,RT-PCR NOT DETECTED (NOT DETECTED); Babesia Microti DNA, RT-PCR NOT DETECTED (NOT DETECTED); Borrelia Miyamotoi,DNA RT-PCR NOT DETECTED (NOT DETECTED); E.Chaffeensis DNA RT-PCR NOT DETECTED (NOT DETECTED); Lyme(Borrelia ssp)DNA RT-PCR NOT DETECTED (NOT DETECTED)
[2025-04-18 15:19] LABS: Anti Nuclear Antibody Pattern Nuclear, Nucleolar; Anti Nuclear Antibody Screen POSITIVE (NEGATIVE); Anti Nuclear Antibody Titer 1:80 titer
== END 2025-04-14 16:00 | disposition left against medical advice (07) | DRG 103 ==
LOC: HO.ED 19:33 → HO.EDOVER 04-01 05:36 → HO.S3 04-01 16:19
PROVIDERS: Emergency Medicine; Internal Medicine; Physician Assistant; Physician Assistant Medical; Admitting Provider Student in an Organized Health Care Education/Training Program; Emergency Provider Internal Medicine; PCP Internal Medicine; Visit Provider Internal Medicine
DX: G43.911 Migraine, unspecified, intractable, with status migrainosus (principal); Q79.60 Ehlers-Danlos syndrome, unspecified; F11.20 Opioid dependence, uncomplicated; K90.0 Celiac disease; G89.29 Other chronic pain; M54.81 Occipital neuralgia; K21.9 Gastro-esophageal reflux disease without esophagitis; G90.1 Familial dysautonomia [Riley-Day]; Z79.899 Other long term (current) drug therapy
CPT/HCPCS: 36415; 70450; 70551; 70552; 80048; 80076; 80307; 81001; 83735; 84702; 85025; 85027; 85652; 86038; 86039; 86140; 86431; 86617; 86618; 87389; 87468; 87469; 87478; 87484; 87637; 87798; 93005; 99221; 99285; A9585; J0131; J0737; J1171; J1200; J1630; J2405; J3360; J7120

== ENCOUNTER → 2025-03-31 15:30 | Outpatient (BNV) | payer MEDICARE, MEDICAID, SELFPAY | PROVIDERS: Admitting Provider Student in an Organized Health Care Education/Training Program; Emergency Provider Internal Medicine; PCP Internal Medicine; Visit Provider Internal Medicine Cardiovascular Disease | DX: I49.9 Cardiac arrhythmia, unspecified (principal) | CPT/HCPCS: 93010 ==

== ENCOUNTER → 2025-04-01 00:27 | Outpatient (BNV) | payer MEDICARE, MEDICAID, SELFPAY | PROVIDERS: Admitting Provider Student in an Organized Health Care Education/Training Program; Emergency Provider Internal Medicine; PCP Internal Medicine; Visit Provider Radiology Diagnostic Radiology | DX: G44.221 Chronic tension-type headache, intractable (principal) | CPT/HCPCS: 70450; 70551 ==

== ENCOUNTER → 2025-04-01 05:33 | Outpatient (BNV) | payer MEDICARE, MEDICAID, SELFPAY | PROVIDERS: Admitting Provider Student in an Organized Health Care Education/Training Program; Emergency Provider Internal Medicine; PCP Internal Medicine; Visit Provider Nurse Practitioner Family | DX: G43.901 Migraine, unspecified, not intractable, with status migrainosus (principal) | CPT/HCPCS: 99222; 99232; 99499 ==

== ENCOUNTER → 2025-04-01 05:33 | Outpatient (BNV) | payer MEDICARE, MEDICAID, SELFPAY | PROVIDERS: Admitting Provider Student in an Organized Health Care Education/Training Program; Emergency Provider Internal Medicine; PCP Internal Medicine; Visit Provider Psychiatry & Neurology Neurology | DX: G43.901 Migraine, unspecified, not intractable, with status migrainosus (principal) | CPT/HCPCS: 99223 ==

== ENCOUNTER 2025-04-04 11:23 | Outpatient (BNV) | payer MEDICARE, MEDICAID, SELFPAY | END 2025-04-06 14:15 | PROVIDERS: Admitting Provider Student in an Organized Health Care Education/Training Program; Emergency Provider Internal Medicine; PCP Internal Medicine; Visit Provider Radiology Diagnostic Radiology | DX: R51.0 Headache with orthostatic component, not elsewhere classified (principal) | CPT/HCPCS: 70552 ==

== ENCOUNTER 2025-07-13 10:01 | Emergency (ER) | payer MEDICARE, MEDICAID, SELFPAY ==
--- OUTSIDE RECORDS SUMMARY | 2025-07-11 23:59 | XMS_ITS | Continuity of Care Document ---
Author Organization [facility] Address [address] [place] [id number] Care Team Providers Care Die Fitter Name Role Phone Arminda Hector MD Primary Care Phys[place] [facility] [place] 07/11/25 [facility] [address] [place] [id number] [place] Attending Physician: Not on Staff, Attending MD Encounter Type: Office Visit Allergies, Adverse Reactions, Alerts Substance Criticality Severity Reaction Reaction Severity Status codeine 1 severe gi upset , hives Active ibuprofen hives and sever e gi upset Active metoclopramide 2 Unknown Act barbara cyclobenzaprine 3 Unknown Ac tive scopolamine 4 Unknown Active Flexeril Delirium Active Reglan 5 hives, severe g i upset Active Glutens pt. has celiac' s disease Active Cyclobenzaprine Hydrochloride Unknown Active Metoclopramide Hydrochloride Unknown Active Scopalamine Hydrobromide Trihydrate anaphylaxis Acti ve 1Pt mother states pt gets upset stomach but denies rash, diff. breathing, vomiting or diarrhea 2Outside Source Comment: felt hot all over 3Outside Source Comment: Other reaction(s): Delirium 4Outside Source Comment: Other reaction(s): anaphylaxis 5felt hot all over Immunizations Given and Recorded Vaccine Date Status Refusal Reason SARS-CoV-2 (COVID-19) mRNA-2794 vaccine 12/04/20 R ecorded Medications Albuterol (Eqv-ProAir HFA) 90 mcg/inh inhalation aerosol 2 puffs, Inhalation, Every 6 hours, 0 Refills, Maintenance, 08/31/20 11:34:00 AM EST, Partial fill upon patient request if the prescription is for a schedule II opioid drug. Start Date: 08/31/20 Status: Ordered Medication Dispense Status: Completed Total Allowed Fills: 1 Fills Dispensed: 0 Belbuca 900 mcg buccal film 1 film = 900 mcg, By Mouth, Every 12 hours, For chronic pain, # 56 film, 2 Refills, Maintenance, 06/01/25 8:33:00 AM EDT, [facility]/pharmacy #[id number], 157.48, cm, 04/28/25 13:10:00 EDT, Height, 49.4, kg, 08/09/24 16:28:00 EST, Dry Weight Start Date: 06/01/25 Status: Ordered Medication Dispense Status: Completed Quantity: 56.0 Unit: film Total Allowed Fills: 3 Fills Dispensed: 0 Indications: Dorsalgia, unspecified; Cervicalgia; CBD/THC CBD/THC, See Instructions, Refills 0, Maintenance, 10/04/24 8:47:00 AM EST, Supply Start Date: 10/04/24 Status: Ordered Medication Dispense Status: Completed Total Allowed Fills: 1 Fills Dispensed: 0 Controlled Substance Agreement Controlled Substance Agreement, See Instructions, # 1 each, Refills 0, Tot. Refills 0, Maintenance,Signed On: 01/05/19 Updated: 07/15/2024 Pharmacy I: [facility] Sheela MARAVILLA DX: Widespread Neuropathic Pain, 07/11/21 10:40:00 AM EDT, Compound Start Date: 07/11/21 Status: Ordered Medication Dispense Status: Completed Quantity: 1.0 Unit: each Total Allowed Fills: 1 Fills Dispensed: 0 cromolyn 20 mg/mL oral solution = 200 mg, By Mouth, 4 times a day, 30 minutes before meals and at bedtime, 0 Refills, Maintenance, 09/14/19 3:49:00 PM EST, Solution Start Date: 09/14/19 Status: Ordered Medication Dispense Status: Completed Total Allowed Fills: 1 Fills Dispensed: 0 EpiPen 2-Nathaniel = 0.3 mg, Intramuscular, Once, 0 Refills, Maintenance, 09/28/20 10:55:00 AM EST, Partial fill upon patient request if the prescription is for a schedule II opioid drug. Start Date: 09/28/20 Status: Ordered Medication Dispense Status: Completed Total Allowed Fills: 1 Fills Dispensed: 0 Estarylla 0.25 mg-35 mcg oral tablet See Instructions, TAKE 1 TABLET BY MOUTH EVERY DAY, # 84 tablet, 3 Refills, Maintenance, 06/23/25 1:21:00 PM EDT, [facility]/pharmacy #[id number], 84, TAKE 1 TABLET BY MOUTH EVERY DAY, 157.48, cm, 06/22/25 13:33:00 EDT, Height, 49.4, kg, 08/09/24 16:28:00 EST, Dry Weight Start Date: 06/23/25 Status: Ordered Medication Dispense Status: Completed Quantity: 84.0 Unit: tablet Total Allowed Fills: 4 Fills Dispensed: 0 LORazepam 0.5 mg oral tablet 14 each, 0 Refill(s), TAKE 1 TABLET BY MOUTH NEEDED IN THE MORNING AND AT BEDTIME FOR ANXIETY FOR UP TO 7 DAYS., 0 Refills, 02/16/25 1:40:00 PM EDT, Partial fill upon patient request if the prescription is for a schedule II opioid drug. Start Date: 02/16/25 Status: Ordered Medication Dispense Status: Completed Total Allowed Fills: 1 Fills Dispensed: 0 Mestinon 60 mg oral tablet 90 mg, By Mouth, 2 times a day, Refills 0, Maintenance, 05/19/18 1:30:25 PM EDT Start Date: 05/19/18 Status: Ordered Medication Dispense Status: Completed Total Allowed Fills: 1 Fills Dispensed: 0 methenamine hippurate 1 gm oral tablet 1 tablet = 1 Gm, By Mouth, 2 times a day, # 10 tablet, 0 Refills, Maintenance, 03/05/22 5:09:00 PM EDT, Tablet, Partial fill upon patient request if the prescription is for a schedule II opioid drug. Start Date: 03/05/22 Stop Date: 03/10/22 Status: Ordered Medication Dispense Status: Completed Quantity: 10.0 Unit: tablet Total Allowed Fills: 1 Fills Dispensed: 0 metoprolol 25 mg oral tablet, extended release 25 mg, 1, tablet, By Mouth, Daily in AM, Refills 0, Maintenance, 05/06/18 2:33:27 PM EDT Start Date: 05/06/18 Status: Ordered Medication Dispense Status: Completed Total Allowed Fills: 1 Fills Dispensed: 0 morphine 15 mg oral tablet, immediate release See Instructions, 0.5 to 1 tab po Q 4-6hrs PRN breakthrough pain., # 60 tablet, 0 Refills, Maintenance, 06/27/25 3:54:00 PM EDT, [facility] #[id number], Partial fill upon patient request. FARHANA-1., 157.48,cm, 06/27/25 12:31:00 EDT, Height, 49.4, kg, 08/09/24 16:28:00 EST, Dry Weight Start Date: 06/27/25 Status: Ordered Medication Dispense Status: Completed Quantity: 60.0 Unit: tablet Total Allowed Fills: 1 Fills Dispensed: 0 Indications: Cervicalgia; Other low back pain; Narcan 4 mg/0.1 mL nasal spray See Instructions, Call 911; SPRAY ONCE INTO ONE NOSTRIL MAY REPEAT Q 2 TO 3 MINUTES IN ALTERNATE NOSTRILS IF NO RESPONSE, # 2 each, 0 Refills, Maintenance, 06/27/25 3:54:00 PM EDT, [place], [id number], For personal and community harm reduction, 157.48, cm, 06/27/25 12:31:00 EDT, Height, 49.4,kg, 08/09/24 16:28:00 EST, Dry Weight Start Date: 06/27/25 Status: Ordered Medication Dispense Status: Completed Quantity: 2.0 Unit: each Total Allowed Fills: 1 Fills Dispensed: 0 omeprazole 40 mg oral enteric coated capsule = 40 mg, By Mouth, 2 times a day, TAKE 1 CAPSULE BY MOUTH TWICE A DAY Start Date: 03/27/20 Status: Ordered Medication Dispense Status: Completed Total Allowed Fills: 1 Fills Dispensed: 0 Vitamin D 53019 iu oral capsule 1, capsule, By Mouth, # 4 capsule, Refills 0, Maintenance, 03/05/22 5:03:00 PM EDT, Partial fill upon patient request if the prescription is for a schedule II opioid drug. Start Date: 03/05/22 Status: Ordered Medication Dispense Status: Completed Quantity: 4.0 Unit: capsule Total Allowed Fills: 1 Fills Dispensed: 0 Vitamin D3 5000 intl units oral tablet 1 tablet = 125 mcg, By Mouth, Daily, # 100 tablet, 0 Refills, Maintenance, 03/05/22 7:05:00 PM EDT, Tablet, Partial fill upon patient request if the prescription is for a schedule II opioid drug. Start Date: 03/05/22 Status: Ordered Medication Dispense Status: Completed Quantity: 100.0 Unit: tablet Total Allowed Fills: 1 Fills Dispensed: 0 Problem List Condition Confirmation Course Effective Dates Status Health Status Informant Labral tear of left hip joint Confirmed Active Temporomandibular joint pain Confirmed Active Asthma Confirmed Active Bipolar disorder, unspecified Confirmed Active Pelvic pain in female; chronic Confirmed Active Decreased range of motion of left shoulder Confirmed Active Decreased range of motion of right shoulder Confirmed Active Dizziness & vertigo Confirmed Active Medical cannabis use Confirmed Active Grecai-Danlos syndrome Confirmed Active Endometriosis Confirmed Active Abdominal pain, epigastric Confirmed Active Family history of alcohol use disorder 1 Confirmed Active Family history of substance use disorder: mother & maternal gr father- substance/cocaine disorder Confirmed Active Family history of bipolar disorder: mat grandmother Confirmed Active Limitation of activities due to disability 2, 3, 4, 5, 6 Confirmed Active Gastroparesis Confirmed Active Anxiety, generalized Confirmed Active Hip pain, bilateral Confirmed Active Knee pain, bilateral Confirmed Active Abdominal pain, left lower quadrant: in setting of constipation Confirmed Active Mechanical low back pain Confirmed Active Adverse effect of methadone in therapeutic use 7 Confirmed Active Migraine headache with aura (visual) Confirmed Active Nausea, daily Confirmed Active Neck pain Confirmed Active Obsessive-compulsive disorder Confirmed Active Occipital headache Confirmed Active Dyspareunia in female Confirmed Active Risk assessment: SOAPP-R 8 Confirmed Active Risk assessment: Adverse Childhood Experience 9 Confirmed Active Contraception management Confirmed Active Post-traumatic stress disorder Confirmed Active Decreased libido Confirmed Active Shoulder pain, bilateral Confirmed Active Shoulder pain, left Confirmed Active Lack of adequate sleep Confirmed Active Social Phobia Confirmed 02/24/12 Active History of probable status migrainosus onset 03/29/25 Confirmed Active 1Maternal gr father alcohol; paternal cousins - 2 alcohol related 2Updated Oswestry Disability Index: 64% ( crippled ); updated [place] Back Pain Disability Scale score: 80; both on 07/15/24 3Updated Oswestry Disability Index: 74% ( crippled ); updated [place] Back Pain Disability Scale score: 86; both on 05/08/23 4Updated Oswestry Disability Index: 68% ( crippled ); updated [place] Back Pain Disability Scale score: 78; both on 01/10/22. 5Updated Oswestry Disability Index 68% ( crippled ) on 06/02/2019; updated [place] Back Pain Disability Index: 84 on 06/02/2019 6Initial Oswestry Disability Index: 74% ( crippled ) on 05/19/18; initial [place] Back Pain DisabilityScale score: 88 on 05/19/18 7Trial of methadone begun on/after 01/05/19. Dose very slowly incr'd to 25mg/day in divided dose. On 03/25 wished to stop taking->reduced q 3days till off. Off methadone, felt better emotionally & in retrospect, while on tx was easily frustrated & more quick to tears ; also frustrated with hassles assoc'd w methadone prescriptions. It did reduce pain to some extent. 8SOAPP-R: 18 (page 1=15) on 05/19/18 9ACE score: 6 on 02/18/19 Imaging * Event Display: [facility] MEAT [facility]OST[facility] Transvaginal, Complete * Event Display: [facility] MEAT [facility] Transvaginal, Complete Authored Date: [id number] Gynecological Report Signed Final 07/05/2025 4:14 PM Patient Info ID: [id number] ANSELMO Angel.O.B.: LARRY 07/04/2025 1:13 PM FMRN: Name: Date: [id number] (30 y) (F) Performed By Attending: Cheikh Jean MD Referred By: Anjali Tian MD Performed By: Safia Ware RDMS Ref Address: [facility] EDUCATION FINANCE PROCESSOR Location: MEAT HOST[facility] #[id number] Service(s) Provided Code MEAT HOSTESS Vaginal 11296 (SGI=[id number]) Indications Code Pain pelvic R10.2 Comparison US 07/14/23- Normal uterus, endometrium and ovaries. History ------- Age: 30 Day of Cycle: 22 LMP: 06/13/2025 Menses: Irregular Hx Comments Pt with Grecia Danlos syndrome. Has chronic pelvic pain and irregular periods. Uterus ------ Uterus: Present Position: Anteverted Anteflexed Cervix Length: 0.88 cm Size (cm) L: 7.59 W: 3.6 H: 2.5 Volume (ml): 31.62 (Cervix excluded) Endometrium Endometrium: Visualized Thickness (mm): 2.2 Cervix ------ Normal appearance [place] No fluid was visualized Right Ovary Status: Visualized Size (cm) L: 1.97 W: 2.1 H: 1.31 Vol. (ml):2.84 Left Ovary Staus: Visualized Size (cm) L: 1.97 W: 1.25 H: 1.72 Vol.(ml): 2.22 Comments -------- Uterus appears anteverted with normal contours and myometrial echogenicity. Cervix appears within normal limits and appears to glide freely within the pelvis (positive sliding sign). Endometrium measures 2.2 mm and appears within normal limits. Right and left ovary appear within normal limits, no other adnexal masses seen bilaterally. No significant free fluid seen within the cul-de-sac. Impression Unremarkable pelvic ultrasound. Cheikh Jean MD Electronically Signed Final Report 07/05/2025 4:14 PM * Event Display: [facility] ME[facility] Transvaginal, Complete Authored Date: [id number] Please click on pdf link to open report Patient Care team information Care Team Personnel Name: Cortney Serrato RN Position: [facility] OB RN Member Role: Primary Care Nurse Name: Velma Hummel Position: [facility] RN Member Role: Primary Care Nurse Name: Arminda Hector MD Position: [facility] Physician - Pediatrics Member Role: PCP Address: [address] [place] [address]- Telecom: Name: Nadya Purvis RN Position: [facility] RN Member Role: Primary Care Nurse Name: Eugenia Harman MD, Rangel Guardado Position: [facility] Anesthesiology MD Member Role: Lifetime Consulting Physician Address: [address] [place] [address]- Telecom: Name: Kael Bledsoe RN Position: [facility] RN Member Role: Primary Care Nurse Name: Christy Park LPN Position: [facility] RN Member Role: Primary Care Nurse Name: Terra Valdes RN Position: [facility] RN Member Role: Primary Care Nurse Care Team Related Persons Name: LOUIE ZHONG Name: KADE JUAREZ Name: DIANA JUAREZ Name: DIANA JUAREZ Name: DIANA JUAREZ Name: CANDIDO SINHA Insurance Providers Guarantor name: ANSELMO JUAREZ Health Plan Information #: 1 Payer: MEDICARE B Payer Identifier: Member Number: [id number] Group Number: Subscriber Identifier: [id number] Relationship to Subscriber: self Coverage Type: NA Coverage Verification Date: NA Telecom: NA Address: Health Plan Information #: 2 [facility] [employer] Payer Identifier: Member Number: [id number] Group Number: Subscriber Identifier: [id number] Relationship to Subscriber: self Coverage Type: MEDICAID Coverage Verification Date: NA Telecom: NA Address: NA
--- NOTE | ~2025-07-13 | CT_ITS ---
EXAMINATION: CT ANGIOGRAM CHEST, abdomen, and pelvis CLINICAL INFORMATION: Connective tissue disease, chest pain COMPARISON: CT abdomen and pelvis April 10, 2018 TECHNIQUE: Multiple axial images were obtained through the chest abdomen, down to the level of the mid hip joint. After the administration of 70 mL of Omnipaque 350 intravenous contrast. Extensive vascular post-processing including two-dimensional and three-dimensional reformatted images were created and reviewed on an independent workstation. This CT examination was performed using dose optimization techniques as appropriate, variously including the following: *Automated exposure control *Adjustment of mA and/or kV according to patient size (this includes techniques or standardized protocols for targeted exams where dose is matched to indication/reason for exam; i.e. extremities or head) *Use of iterative reconstruction technique FINDINGS: QUALITY OF STUDY/CONTRAST BOLUS: Adequate AORTA/Vascular: Motion mildly degrades images. No intimal flap, mural hematoma, or aneurysm is identified. No central pulmonary embolus is evident. LUNGS AND PLEURA: Lungs are clear. There is no pleural effusion or pleural thickening. MEDIASTINUM: Unremarkable CORONARY ARTERY CALCIFICATION: None CHEST WALL/AXILLA: No axillary or internal mammary lymphadenopathy. ABDOMEN AND PELVIS: Liver and gallbladder are unremarkable. Pancreas and spleen are unremarkable. Adrenal glands and kidneys are unremarkable. The upper half of the bladder is within normal limits. The lower aspect was not imaged. Uterus and adnexa are unremarkable. There is trace free fluid in the pelvis. Visualized bowel demonstrates surgical line along the medial aspect of the cecum, possibly related to prior appendectomy. BONES: Unremarkable CT/CT angio chest aorta IMPRESSION: No evidence of dissection or other vascular abnormality. Probable surgical changes related to appendectomy. Fleischner guidelines were followed. Electronically signed by: Micah Drake MD 07/13/2025 01:27 PM EST
--- NOTE | ~2025-07-13 | CT_ITS ---
EXAMINATION: CT ANGIOGRAM CHEST, abdomen, and pelvis CLINICAL INFORMATION: Connective tissue disease, chest pain COMPARISON: CT abdomen and pelvis April 10, 2018 TECHNIQUE: Multiple axial images were obtained through the chest abdomen, down to the level of the mid hip joint. After the administration of 70 mL of Omnipaque 350 intravenous contrast. Extensive vascular post-processing including two-dimensional and three-dimensional reformatted images were created and reviewed on an independent workstation. This CT examination was performed using dose optimization techniques as appropriate, variously including the following: *Automated exposure control *Adjustment of mA and/or kV according to patient size (this includes techniques or standardized protocols for targeted exams where dose is matched to indication/reason for exam; i.e. extremities or head) *Use of iterative reconstruction technique FINDINGS: QUALITY OF STUDY/CONTRAST BOLUS: Adequate AORTA/Vascular: Motion mildly degrades images. No intimal flap, mural hematoma, or aneurysm is identified. No central pulmonary embolus is evident. LUNGS AND PLEURA: Lungs are clear. There is no pleural effusion or pleural thickening. MEDIASTINUM: Unremarkable CORONARY ARTERY CALCIFICATION: None CHEST WALL/AXILLA: No axillary or internal mammary lymphadenopathy. ABDOMEN AND PELVIS: Liver and gallbladder are unremarkable. Pancreas and spleen are unremarkable. Adrenal glands and kidneys are unremarkable. The upper half of the bladder is within normal limits. The lower aspect was not imaged. Uterus and adnexa are unremarkable. There is trace free fluid in the pelvis. Visualized bowel demonstrates surgical line along the medial aspect of the cecum, possibly related to prior appendectomy. BONES: Unremarkable CT/CT angio abdomen pelvis IMPRESSION: No evidence of dissection or other vascular abnormality. Probable surgical changes related to appendectomy. Fleischner guidelines were followed. Electronically signed by: Micah Drake MD 07/13/2025 01:27 PM EST
--- NOTE | 2025-07-13 10:06 | ECG_ITS ---
Test Reason : cp,tachy Blood Pressure : */* mmHG Vent. Rate : 165 BPM Atrial Rate : 165 BPM P-R Int : 112 ms QRS Dur : 82 ms QT Int : 242 ms P-R-T Axes : 81 -81 49 degrees QTcB Int : 400 ms Sinus tachycardia Left axis deviation Nonspecific ST changes Abnormal ECG When compared with ECG of 31-Mar-2025 15:48, Vent. rate has increased by 95 bpm QRS axis Shifted left Nonspecific T wave abnormality now evident in Inferior leads Referred By: Wero Fried Electronically Signed By: Harley Santiago
[2025-07-13 10:17] VITALS: BP 169/93; PULSE 155; RESP 18; TEMP 36.6; O2SAT 98; BMI 19.8
--- NOTE | 2025-07-13 10:18 | ED.GENADULT ---
HPI - General Adult General Chief complaint: General Medical Stated complaint: Fast Heart Rate, Trouble Breathing Time Seen by Provider: 07/13/25 10:26 Source: patient Mode of arrival: ambulatory Limitations: no limitations History of Present Illness ED Provider: HPI narrative: A 30-year-old female with Grecia Danlos syndrome, celiac disease, long history of vocal cord anomaly, dysautonomia with small fiber neuropathy, dysphagia, presented with tachycardia, reported significant chest pain and initially was just not able to speak, however with some prompting she was able to tell me that started not feeling well having numbness allover was not able to speak she is here with her partner who was able to provide additional information, Dr. 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 Deferring to her partner to answer questions but would prompting is able to communicate with her care team. Related Data Home Medications ?Medication ?Instructions ?Recorded ?Confirmed epinephrine 0.3 mg/0.3 mL 0.3 mg IM Q10M PRN Allergic 10/04/20 04/01/25 injection, auto-injector Reaction norgestimate 0.25 mg-ethinyl 1 tab PO DAILY 10/04/20 04/01/25 estradiol 0.035 mg tablet (Sprintec (28)) cromolyn 100 mg/5 mL oral 200 mg PO QIDWMHS 01/23/21 04/01/25 concentrate multivitamin 1 tab PO DAILY 01/23/21 04/01/25 Lactobacillus acidophilus 10 10,000 mmu cells PO DAILY 04/01/25 04/01/25 billion cell capsule (Probiotic) albuterol sulfate 90 mcg/actuation 2 puff inhalation Q4H PRN dyspnea 04/01/25 04/01/25 aerosol inhaler buprenorphine HCl 900 mcg buccal 900 mcg buccal Q12H chronic pain 04/01/25 04/01/25 film (Belbuca) methenamine hippurate 1 gram tablet 1 g PO DAILY 04/01/25 04/01/25 metoprolol succinate 25 mg 25 mg PO DAILY 04/01/25 04/01/25 tablet,extended release 24 hr omeprazole 40 mg capsule,delayed 40 mg PO DAILY@0630 04/01/25 04/01/25 release pyridostigmine bromide 60 mg tablet 30 mg PO BEDTIME 04/01/25 04/01/25 pyridostigmine bromide 60 mg tablet 60 mg PO DAILY 04/01/25 04/01/25 Previous Rx's ?Medication ?Instructions ?Recorded baclofen 10 mg tablet 10 mg PO TID PRN Cramps #15 tabs 04/14/25 ondansetron 4 mg disintegrating 4 mg PO Q8H PRN nausea and 04/14/25 tablet vomiting #14 tabs Allergies Allergy/AdvReac Type Severity Reaction Status Date / Time codeine (CODEINE) Allergy Unknown UNKNOWN Verified 07/13/25 10:19 cyclobenzaprine (From Allergy Unknown UNKNOWN Verified 07/13/25 10:19 FLEXERIL) ibuprofen (From MOTRIN) Allergy Unknown UNKNOWN Verified 07/13/25 10:19 metoclopramide (From REGLAN) Allergy Unknown AGITATION Verified 07/13/25 10:19 scopolamine (SCOPOLAMINE) Allergy Unknown ANAPHYLAXIS Verified 07/13/25 10:19 GLUTENS Allergy Unknown GI DISTRESS Uncoded 07/13/25 10:19 Review of Systems Constitutional: Constitutional: Reports as per [facility] Past Medical History Medical History Ureter injury Wrist disorder Body dysmorphic disorder Dysmenorrhea OCD (obsessive compulsive disorder) PTSD (post-traumatic stress disorder) Bipolar 1 disorder Migraine Hip deformity Tachycardia Chronic pain Vocal cord anomaly Lordosis Mast cell activation Small fiber neuropathy Dysautonomia Grecia-Danlos syndrome Celiac disease Surgical History H/O colonoscopy History of esophagogastroduodenoscopy (EGD) History of kidney surgery H/O wrist surgery [place] teeth extracted History of appendectomy Family History Family History Mother No problems noted. Father No problems noted. Social History Social History Household Members: Significant Other Household Members Other:: BF and 3 room mates Housing: House Do you presently have visiting nurse or other home services: No Alcohol intake: never Comment: pt refusing all fall interventions Patient Tobacco Use Status: Never used Tobacco Smoked in Last 30 Days: No Use of substances other than those prescribed or required for medical reasons: No Advance Directives: No Advance Directives Information Provided: Yes Do you have a plan to hurt others: No Plan Patient : No service: No Current occupational status: disabled Physical Exam ED Exam Exam: General: ?Appears of stated age, ? ?no scleral icterus ? Neck: Supple, no LAD ? ?CV: Tachy, regular I did not appreciate murmurs, radial pulses +2 bilateral ? ?Resp: ?No wheezing rales rhonchi no stridor moving air well ? Abd: ?Bowel sounds are present, no tenderness no rebound no rigidity, no pulsatile masses ? ?MSK: FROM, strength 5/5 all extremities ? Skin: Warm, dry, intact, ? ?Neuro: ?Alert and oriented x3, moving upper and lower extremities symmetrically, no obvious facial asymmetry noted, cranial nerves 2-12 intact Denied anxiety however tachypneic, poor eye contact, deferring to partner for information Vital Signs: Vital Signs - 24 hr 07/13/25 10:17 07/13/25 11:21 07/13/25 11:38 Temperature 98 F Pulse Rate 155 H 79 74 Respiratory Rate 18 15 20 Blood Pressure 169/93 H 136/96 H 111/67 Pulse Oximetry 98 100 99 Oxygen Delivery Method Room Air Room Air Room Air 07/13/25 12:23 07/13/25 14:33 Temperature 98.2 F 98.2 F Pulse Rate 91 91 Respiratory Rate 19 19 Blood Pressure 97/58 L 97/58 L Pulse Oximetry 98 98 Oxygen Delivery Method Room Air Room Air BMI result Body Mass Index 19.8 Course Course Course Narrative: RME; 30 yold female with pmh to [place] and mass cell activation presents to the ED tachycardia with heart rate in the 180's and feeling off. Patient EKG shows sinus tachycardia 165. labs, EKG, ordered. patient going back to the ED. Charge nurse made lock Medications Administered Discontinued Medications Generic Name Dose Route Start Last Admin Trade Name Freq PRN Reason Stop Dose Admin Diazepam 5 mg 07/13/25 11:02 07/13/25 11:35 Diazepam 10 Mg/2 Ml Cartridge IVPUSH 07/13/25 11:03 5 mg STAT STA Administration Diphenhydramine HCl 12.5 mg 07/13/25 12:38 07/13/25 13:16 Diphenhydramine Hcl 50 Mg/Ml Vial IVPUSH 07/13/25 12:39 12.5 mg ONCE ONE Administration Sodium Chloride 1,000 mls @ 999 mls/hr 07/13/25 11:15 07/13/25 12:32 Ns IV 07/13/25 12:15 Infused .Q1H1M LUIS Infusion Iohexol 100 ml 07/13/25 12:57 07/13/25 12:58 Iohexol 350 Mg/Ml 100 Ml Infus..Btl IV 07/13/25 12:58 70 ml ONCE ONE Administration Meclizine HCl 25 mg 07/13/25 12:26 07/13/25 12:36 Meclizine Hcl 25 Mg Tablet PO 07/13/25 12:27 Not Given ONCE ONE Medical Decision Making Medical Decision Making MDM Narrative: 11:17 AM 07/13/2025 (Dr. Jarad Serrato): Patient initially presented tachycardic from the waiting room, I have asked the staff to bring her in for that. As I was speaking to her she had a hard time establishing eye contact initially, deferred to her partner stating that she is having chest pain by speaking, tachypneic, however with some verbal reassurance her heart rate when down quite a bit from 150s to lower 100s, blood pressures remained stable, giving her history of connective tissue disease I am going to initiate workup for aortic dissection, ECG without underlying dysrhythmia such as SVT, or AFib with a aberrancy or V-tach etc. we will check cardiac enzymes, TSH, I noted her prior admission when she was admitted for intractable migraine that was responding to Dilaudid only, not sure if that had to do with her history of chronic pain or dysautonomia. Otherwise no history of alcohol use, or drug use or marijuana use. 2:12 PM 07/13/2025 (Dr. Jarad Serrato): Patient's CT findings discussed with her, she is speaking full sentences, stated she could not swallow pills, and can not swallow water, she was offered a swallow eval by nurses but declined, her heart rate in the 60s, repeat ECG with heart rate 65 normal sinus rhythm, QTC 455 I spent a significant amount of time speaking with her partner and we established good rapport and then her father was at bedside and I have explained to her father the type of workup that I have done and the fact that she has managed quite well and her vital signs are improved, both her father and her partner I feel like followed my reasoning and management quite well, however patient herself continued to have concerns about how she feels and mentioned multiple symptoms,, I discussed the fairly involved workup with her, and improvement in her vital signs and outpatient follow up with her specialist in [place]. Differential Diagnosis Differential Diagnoses: The differential diagnosis associated with the presentation includes (Aortic dissection, PE, dysrhythmia, dehydration, anxiety, POTS) Admission/Observation Consideration of admission/observation: Escalation of care including admission/observation considered Lab Data MDM Lab Attestation statement: I reviewed the patient's lab results. 07/13/25 11:04 07/13/25 11:04 Labs: Lab Results 07/13/25 Range/Units 11:04 WBC 5.4 (4.8-10.8) X10*3/uL RBC 4.02 L (4.20-5.50) X10*6/uL Hgb 12.2 (12.0-16.0) g/dl Hct 35.9 L (37.0-47.0) % MCV 89.3 (80.0-98.0) fL MCH 30.3 (27.0-33.0) pg MCHC 34.0 (31.0-35.0) g/dl RDW 13.2 (11.0-16.0) % Plt Count 183 (160-400) X10*3/uL MPV 10.4 (9.4-12.3) fL Immature Gran % (Auto) 0.4 (0.0-0.4) % Neut % (Auto) 68.7 (45-73) % Lymph % (Auto) 20.8 (20-40) % Toole % (Auto) 8.8 (2-11) % Eos % (Auto) 0.9 (0-4) % Baso % (Auto) 0.4 (0-2) % Lymph # (Auto) 1.1 L (1.2-4.9) X10*3/uL Toole # (Auto) 0.5 (0.1-1.2) X10*3/uL Eos # (Auto) 0.1 (0.0-0.4) X10*3/uL Baso # (Auto) 0.0 (0.0-0.2) X10*3/uL Abs Immat Gran (auto) 0.02 (0.00-0.03) X10*3/uL Absolute Neuts (auto) 3.7 (2.0-8.3) x10*3/uL Absolute Nucleated RBC 0.000 (0.0-0.012) X10*3/uL Nucleated RBC % (auto) 0.0 (0.0-0.2) /100WBC PT 13.9 H (11.2-13.5) SEC INR 1.1 (0.9-1.1) APTT 26.4 L (26.7-34.1) SEC Sodium 140 (135-145) mmol/L Potassium 3.6 (3.3-5.1) mmol/L Chloride 110 H (96-108) mmol/L Carbon Dioxide 21 L (22-29) mmol/L Anion Gap 13 (12-20) BUN 9 (9-16) mg/dL Creatinine 0.78 (0.5-1.4) mg/dL Estim Creat Clear Calc 83.0 Estimated GFR > 60 Random Glucose 132 H (60-115) mg/dL Calcium 9.0 (8.4-10.2) mg/dL Total Bilirubin 0.3 (0.0-1.0) mg/dL AST 27 (5-31) U/L ALT 19 (0-31) U/L Alkaline Phosphatase 37 L (39-117) U/L Troponin I High Sens < 2.7 (<3.5-17.0) ng/L Total Protein 6.3 L (6.5-8.0) g/dL Albumin 3.8 (3.5-5.0) g/dL TSH 0.69 (0.32-4.0) uIU/mL Beta HCG, Quant < 2 mIU/mL Independent Interpretation I performed an independent interpretation of an: EKG (165 beats per minute, sinus tachycardia) Radiology Impression Discussion of test interpretation with radiology: I have reviewed the radiologist's reading. (No evidence of dissection or other vascular abnormality. Probable surgical changes related to appendectomy. No evidence of dissection or other vascular abnormality. Probable surgical changes related to appendectomy. ) Radiologist Impression: No acute findings, specifically no dissection Independent Historian Clinical information obtained from an independent historian. History obtained from or confirmed by: Other (Patient's partner provided a bulk of her history) External Record Review External record reviewed: Inpatient record and Outpatient record Prescription Management I considered prescription management with: Pain Medication Chronic Conditions Patient?s care impacted by: Other (Grecia-Danlos syndrome, dysautonomia, chronic pain) Critical Care Time Critical Care Time Critical Care Time: Yes Total Critical Care Time: 55 Attestation: Time is exclusive of separately billable procedures. Time includes: direct patient care, patient reassessment, coordination of patient care, interpretation of data (laboratory data, pulse oximetry, arterial blood gases and chest xrays), review of patient's medical records, medical consultation and documentation of patient care. Procedures excluded from critical care time: central intravenous line placement and electrocardiography. Discharge Plan Discharge Clinical Impression: Tachycardia, Chest pain, precordial, Dysautonomia Patient Disposition: Home, Self-Care Instructions: Chest Pain (ED), Atrial Tachycardia (ED) Additional Instructions: Evaluated with multiple symptoms, you had a fairly involved workup which included blood work, EKG and CAT scan angiography of the chest and abdomen pelvis, your cardiac enzymes are unremarkable I would like you to get in touch with your primary care physician who is managing your dysautonomia discuss your visit, discuss your presentation, your workup and establish follow up You are welcome to come back to emergency department for re-evaluation should you feel any other issues or concerns, based on your ER visit I am not recommending any medication changes Prescriptions: No Action omeprazole 40 mg capsule,delayed release(DR/EC) 40 mg PO DAILY@0630 methenamine hippurate 1 gram tablet 1 g PO DAILY metoprolol succinate 25 mg tablet extended release 24 hr 25 mg PO DAILY albuterol sulfate 90 mcg/actuation HFA aerosol inhaler 2 puff INHALATION Q4H PRN (Reason: dyspnea) buprenorphine HCl [Belbuca] 900 mcg film 900 mcg BUCCAL Q12H pyridostigmine bromide 60 mg tablet 60 mg PO DAILY Probiotic 10 billion cell Capsule 10,000 mmu cells PO DAILY pyridostigmine bromide 60 mg tablet 30 mg PO BEDTIME baclofen 10 mg Tablet 10 mg PO TID PRN (Reason: Cramps) Qty: 15 0RF ondansetron 4 mg tablet,disintegrating 4 mg PO Q8H PRN (Reason: nausea and vomiting) Qty: 14 0RF norgestimate-ethinyl estradiol [Sprintec (28)] 0.25-35 mg-mcg tablet 1 tab PO DAILY epinephrine 0.3 mg/0.3 mL auto-injector 0.3 mg IM Q10M PRN (Reason: Allergic Reaction) Rx Instructions: for 2 doses cromolyn 100 mg/5 mL concentrate 200 mg PO QIDWMHS multivitamin Tablet 1 tab PO DAILY Referrals: Arminda Hector MD [Primary Care Provider, Internal Medicine] - 1 week Clinical Impression: Dysautonomia; Tachycardia; Chest pain, precordial Interventions: ED Discharge Assessment Last Done: 07/13/25 14:33 Discharge Date/Time: 07/13/25 14:45 Print Language: Macanese
[2025-07-13 11:16] LABS: MANUAL DIFF FLAG NO
[2025-07-13 11:17] LABS: Hematocrit 35.9 % (37.0-47.0); Hemoglobin 12.2 g/dl (12.0-16.0); Imm Gran Abs Auto 0.02 X10*3/uL (0.00-0.03); Imm Gran Pct Auto 0.4 % (0.0-0.4); Lymphocytes Absolute Auto 1.1 X10*3/uL (1.2-4.9); Mean Corpuscular HGB Conc 34.0 g/dl (31.0-35.0); Mean Corpuscular Hemoglobin 30.3 pg (27.0-33.0); Mean Corpuscular Volume 89.3 fL (80.0-98.0); NRBC Abs Auto 0.000 X10*3/uL (0.0-0.012); NRBC Pct Auto 0.0 /100WBC (0.0-0.2); Platelet Count 183 X10*3/uL (160-400); Red Blood Count 4.02 X10*6/uL (4.20-5.50); White Blood Count 5.4 X10*3/uL (4.8-10.8)
[2025-07-13 11:21] VITALS: BP 136/96; PULSE 79; RESP 15; O2SAT 100
[2025-07-13 11:32] LABS: INTERNATIONAL NORM RATIO 1.1 (0.9-1.1); Prothrombin Time 13.9 SEC (11.2-13.5)
[2025-07-13 11:35] LABS: Partial Thromboplastin Time 26.4 SEC (26.7-34.1)
[2025-07-13] MEDS: diazePAM 10 MG/2 ML CARTRIDGE 5 MG IVPUSH (11:35)
[2025-07-13 11:38] VITALS: BP 111/67; PULSE 74; RESP 20; O2SAT 99
[2025-07-13 11:38] LABS: Alanine Aminotransferase 19 U/L (0-31); Albumin Level 3.8 g/dL (3.5-5.0); Alkaline Phosphatase 37 U/L (39-117); Anion Gap 13 (12-20); Aspartate Amino Transferase 27 U/L (5-31); Blood Urea Nitrogen 9 mg/dL (9-16); Calcium 9.0 mg/dL (8.4-10.2); Carbon Dioxide 21 mmol/L (22-29); Chloride 110 mmol/L (96-108); Creatinine Clr Calc Pharmacy 83.0; Estimated Glomerular Filt Rate > 60; Potassium 3.6 mmol/L (3.3-5.1); Sodium 140 mmol/L (135-145); Total Protein 6.3 g/dL (6.5-8.0)
[2025-07-13 11:51] LABS: Troponin-I High Sensitivity < 2.7 ng/L (<3.5-17.0)
[2025-07-13 12:23] VITALS: BP 97/58; PULSE 91; RESP 19; TEMP 36.8; O2SAT 98
[2025-07-13] MEDS: iohexoL 350 MG/ML 100 ML INFUS..BTL IV (12:58)
--- NOTE | 2025-07-13 13:46 | ECG_ITS ---
Test Reason : WEAKNESS Blood Pressure : */* mmHG Vent. Rate : 65 BPM Atrial Rate : 65 BPM P-R Int : 144 ms QRS Dur : 80 ms QT Int : 438 ms P-R-T Axes : 75 34 30 degrees QTcB Int : 455 ms Normal sinus rhythm with sinus arrhythmia Normal ECG When compared with ECG of 13-Jul-2025 10:07, Vent. rate has decreased by 100 bpm QRS axis Shifted right ST no longer depressed in Inferior leads Nonspecific T wave abnormality no longer evident in Inferior leads T wave amplitude has decreased in Anterior leads Referred By: Jarad Serrato Electronically Signed By: Harley Santiago
--- OUTSIDE RECORDS SUMMARY | 2025-07-13 14:11 | XMS_ITS | Clinical Summary ---
Author Organization [facility] Address [address] [address] Phone Care Team Providers Care Delineator Name Role Phone Arminda Hector MD Primary Care Provider [phone] Jomar Renteria MD, MPH Unavailable [phone] Allergies Active Allergy Reactions Criticality Noted Date Comments Codeine GI Upset 10/02/2017 Cyclobenzaprine Other (See Comments) 10/02/2017 Feels spacey Ibuprofen Itching 10/02/2017 Agitated and overheated Scopolamine Base Anaphylaxis High 10/02/2017 patch Medications metoprolol succinate (TOPROL-XL) 25 MG 24 hr tablet Take 25 mg by mouth daily. Active norgestimate-eth inyl estradiol (ORTHO-CYCLEN) 0.25-0.035 mg per tablet Take 1 tablet by mouth daily. Active albuterol 90 mcg/actuation inhaler Inhale 2 puffs into the lungs every 6 (six) hours as needed for wheezing. Active morphine (MSIR) 15 MG tablet Take 15 mg by mouth every 4 (four) hours as needed for pain (specific location in comments) (pain). Taken 7.5mg as need it for pain Active cromolyn (GASTROCROM) 100 mg/5 mL solution TAKE 10 ML (200 MG TOTAL) BY MOUTH 4 (FOUR) TIMES A DAY. 480 mL 1 0 Active omeprazole (PRILOSEC) 40 MG capsuleIndicatio ns:Gastroesophag eal reflux disease with esophagitis TAKE 1 CAPSULE BY MOUTH TWICE A DAY 60 capsule 1 Active famotidine (PEPCID) 40 MG tabletIndication s:Mast cell activation,Gastr oesophageal reflux disease without esophagitis TAKE 1 TABLET BY MOUTH TWICE A DAY 60 tablet 1 Active buprenorphine HCl (BELBUCA) 450 mcg Film 2 (two) times a day. 2 Active methenamine (HIPREX) 1 gram tablet TAKE 1 TABLET BY MOUTH 2 TIMES A DAYWITH VITAMIN C OR CRANBERRY TABLET 2 Active pyRIDostigmine (MESTINON) 60 mg tablet take 1 tablet by mouth three times a day 270 tablet 3 4 Active traZODone (DESYREL) 50 MG tablet Take 1 tablet (50 mg total) by mouth nightly at bedtime as needed (insomnia). 30 tablet 5 Active methylPREDNISolo ne (MEDROL DOSEPACK) 4 mg tablet follow package directions 21 tablet 5 Active PHENobarbitaL 15 MG tablet Take 4 tablets (60 mg total) by mouth daily for 6 days, THEN 2 tablets (30 mg total) daily for 3 days, THEN 1 tablet (15 mg total) daily for 3 days. 33 tablet 5 Active Active Problems Problem Noted Date Diagnosed Date Headache 04/18/2025 Left shoulder pain 01/14/2018 Hypertension 10/09/2017 Encounters Date Type Department Care Team Description 05/16/[address] [address] Alcira Delcid MD Med Change Request 2025 Orders Only [facility] [address] [place] [address] Africa Garcia PA-C 04/19/2025 Procedure Pass [facility] Radiology [address] [place] [address] 04/18/2025 3:30 PM EDT Ancillary Procedure [facility] Radiology [address] [place] [address] Galileo Mohr MD, MS 04/18/2025 2:22 PM EDT - 04/24/2025 6:30 PM EDT Hospital Encounter [facility] 6S [address] [place] [address] Galileo Mohr MD, MS Donniedelmi, Laurie Lynch MD, MPH Steven, MD Patric Gutierrez, JESUS Farmer Carmine A, MD Discharge Disposition: Home or Self Care 04/18/2025 1:00 PM EDT Office Visit [facility] Neurology at [address] [address] Galileo Lyons MD, PhD Small fiber neuropathy (Primary Dx) 04/18/2025 Procedure Pass [facility] Radiology [facility] [place] [address] 04/18/2025 Telephone [facility] Neurology at [address] [address] Galileo Lyons MD, PhD from Last 3 Months Family History Medical History Relation Comments No Known Problems Brother No Known Problems Father No Known Problems Maternal Aunt No Known Problems Maternal Grandfather No Known Problems Maternal Grandmother No Known Problems Maternal Uncle Infl. arthritis Mother Mitral valve prolapse Mother No Known Problems Paternal Aunt Diabetes Paternal Grandfather Heart disease Paternal Grandfather No Known Problems Paternal Uncle No Known Problems Sister Clotting disorder Unspecified Diabetes Unspecified Heart disease Unspecified Cancer Neg Hx Collagen disease Neg Hx Depression Neg Hx Dislocations Neg Hx Gout Neg Hx Osteoporosis Neg Hx Scoliosis Neg Hx Relation Status Comments Brother Father Maternal Aunt Maternal Grandfather Maternal Grandmother Maternal Uncle Mother Paternal Aunt Paternal Grandfather Paternal Uncle Sister Unspecified Social History Tobacco Use Types Packs/Day Years Used Date Smoking Tobacco: Never Smokeless Tobacco: Never Alcohol Use Standard Drinks/Week Comments No 0 (1 standard drink = 0.6 oz pur e alcohol) Education Answer Date Recorded Are you interested in more education? Not on miriam e 01/03/2023 Are you concerned about learning? Not on file 01/03/2023 No 01/03/2023 No 01/03/2023 Food Answer Date Recorded Within the past 6 months we worried whether our food would run out before we got money to buy more. Sometimes True 025 Within the past 6 months the food we bought just didn't last and we didn't have enough money to get more. Sometimes True 04/08 Residential Stability Answer Date Recor ded What is your housing situation today? I have kamaljit sing 04/18/2025 How many times have you move d in the past 12 months? Zero (I did not move) 04/18/2025 Paying for Meds Answer Date Recorded Do you have trouble paying for medicines? No 04/18/2025 Paying Utility Bills Answer Date Record ed Do you have trouble paying your heating or elect ricity bill? No 04/18/2025 Transportation Answer Date Recorded Has the lack of transportati on kept you from medical appointments or from getting medications? Yes 04/18/2025 Digital Access Answer Date Recorded No 04/18/2025 Yes 04/18/2025 Do you have reliable internet access at home? Ye s 04/18/2025 Do you have a device (e.g., phone, tablet, computer) with a working camera? Yes 04/18/2025 Intimate Partner Violence Answer Date R ecorded Are you denied basic needs s uch as food, clothing, or medical care? No 04/18/2025 In the past 12 months have y ou been in a relationship with a person who hurts, threatens, or tries to control you? No 04/18/2025 Are you denied basic needs s uch as food, clothing, or medical care? No 04/18/2025 In the past 12 months have y ou been in a relationship with a person who hurts, threatens, or tries to control you? No 04/18/2025 Comments No Sex and Gender Information Value Date Recorded Sex Assigned at Not on file Legal Sex Female 10:03 AM EDT Gender Identity Not on file Sexual Orientation Not on file Last Filed Vital Signs Vital Sign Reading Time Taken Comments Blood Pressure 107/66 04/24/2025 5:33 PM EDT Pulse 53 04/24/2025 5:33 PM EDT Temperature 36.8 C (98.2 F) 04/24/2025 5:33 PM EDT Respiratory Rate 18 04/24/2025 6:06 PM EDT Oxygen Saturation 100% 04/24/2025 5:33 PM EDT Inhaled Oxygen Concentration - - Weight 49.9 kg (110 lb) 04/18/2025 3:09 PM EDT Height 157.5 cm (5' 2 ) 04/18/2025 3:09 PM EDT Body Mass Index 20.12 04/18/2025 3:09 PM EDT Plan of Treatment Upcoming Encounters Date Type Department Care Team (Late st Contact Info) Description 07/28/2025 1:30 PM EST Office Visit [facility] [address] [facility] 9th [place] [address] Nasir Post MD [address] [place] [address] [email or web address] 01/23/2026 11:30 AM EDT Office Visit [facility] Neurology at [place] [address] [facility] [address] [place] [address] Galileo Lyons MD, PhD [address] [place] [address] Department [place] [address] [email or web address] Health Maintenance Due Date Last Done Comments DEPRESSION SCREENING 2009 HEPATITIS C SCREENING 2015 HIV ONE-TIME SCREENING (18-6 5 YEARS) 2015 Adult Td,Tdap Booster 05/15/2017 05/15/2007 PAP SMEAR 11/10/2022 11/11/2019 INFLUENZA VACCINE (#1) 2025 , 07/10/2020 COVID-19 VACCINE (2024-2 6 season) 2025 12/04/2020, 11/04/2020 BLOOD PRESSURE 10/19/2025 04/18/2025 SMOKING STATUS SCREENING (On ce After 26 Yrs) Completed 04/18/2025 HEPATITIS A VACCINES Aged Out No long er eligible based on patient's age to complete this topic HIB VACCINES Aged Out No longer eligi ble based on patient's age to complete this topic MENINGOCOCCAL VACCINES (ACWY) Aged Out No longer eligible based on patient's age to complete this topic MENINGOCOCCAL VACCINES (B) Aged Out N o longer eligible based on patient's age to complete this topic PNEUMOCOCCAL VACCINES (0-49 years) Aged Out No longer eligible b ased on patient's age to complete this topic Medical Devices Not on file Procedures Procedure Name Priority Date/Time Associated Diagnosis Comments BASIC METABOLIC PANEL (BMP) Routine 04/24/2025 6:01 AM EDT BASIC METABOLIC PANEL (BMP) Routine 04/23/2025 10:42 AM EDT ECG 12-LEAD Routine 04/23/2025 6:30 AM EDT ECG 12-LEAD Routine 2025 10:53 PM EDT ANTINUCLEAR ANTIBODY (CATRACHO) Timed 04/20/2025 6:14 AM EDT ZINC Timed 04/20/2025 6:14 AM EDT COPPER, BLOOD Timed 04/20/2025 6:14 AM EDT VITAMIN E Timed 04/20/2025 6:14 AM EDT HOMOCYSTEINE Timed 04/20/2025 6:14 AM EDT METHYLMALONIC ACID, SERUM Timed 04/20/2025 6:14 AM EDT XR CERVICAL SPINE 4-5 VIEWS Routine 04/19/2025 7:50 PM EDT MRI ANGIO BRAIN (ARTERIAL & VENOUS PHASES) WITHOUT CONTRAST Routine 04/19/2025 4:57 PM EDT EEG W/REC AWAKE&DROWSY (09129) STAT 04/19/2025 12:57 PM EDT FREE T4 Routine 04/19/2025 6:34 AM EDT SYPHILIS ANTIBODY SCREEN ASSAY Routine 04/19/2025 6:34 AM EDT FOLATE Routine 04/19/2025 6:34 AM EDT CREATINE KINASE (CK) Routine 04/19/2025 6:34 AM EDT VITAMIN B12 Routine 04/19/2025 6:34 AM EDT TSH WITH REFLEX Routine 04/19/2025 6:34 AM EDT C-REACTIVE PROTEIN (CRP), HIGH SENSITIVITY Routine 04/19/2025 6:34 AM EDT HC BLOOD COUNT COMPLETE AUTO&AUTO DIFRNTL WBC Routine 04/19/2025 6:34 AM EDT COMPREHENSIVE METABOLIC PANEL (CMP) Routine 04/19/2025 6:34 AM EDT URINALYSIS WITH REFLEX TO URINE CULTURE STAT 04/18/2025 11:39 PM EDT URINE CULTURE STAT 04/18/2025 11:39 PM EDT URINE HCG STAT 04/18/2025 11:23 PM EDT ECG 12-LEAD Routine 04/18/2025 7:37 PM EDT MRI CERVICAL SPINE (NEURO) WITH AND WITHOUT CONTRAST Routine 04/18/2025 5:11 PM EDT LIPASE STAT 04/18/2025 4:04 PM EDT LFTS (HEPATIC PANEL) STAT 04/18/2025 4:04 PM EDT BASIC METABOLIC PANEL (BMP) STAT 04/18/2025 4:04 PM EDT HC BLOOD COUNT COMPLETE AUTO&AUTO DIFRNTL WBC STAT 04/18/2025 4:04 PM EDT US BEDSIDE Routine 04/18/2025 3:26 PM EDT INSERT PERIPHERAL IV Routine 04/18/2025 3:26 PM EDT from Last 3 Months Results * Basic metabolic panel (04/24/2025 6:01 AM EDT) Only the most recent of3 resultswithin the time period is included. SODIUM 140 136 - 145 mmol/L [facility] Comment: CHLORIDE 103 98 - 107 mmol/L [facility] Comment: POTASSIUM 3.7 3.4 - 5.0 mmol/L [facility] Comment: CO2 26 22 - 31 mmol/L [facility] BUN 11 6 - 23 mg/dL [facility] CREATININE 0.81 0.50 - 1.20 mg/dL [facility] GLUCOSE 83 70 - 115 mg/dL [facility] CALCIUM 9.4 8.6 - 10.7 mg/dL [facility] EGFR 102 >60 mL/min/1.7 3m2 [facility] Comment:Estimated glomerular filtration rate calculated using the CKD-EPI refit equation. ANION GAP 12 3 - 15 mmol/L [facility] Blood 04/24/2025 6:01 AM EDT 04/24/2025 7:24 AM EDT Abiola LEE LAB BLOOD BKR ORDERABLES Final Result [facility] [address] [place] [address] * ECG 12-LEAD (04/23/2025 6:30 AM EDT) Only the most recent of3 resultswithin the time period is included. Ventricular Rate EKG/MIN 51 BPM [facility] Atrial Rate 51 BPM [facility] IN Interval 134 ms [facility] QRS Duration 86 ms [facility] QT Interval 444 ms [facility] QTC Interval 409 ms [facility] P [place] 74 degrees [facility] R Wave [place] 28 degrees [facility] T Wave [place] 26 degrees [facility] 04/23/2025 6:30 AM EDT Narrative [facility] - 04/24/2025 10:58 AM EDT Sinus bradycardia Possible Left atrial enlargement Right ventricular conduction delay Borderline ECG When compared with ECG of 21-Apr-2025 22:53, Nonspecific T wave abnormality now evident in Anterior leads Abiola WHITT ECG ORDERABLES Final Res ult Performing Organization Address [facility] de Phone Number [email or web address] * Zinc (04/20/2025 6:14 AM EDT) Pathologist [facility] Zinc, S 82 60 - 106 mcg/dL [facility] Comment: (NOTE) ADDITIONAL INFORMATION This test was developed and its performance characteristics determined by [facility] in a manner consistent with CLIA requirements. This test has not been cleared or approved by the U.S. Food and Drug Administration. Blood 04/20/2025 6:14 AM EDT 04/20/2025 7:23 AM EDT us Krista Harris MD LAB BLOOD ORDERABLES Fi nal Result Performing Organization Address [facility] Co de Phone Number [facility] LAB MED/PATH [facility] [address] [place] [address] * Copper, blood (04/20/2025 6:14 AM EDT) Copper, serum 146 77 - 206 mcg/dL [facility] MED/PATH [facility]PER[facility] Comment: (NOTE) ADDITIONAL INFORMATION This test was developed and its performance characteristics determined by [facility] in a manner consistent with CLIA requirements. This test has not been cleared or approved by the U.S. Food and Drug Administration. Blood 04/20/2025 6:14 AM EDT 04/20/2025 7:23 AM EDT Krista Harris MD LAB BLOOD BKR ORDERABLE S Final Result Performing Organization Address [facility] de Phone Number [facility] LAB MED/PATH SUPER[facility] [address] [place] [address] * Methylmalonic acid, serum (04/20/2025 6:14 AM EDT) Pathologist [facility] METHYLMALONIC ACID 0.18 <=0.40 nmol/mL [facility] DPT OF LAB MED AND PAT+ Comment: (NOTE) ADDITIONAL INFORMATION This test was developed and its performance characteristics determined by [facility] in a manner consistent with CLIA requirements. This test has not been cleared or approved by the U.S. Food and Drug Administration. Blood 04/20/2025 6:14 AM EDT 04/20/2025 7:23 AM EDT Krista Harris MD LAB BLOOD ORDERABLES Fi nal Result Performing Organization Address [facility]/ZIP Co de Phone Number [facility] DPT OF LAB MED AND PAT+ [address] [place] [address] * Antinuclear antibody (CATRACHO) (04/20/2025 6:14 AM EDT) Pathologist [facility] CATRACHO Result Negative Negative [facility] Blood 04/20/2025 6:14 AM EDT 04/20/2025 7:23 AM EDT Krista Harris MD LAB BLOOD BKR ORDERABLE S Final Result Performing Organization Address [facility] Co de Phone Number [facility] CLINICAL IMMUNOLOGY LAB [address] [place] [address] * Vitamin E (04/20/2025 6:14 AM EDT) Pathologist [facility] VIT E, A-TOCOPHEROL 11.6 5.5 - 17.0 mg/L [facility] Comment: (NOTE) ADDITIONAL INFORMATION This test was developed and its performance characteristics determined by [facility] in a manner consistent with CLIA requirements. This test has not been cleared or approved by the U.S. Food and Drug Administration. Blood 04/20/2025 6:14 AM EDT 04/20/2025 7:23 AM EDT Krista Harris MD LAB BLOOD ORDERABLES Fi nal Result Performing Organization Address [facility] de Phone Number [facility] LAB MED/PATH SUPERIOR [address] [place] [address] * Homocysteine (04/20/2025 6:14 AM EDT) [facility] HOMOCYSTEINE,TOTAL 8.4 4.3 - 10.8 nmol/mL [facility] DPT OF LAB MED AND PAT+ Comment: (NOTE) ADDITIONAL INFORMATION Liquid Chromatography-Tandem Mass Spectrometry (LC-MS/MS) This test was developed and its performance characteristics determined by [facility] in a manner consistent with CLIA requirements. This test has not been cleared or approved by the U.S. Food and Drug Administration. Blood 04/20/2025 6:14 AM EDT 04/20/2025 7:23 AM EDT Krista Harris MD LAB BLOOD BKR ORDERABLE S Final Result [facility] DPT OF LAB MED AND PAT+ [address] [place] [address] * XR CERVICAL SPINE 4-5 VIEWS (04/19/2025 7:50 PM EDT) Anatomical Region Laterality Modality C-spine Computed Radiogr aphy 04/20/2025 7:56 AM EDT Impressions 04/20/2025 7:57 AM EDT Reversal of the normal cervical lordosis centered at C4-5 as noted on prior MRI. Vertebral body heights and disc space heights are preserved. No fracture or listhesis. No prevertebral soft tissue swelling. No abnormal motion between flexion-extension views. Narrative 04/20/2025 7:57 AM EDT XR CERVICAL SPINE 4-5 VIEWS Referring clinician's provided indication for this examination in [facility]: Pain COMPARISON: MRI cervical spine April 18, 2025. Procedure Note Sherice Posadas MD - 04/20/2025 XR CERVICAL SPINE 4-5 VIEWS Referring clinician's provided indication for this examination in [facility]:Pain COMPARISON: MRI cervical spine April 18, 2025. IMPRESSION: Reversal of the normal cervical lordosis centered at C4-5 as noted onprior MRI. Vertebral body heights and disc space heights are preserved. Nofracture or listhesis. No prevertebral soft tissue swelling. No abnormalmotion between flexion- extension views. Krista Harris MD IMG XR SPINE Final R esult * MRI ANGIO BRAIN (ARTERIAL & VENOUS PHASES) WITHOUT CONTRAST (04/19/2025 4:57 PM EDT) Anatomical Region Laterality Modality Head Magnetic Resonan ce 04/19/2025 7:17 PM EDT Impressions 04/20/2025 10:59 AM EDT 1. No occlusion, high-grade stenosis, or aneurysm of the major intracranial arteries. 2. No evidence of dural venous sinus thrombosis. ATTESTATION: Jude Pedro, as teaching physician have reviewed the images, if any, for this patient's exam, and if necessary, have edited the report originally created by Gómez Sims. Narrative 04/20/2025 10:59 AM EDT MRI ANGIO BRAIN (ARTERIAL & VENOUS PHASES) WITHOUT CONTRAST Referring clinician's provided indication for this examination in [facility]: * Dizziness, persistent/recurrent, cardiac or vascular cause suspected TECHNIQUE: MRI ANGIO BRAIN (ARTERIAL & VENOUS PHASES) WITHOUT CONTRAST COMPARISON: MRI brain 09/11/2022 FINDINGS: MRA HEAD: Anterior Circulation: Normal flow within the intracranial internal carotid arteries, anterior cerebral arteries and the middle cerebral arteries. Mild stenosis of the right greater than left carotid arteries through the carotid siphons. No severe stenosis, occlusion, aneurysm or arteriovenous malformation. An anterior communicating artery is present. Posterior Circulation: Normal flow within the intracranial vertebral arteries, basilar artery and posterior cerebral arteries. No severe stenosis, occlusion, aneurysm or arteriovenous malformation. Posterior communicating arteries are present bilaterally. MRV: Normal flow within the major intracranial venous structures. No evidence of thrombosis. Procedure Note Jude Camacho MD - 04/20/2025 MRI ANGIO BRAIN (ARTERIAL & VENOUS PHASES) WITHOUT CONTRAST Referring clinician's provided indication for this examination in [facility]: *Dizziness, persistent/recurrent, cardiac or vascular cause suspected TECHNIQUE: MRI ANGIO BRAIN (ARTERIAL & VENOUS PHASES) WITHOUT CONTRAST COMPARISON: MRI brain 09/11/2022 FINDINGS: MRA HEAD: Anterior Circulation: Normal flow within the intracranial internal carotidarteries, anterior cerebral arteries and the middle cerebral arteries.Mild stenosis of the right greater than left carotid arteries through thecarotid siphons. No severe stenosis, occlusion, aneurysm or arteriovenousmalformation. An anterior communicating artery is present. Posterior Circulation: Normal flow within the intracranial vertebralarteries, basilar artery and posterior cerebral arteries. No severestenosis, occlusion, aneurysm or arteriovenous malformation. Posteriorcommunicating arteries are present bilaterally. MRV: Normal flow within the major intracranial venous structures. Noevidence of thrombosis. IMPRESSION: 1. No occlusion, high-grade stenosis, or aneurysm of the majorintracranial arteries. 2. No evidence of dural venous sinus thrombosis. ATTESTATION: Jude Pedro, as teaching physician have reviewed theimages, if any, for this patient's exam, and if necessary, have edited thereport originally created by Gómez Sims. us Krista Harris MD IMG MR HEAD/NECK Final Result * EEG W/REC AWAKE&DROWSY ([id number]) (04/19/2025 12:57 PM EDT) Anatomical Region Laterality Modality EEG Impressions 04/19/2025 3:32 PM EDT This EEG, performed in the waking and drowsy states, shows occasional bilateral theta slowing, to which medications and drowsiness may contribute. There are no definite focal or epileptiform abnormalities. There are no previous EEGs available for comparison. ? INTERPRETED BY: Chuy Lubin MD Narrative 04/19/2025 3:32 PM EDT EEG Report - Inpatient ? [facility] Dept. of Neurology [address] [place] [address], [address] [place] [address] ? Name: Pamela Jimenez Age: 29 y.o. Date: 04/19/25 ? ? HISTORY: 29 yr old F PMH of anxiety, asthma, bipolar 1, spring-danlos syndrome, gastroparesis, migraines, POTS and PTSD with two weeks of weakness, transient vision changes, HUERTA and photophobia/phonophobia and gait disturbance ? CURRENT MEDICATIONS: No current facility-administered medications for this visit. No current outpatient medications on file. Facility-Administered Medications Ordered in Other Visits: acetaminophen (OFIRMEV) injection 1,000 mg, 1,000 mg, Intravenous, Q8H PRN, Viv Rosales MD, MPH albuterol 90 mcg/actuation inhaler 2 puff, 2 puff, Inhalation, Q6H PRN, Viv Rosales MD, MPH buprenorphine HCl Film 900 mcg, 900 mcg, Oral, BID, Viv Rosales MD, MPH cromolyn (GASTROCROM) 100 mg/5 mL oral solution 200 mg, 200 mg, Oral, AC & HS, Viv Rosales MD, MPH, 200 mg at 04/19/25 1154 diphenhydrAMINE (BENADRYL) capsule 25 mg, 25 mg, Oral, Once, Severino Russell MD, ALEXEY enoxaparin (LOVENOX) subcutaneous syringe 30 mg, 30 mg, Subcutaneous, Q24H, Alcira Delcid MD metoprolol succinate (TOPROL-XL) ER tablet 25 mg, 25 mg, Oral, Daily, Viv Rosales MD, MPH, 25 mg at 04/19/25 0956 norgestimate-ethinyl estradioL (ORTHO-CYCLEN) 0.25-0.035 mg per tablet 1 tablet, 1 tablet, Oral, Daily, Viv Rosales MD, MPH omeprazole (PriLOSEC) capsule 40 mg, 40 mg, Oral, BID Before Meals, Viv Rosales MD, MPH ondansetron (PF) (ZOFRAN) injection 4 mg, 4 mg, Intravenous, Q6H PRN, Viv Rosales MD, MPH, 4 mg at 04/19/25 1406 polyethylene glycol packet, 17 g, Oral, Daily PRN, Alcira Delcid MD pyRIDostigmine (MESTINON) tablet 60 mg, 60 mg, Oral, TID, Viv Rosales MD, MPH, 60 mg at 04/19/25 1406 senna (SENOKOT) tablet 2 tablet, 2 tablet, Oral, Nightly PRN, Alcira Delcid MD sodium chloride (NS) 0.9 % syringe flush 3 mL, 3 mL, Intravenous, PRN, Galileo Mohr MD, MS sodium chloride (NS) 0.9 % syringe flush 3 mL, 3 mL, Intravenous, PRN, Alcira Delcid MD ? DETAIL: This is a routine EEG with anterior temporal as well as standard 10-20 electrodes with impedances below 5 ohms. The record shows fair organization at rest. The waking background consists of predominantly 10-20 uV, 11 Hz poorly-sustained posterior alpha activity with good reactivity. There is moderate bilateral beta activity. There is occasional bilateral theta slowing. ? Drowsiness is characterized by attenuation of the posterior dominant rhythm, and bilateral slowing in the theta range. Stage II sleep is not achieved. ? Hyperventilation is not performed. Photic stimulation is not performed. EKG reveals an apparently normal sinus rhythm of ~50-60 beats per minute. ? us Galileo Mohr MD, MS NEUROLOGY ORDERABLES Final Result * (ABNORMAL) C-reactive protein, high sensitivity (04/19/2025 6:34 AM EDT) Pathologist [facility] CRP, HIGH SENSITIVITY 3.1(H) 0.0 - 3.0 mg/L [facility] Comment: For cardiac risk assessment, reference range is <3.0mg/L. For inflammation assessment, reference range is <10.0mg/L. Blood 04/19/2025 6:34 AM EDT 04/19/2025 7:22 AM EDT us Krista Harris MD LAB BLOOD BKR ORDERABLE S Final Result [facility] [address] [place] [address] * Comprehensive metabolic panel (04/19/2025 6:34 AM EDT) [facility] SODIUM 143 136 - 145 mmol/L [facility] Comment: POTASSIUM 4.2 3.4 - 5.0 mmol/L [facility] Comment: CHLORIDE 105 98 - 107 mmol/L [facility] Comment: CO2 26 22 - 31 mmol/L [facility] BUN 9 6 - 23 mg/dL [facility] CREATININE 0.74 0.50 - 1.20 mg/dL [facility] GLUCOSE 87 70 - 115 mg/dL [facility] ALBUMIN 4.2 3.5 - 5.2 g/dL [facility] TOTAL PROTEIN 7.2 6.0 - 8.0 g/dL [facility] CALCIUM 9.6 8.6 - 10.7 mg/dL [facility] ALKALINE PHOSPHATASE 53 40 - 130 U/L [facility] TOTAL BILIRUBIN 0.3 0.0 - 1.0 mg/dL [facility] AST 27 10 - 50 U/L [facility] ALT 19 10 - 50 U/L [facility] GLOBULIN 3.0 2.2 - 4.2 g/dL [facility] EGFR 114 >60 mL/min/1.7 3m2 [facility] Comment:Estimated glomerular filtration rate calculated using the CKD-EPI refit equation. ANION GAP 13 3 - 15 mmol/L [facility] Blood 04/19/2025 6:34 AM EDT 04/19/2025 7:22 AM EDT us Galileo Mohr MD, MS LAB BLOOD BKR [place] [address] * (ABNORMAL) TSH with reflex (04/19/2025 6:34 AM EDT) [facility] SCREENING PANEL: TSH 7.85(H) 0.27 - 4.20 uIU/mL [facility] Blood 04/19/2025 6:34 AM EDT 04/19/2025 7:22 AM EDT us Krista Harris MD LAB BLOOD [place]KR [place] [address] * Syphilis antibody screen (04/19/2025 6:34 AM EDT) [facility] SYPHILIS ANTIBODY Nonreactive Nonreactive [facility] Comment:Treponema pallidum I gG assay performed on Cadence Roman. Blood 04/19/2025 6:34 AM EDT 04/19/2025 7:22 AM EDT us Krista Harris MD LAB BLOOD BKR ORDERABLE S Final Result [facility] [address] [place] [address] * CBC and differential (04/19/2025 6:34 AM EDT) Only the most recent of2 resultswithin the time period is included. [facility] WBC 4.26 4.00 - 11.00 K/uL [facility] RBC 4.53 4.00 - 5.20 M/uL [facility] HGB 13.8 12.0 - 16.0 g/dL [facility] HCT 42.7 36.0 - 46.0 % [facility] PLT 208 150 - 450 K/uL [facility] MCV 94.3 80.0 - 100.0 fL [facility] MCH 30.5 27.0 - 31.0 pg [facility] MCHC 32.3 32.0 - 36.0 g/dL [facility] RDW 13.4 11.5 - 14.5 % [facility] MPV 11.4 8.4 - 12.0 fL [facility] NRBC 0.00 0.00 /100 WBCs [facility] ABSOLUTE NRBC 0.00 0.00 K/uL [facility] DIFF METHOD Auto [facility] NEUTS 55.0 48.0 - 76.0 % [facility] LYMPHS 35.9 18.0 - 41.0 % [facility] MONOS 8.2 4.0 - 11.0 % [facility] EOS 0.5 0.0 - 5.0 % [facility] BASOS 0.2 0.0 - 1.5 % [facility] Granulocytes, immature (%) 0.2 0.0 - 0.9 % [facility] ABSOLUTE NEUTS 2.34 1.92 - 7.60 K/uL [facility] ABSOLUTE LYMPHS 1.53 0.72 - 4.10 K/uL [facility] ABSOLUTE MONOS 0.35 0.16 - 1.10 K/uL [facility] ABSOLUTE EOS 0.02 0.00 - 0.50 K/uL [facility] ABSOLUTE BASOS 0.01 0.00 - 0.15 K/uL [facility] Granulocytes, immature 0.01 0.00 - 0.09 K/uL [facility] Blood 04/19/2025 6:34 AM EDT 04/19/2025 7:22 AM EDT us Galileo Mohr MD, MS LAB BLOOD BKR ORDERABLES F inal Result [facility] [address] [place] [address] * Free T4 (04/19/2025 6:34 AM EDT) FREE T4 0.9 0.8 - 1.8 ng/dL [facility] 04/19/2025 6:34 AM EDT 04/19/2025 7:22 AM EDT us Mercedez Perez MD LAB BLOOD BKR ORDERABLES Final Result Performing Organization Address [facility] [place] [address] * Folate (04/19/2025 6:34 AM EDT) FOLIC ACID 12.2 3.1 - 17.5 ng/mL [facility] Comment: EXPECTED VALUES: NORMAL 3.1 - 17.5 ng/mL BORDERLINE DEFICIENT 2.2 - 3.0 ng/mL DEFICIENT < 2.2 ng/mL EXCESSIVE > 17.5 ng/mL Blood 04/19/2025 6:34 AM EDT 04/19/2025 7:22 AM EDT us Krista Harris MD LAB BLOOD BKR ORDERABLE S Final Result Performing Organization Address [facility] [place] [address] * Vitamin B12 (04/19/2025 6:34 AM EDT) VITAMIN B12 337 211 - 946 pg/mL [facility] Blood 04/19/2025 6:34 AM EDT 04/19/2025 7:22 AM EDT us Krista Harris MD LAB BLOOD BKR ORDERABLE S Final Result Performing Organization Address [facility] [place] [address] * CPK (creatine kinase) (04/19/2025 6:34 AM EDT) CREATINE KINASE 56 50 - 185 U/L [facility] Blood 04/19/2025 6:34 AM EDT 04/19/2025 7:22 AM EDT us Krista Harris MD LAB BLOOD BKR ORDERABLE S Final Result Performing Organization Address City/[facility]/ZIP Co de Phone Number [address] [address] * (ABNORMAL) Urinalysis w/reflex Urine Culture (04/18/2025 11:39 PM EDT) COLOR STRAW [facility] CLARITY Clear [facility] GLUCOSE Negative Negative [facility] BILI Negative Negative [facility] KETONES Negative Negative [facility] SPECIFIC GRAVITY 1.005 1.001 - 1.030 [facility] BLOOD 3+(A) Negative [facility] PH 8.0 5.0 - 8.0 [facility] Protein-UA Negative Negative [facility] UROBILINOGEN Negative Negative [facility] NITRITE Negative Negative [facility] Leukocyte esterase, ur Negative Negative [facility] RBC 6-10(A) 0 - 2 /hpf [facility] WBC 10-20(A) 0 - 9 /hpf [facility] SQUAMOUS CELLS Trace /hpf [facility] Urine (Urine) 04/18/2025 11: 39 PM EDT 04/19/2025 12:15 AM EDT us Galileo Mohr MD, MS LAB URINE ORDERABLES Final Result Performing Organization Address City/[facility]/ZIP Co de Phone Number [address] [address] * Urine Culture (04/18/2025 11:39 PM EDT) Special Requests No Special Requests Reflexed from [id number] 04/19/2025 12:26 AM EDT [facility] Urine Culture NO GROWTH 04/20/2025 12:30 PM EDT [facility] Urine 04/18/2025 11:3 9 PM EDT 04/19/2025 12:15 AM EDT us Galileo Mohr MD, MS LAB MICROBIOLOGY CULTURE O RDERABLES Final Result Performing Organization Address [facility] [place] [address] * HCG, urine (04/18/2025 11:23 PM EDT) URINE TEST Negative Negative [facility] Urine (Urine) 04/18/2025 11: 23 PM EDT 04/19/2025 12:16 AM EDT us Galileo Mohr MD, MS LAB URINE ORDERABLES Final Result Performing Organization Address [facility] [place] [address] * MRI CERVICAL SPINE (NEURO) WITH AND WITHOUT CONTRAST (04/18/2025 5:11 PM EDT) Anatomical Region Laterality Modality C-spine Magnetic Resonan ce 04/18/2025 5:26 PM EDT Impressions 04/18/2025 5:43 PM EDT No evidence of demyelinating disease in the cervical spine. Reversed cervical lordosis ATTESTATION: Denis Pedro, as teaching physician have reviewed the images, if any, for this patient's exam, and if necessary, have edited the report originally created by Gómez Sims. Narrative 04/18/2025 5:43 PM EDT MRI CERVICAL SPINE (NEURO) WITH AND WITHOUT CONTRAST Referring clinician's provided indication for this examination in Epic: * Demyelinating disease TECHNIQUE: MRI CERVICAL SPINE (NEURO) WITH AND WITHOUT CONTRAST Multi-sequence, multi-planar MRI of the cervical spine was performed with and without intravenous contrast. COMPARISON: MRI cervical spine 09/11/2022 FINDINGS: CERVICAL SPINE: Alignment and Vertebrae: Straightening and partial reversal of the normal cervical lordosis. No compression fracture. Marrow: No bone marrow replacing lesion. Discs and Endplates: Normal intervertebral disc heights and signal. No. Spinal canal or neural foraminal abscess. Spinal Cord: No spinal cord compression or signal abnormality. Contrast: No abnormal enhancement. Soft Tissue: Normal. No prevertebral edema. Procedure Note Denis Perez MD, MPH - 04/18/2025 MRI CERVICAL SPINE (NEURO) WITH AND WITHOUT CONTRAST Referring clinician's provided indication for this examination in Epic: *Demyelinating disease TECHNIQUE: MRI CERVICAL SPINE (NEURO) WITH AND WITHOUT CONTRAST Multi-sequence, multi-planar MRI of the cervical spine was performed withand without intravenous contrast. COMPARISON: MRI cervical spine 09/11/2022 FINDINGS: CERVICAL SPINE: Alignment and Vertebrae: Straightening and partial reversal of the normalcervical lordosis. No compression fracture. Marrow: No bone marrow replacing lesion. Discs and Endplates: Normal intervertebral disc heights and signal. No.Spinal canal or neural foraminal abscess. Spinal Cord: No spinal cord compression or signal abnormality. Contrast: No abnormal enhancement. Soft Tissue: Normal. No prevertebral edema. IMPRESSION: No evidence of demyelinating disease in the cervical spine. Reversed cervical lordosis ATTESTATION: Denis Pedro, as teaching physician have reviewed theimages, if any, for this patient's exam, and if necessary, have edited thereport originally created by Gómez Sims. us Galileo Mohr MD, MS IMG MR XSPECIALTY Final Re sult * LFTs (hepatic panel) (04/18/2025 4:04 PM EDT) ALBUMIN 4.2 3.5 - 5.2 g/dL [facility] TOTAL BILIRUBIN <0.2 0.0 - 1.0 mg/dL [facility] DIRECT BILIRUBIN <0.1 mg/dL [facility] ALKALINE PHOSPHATASE 53 40 - 130 U/L [facility] AST 36 10 - 50 U/L [facility] ALT 19 10 - 50 U/L [facility] TOTAL PROTEIN 7.1 6.0 - 8.0 g/dL [facility] GLOBULIN 2.9 2.2 - 4.2 g/dL [facility] Blood 04/18/2025 4:04 PM EDT 04/18/2025 4:35 PM EDT us Galileo Mohr MD, MS LAB BLOOD BKR ORDERABLES F inal Result Performing Organization Address City/[facility] [place] [address] * (ABNORMAL) Lipase (04/18/2025 4:04 PM EDT) LIPASE 73(H) 13 - 60 U/L [facility] Blood 04/18/2025 4:04 PM EDT 04/18/2025 4:35 PM EDT us Galileo Mohr MD, MS LAB BLOOD BKR ORDERABLES F inal Result Performing Organization Address [facility] [place] [address] * US BEDSIDE (04/18/2025 3:26 PM EDT) Narrative Galileo Mohr MD, MS - 04/18/2025 3:26 PM EDT Galileo Mohr MD, MS 05/09/2025 6:46 AM Bedside Ultrasound Date/Time: 04/18/2025 3:26 PM Performed by: Lexi Szymanski PA-C Authorized by: Galileo Mohr MD, MS Exam Type: Procedural Guidance Procedural Guidance: Bedside Ultrasound was used to perform Peripheral IV Placement. Please see separately documented procedure note to see details of procedure. Accession Number: [id number] us Galileo Mohr MD, MS IMG POINT OF CARE EXAMS Fi nal Result * Peripheral IV (04/18/2025 3:26 PM EDT) Narrative Galileo Mohr MD, MS - 04/18/2025 3:26 PM EDT Galileo Mohr MD, MS 06/24/2025 4:55 PM Peripheral IV Date/Time: 04/18/2025 3:26 PM Performed by: Lexi Szymanski PA-C Authorized by: Galileo Mohr MD, MS Indications: Indications: Vascular access Local anesthesia used?: No Procedure details: Preparation: Skin prepped with alcohol Skin prep agent dried: Skin prep agent completely dried prior to procedure Ultrasound guidance: dynamic Images: Images saved: Yes Galileo Mohr MD, MS IV THERAPY ORDERABLES Cadence l Result from Last 3 Months Insurance [facility] & B [place] B [facility]IC[facility] PART A & [place] B Member Subscriber Plan / Payer (Ef fective 2017-Present) Name:Pamela Jimenez Member ID:[id number] Relation to Subscriber:Self Name:Pamela Jimenez Subscriber ID:[id number] Payer ID:[id number] Group ID:Not on file Type:Medicare Address: [email or web address] [facility] [address] [place] [phone] [place] A & B Advance Directives For more information, please contact: [phone] (9AM - 5PM [facility], Friday-Friday) * Full Code (Latest Code Status on File) Date Activated Date Inactivated Comments 04/18/2025 7:16 PM Question Answer Comments Code Status Confirmed With: Patient Healthcare Agents on File Name Relationship Healthcare Agent Relationshi p Communication Donny Jimenez Father Other (no proxy form on file ) Pedro Deutsch Life Partner Other (no proxy form on miriam e) Care Teams Delineator Relationship Specialty Start Date End Date Arminda Hector MD [address] [place] [id number] PCP - General Internal Medicine 08/09/16 Jomar Renteria MD, MPH [address] [place] [address] [address] [place] [address] [email or web address] 11/20/21 Additional Source Comments The information contained in this document represents components of the legal health record. It is not the complete legal health record.[facility]
--- OUTSIDE RECORDS SUMMARY | 2025-07-13 14:11 | XMS_ITS | Encounter Summary ---
Author Organization [employer] Address [address] [place] [address] [address] [place] [address] Care Team Providers Care Chair Caner Name Role Phone Arminda Hector MD Primary Care Provider [phone] Encounter Details Date Type Department Care Team (Late st Contact Info) Description 04/02/2025 Orders Only [facility] [address] [place] [address] Arminda Hector MD [address] [place] [address] Social History Tobacco Use Types Packs/Day Years Used Date Smoking Tobacco: Never Smokeless Tobacco: Never Alcohol Use Standard Drinks/Week Comments Never 0 (1 standard drink = 0.6 oz pur e alcohol) Alcohol Answer Date Recorded How often do you have a drink containing alcohol ? 0 03/30/2025 How many drinks containing a lcohol do you have on a typical day when you are drinking? 0 03/30/2025 How often do you have six or more drinks on one occasion? 0 03/30/2025 Depression Answer Date Recorded Patient Health Questionnaire-9 Score 22 11/30/2024 Patient Health Questionnaire-9 Score 22 11/30/2024 Last PHQ-9: Questionnaire Data Not on file 0 11/30/2024 Housing Stability Answer Date Recorded What is your housing situation today? I have kamaljit more 03/30/[address] you li ve. Do you have problems with any of the following? I am not sure 03/30/2025 Food Insecurity Answer Date Recorded Within the past 12 months, y ou worried that your food would run out before you got money to buy more: Never True 2024 Within the past 12 months,th e food you bought just didn't last and you didn't have enough money to get more: Sometimes True 03/30/2025 Transportation Answer Date Recorded In the past 12 months, has l ack of transportation kept you from medical appts, meetings, work or from getting things needed for daily living? Yes, it has kept me from medical appointments or getting medications.;Yes, it has kept me from non-medical meetings, work, or getting things that I need 03/30/2025 Utilities Answer Date Recorded In the past 12 months, has t he electric, gas, oil or water company threatened to shut off services in your home? No 03/30/2025 Depression Answer Date Recorded Patient Health Questionnaire-2 Score 5 11/30/2024 Internet Access Answer Date Recorded Internet Access Q1 Yes 03/30/2025 Internet Access Q2 Not on file 03/30/2025 Comments Unknown Sex and Gender Information Value Date Recorded Sex Assigned at Female 11/26/2022 4:35 PM EDT Legal Sex Female 8:36 PM EDT Gender Identity Female 11/26/2022 4:35 PM EDT Sexual Orientation Choose not to disclose 2022 4:35 PM EDT documented as of this encounter Plan of Treatment Upcoming Encounters Date Type Department Care Team (Late st Contact Info) Description 08/09/2025 12:30 PM EST Office Visit [facility] MEDICAL [address] [place] [address] Arminda Hector MD [address] [place] [address] documented as of this encounter Procedures Procedure Name Priority Date/Time Associated Diagnosis Comments MRI BRAIN WO CONTRAST Routine 04/01/2025 7:03 AM EDT documented in this encounter Results * MRI BRAIN WO CONTRAST (04/01/2025 7:03 AM EDT) Anatomical Region Laterality Modality Magnetic Resonan ce us Arminda Hector MD IMG MRI PROCEDURES Final Result documented in this encounter Visit Diagnoses Not on filedocumented in this encounter Additional Health Concerns Assessment Noted Time PHQ-9 Depression Total Score: 22 025 12:34 PM EDT documented as of this encounter Care Teams Chair Caner Relationship Specialty Start Date End Date Arminda Hector MD [address] [place] [address] PCP - General Internal Medicine 03/08/24 documented as of this encounter
--- OUTSIDE RECORDS SUMMARY | 2025-07-13 14:11 | XMS_ITS | Encounter Summary ---
Author Organization [employer] Address [address] [place] [address] 7[address] [place] [address] Care Team Providers Care Human Factors Advisor Lead Name Role Phone Arminda Hector MD Primary Care Provider [phone] Encounter Details Date Type Department Care Team (Late st Contact Info) Description 04/01/2025 Orders Only [facility] [address] [place] [address] Arminda Hector MD [address] [place] [address] Social History Tobacco Use Types Packs/Day Years [...] Description 08/09/2025 12:30 PM EST Office Visit [facility] MEDICAL [address] [place] [address] Arminda Hector MD [address] [place] [address] documented as of this encounter Procedures Procedure Name Priority Date/Time Associated Diagnosis Comments CT HEAD WO CONTRAST Routine 03/31/2025 11:45 AM EDT documented in this encounter Results * CT HEAD WO CONTRAST (03/31/2025 11:45 AM EDT) Anatomical Region Laterality Modality Computed Tomogra phy us Arminda Hector MD IMG CT PROCEDURES Final Result documented in this encounter Visit Diagnoses Not on filedocumented in this encounter Additional Health Concerns Assessment Noted Time PHQ-9 Depression Total Score: 22 025 12:34 PM EDT documented as of this encounter Care Teams Human Factors Advisor Lead Relationship Specialty Start Date End Date Arminda Hector MD [address] [place] [address] PCP - General Internal Medicine 03/08/24 documented as of this encounter
--- OUTSIDE RECORDS SUMMARY | 2025-07-13 14:11 | XMS_ITS | Encounter Summary ---
Author Organization [facility] Address [address] [facility] [address] [place] [address] Phone Care Team Providers Care Firestop/Containment Worker Name Role Phone Arminda Hector MD Primary Care Provider [phone] Jomar Renteria MD, MPH Unavailable [phone] Encounter Details Date Type Department Care Team (Late Contact Info) Description 07/29/2022 Procedure Pass [facility] [address] [place] [address] Social History Tobacco Use Types Packs/Day Years Used Date Smoking Tobacco: Never Smokeless Tobacco: Never Alcohol Use Standard Drinks/Week Comments No 0 (1 standard drink = 0.6 oz pur e alcohol) Comments Unknown Sex and Gender Information Value Date Recorded Sex Assigned at Not on file Legal Sex Female 10:03 AM EDT Gender Identity Not on file Sexual Orientation Not on file documented as of this encounter Plan of Treatment Upcoming Encounters Date Type Department Care Team (Late Contact Info) Description 07/28/2025 1:30 PM EST Office Visit [facility] [address] [facility] 9th [place] [address] Nasir Post MD [address] [place] [phone] Rose [email or web address] 01/23/2026 11:30 AM EDT Office Visit [facility] Neurology at [facility] [address] [facility] [address] [place] [address] Galileo Lyons MD, PhD [address] [facility] [place] [address] [email or web address] documented as of this encounter Visit Diagnoses Not on filedocumented in this encounter Care Teams Firestop/Containment Worker Relationship Specialty Start Date End Date Arminda Hector MD [address] [place] [address] [email or web address] PCP - General Internal Medicine 08/09/16 Jomar Renteria MD, MPH [address] [place] [address] [address] [place] [address] [email or web address] 11/20/21 documented as of this encounter Additional Source Comments The information contained in this document represents components of the legal health record. It is not the complete legal health record.[facility]
--- OUTSIDE RECORDS SUMMARY | 2025-07-13 14:11 | XMS_ITS | Clinical Summary ---
Author Organization [employer] Address [address] [place] [address] 7 [place] [address] Care Team Providers Care Information Systems Manager Name Role Phone Arminda Hector MD Primary Care Provider [phone] Allergies Active Allergy Reactions Criticality Noted Date Comments Codeine 10/02/2017 Other reaction(s): GI Upset, vomiting Pt mother states pt gets upset stomach but denies rash, diff. breathing, vomiting or diarrhea Cyclobenzaprine 10/02/2017 Other reaction(s): Delirium, mentally spacey + nausea, Other (See Comments) Feels spacey Gluten Meal Unknown 01/22/2023 ALL Gluten Other Reaction(s): pt. has celiac's disease Ibuprofen Itching 10/02/2017 Other reaction(s): felt like she was burning up Agitated and overheated Metoclopramide 11/27/2022 Other reaction(s): itching, mood swings felt hot all over Scopolamine Anaphylaxis High 10/02/2017 Other reaction(s): anaphylaxis?, agitation patch Medications albuterol (2.5 MG/3ML) 0.083% nebulizer solution 3 mL. 7 Active cetirizine (ZyrTEC) 10 MG tablet 1 tablet in the morning. Active clindamycin (Cleocin T) 1 % lotion APPLY AM AND PM TO BUTTOCKS FOR ACNE 2 Active cromolyn (Gastrocrom) 100 MG/5ML solution Take 200 mg by mouth in the morning and 200 mg at noon and 200 mg in the evening and 200 mg before bedtime. 0 Active EPINEPHrine (EpiPen 2-Nathaniel) 0.3 MG/0.3ML injection syringe as directed Injection As needed for allergic reaction 7 Active famotidine (Pepcid) 20 MG tablet twice a day. Active lamoTRIgine (LaMICtal) 25 MG tablet TAKE 1 & 1/2 TABLETS BY MOUTH DAILY 3 Active meclizine (Antivert) 12.5 MG tablet 2 tablets. Active metaxalone (Skelaxin) 800 MG tablet Take 800 mg by mouth in the morning and 800 mg at noon and 800 mg in the evening. Active methenamine hippurate (Hiprex) 1 g tablet 3 Active midodrine (Proamatine) 2.5 MG tablet 3 Active Multiple Vitamins-Minera ls (Multi Complete) capsule Orally Active naloxone (Narcan) 4 mg/0.1 mL nasal spray See Instructions, SPRAY ONCE INTO ONE NOSTRIL MAY REPEAT Q 2 TO 3 MINUTES IN ALTERNATE NOSTRILS IF NO RESPONSE, # 2 each, 1 Refills, Maintenance, 12/14/20 15:02:00 EDT, [place], [facility]/pharmacy #[id number], Partial fill upon patient request if the prescription i... 1 Active naproxen sodium (Anaprox DS) 550 MG tablet 1 tablet. 5 Active norgestimate-et hinyl estradiol (Ortho-Cyclen) 0.25-35 MG-MCG tablet 3 Active sucralfate (Carafate) 1 g tablet TAKE 1 TABLET BY MOUTH EVERY DAY ON AN EMPTY STOMACH ONCE A DAY 8 Active pyridostigmine (Mestinon) 60 MG tablet Take 60 mg by mouth 3 times daily. 3 Active Belbuca [address] 1 FILM BY MOUTH EVERY 12 HOURS FOR CHRONIC PAIN 4 Active morphine (MSIR) 15 MG tablet 1/2 tab Orally as needed Active mirtazapine (Remeron) 7.5 MG tabletIndicatio ns:Fatigue, unspecified type Take 1 tablet (7.5 mg) by mouth at bedtime. 30 tablet 2 4 Active Additional Information Patient not taking.Reported on 05/06/2025 Cannabinoids (medical cannabis) Take by mouth. 9 Active B Complex-Folic Acid (SUPER B COMPLEX MAXI PO) Take by mouth. 2 Active Vitamin D, Ergocalciferol, 99319 units capsule Take 1 capsule by mouth. 2 Active albuterol 108 (90 Base) MCG/ACT inhaler TAKE 2 PUFFS BY MOUTH EVERY 4 HOURS NEEDED FOR SHORTNESS OF BREATH 4 Active LORazepam (Ativan) 0.5 MG tabletIndicatio ns:Anxiety Take 1 tablet (0.5 mg) by mouth if needed in the morning and at bedtime for anxiety for up to 7 days. PRN 14 tablet 5 Active omeprazole (PriLOSEC) [address] capsuleIndicati ons:Gastropares is TAKE 1 CAPSULE BY MOUTH ONCE DAILY 90 capsule 3 5 Active metoprolol succinate XL (Toprol-XL) 25 MG 24 hr tabletIndicatio ns:POTS (postural orthostatic tachycardia syndrome) TAKE 1 TABLET BY MOUTH EVERY DAY 90 tablet 5 Active Active Problems Patient Care Coordination No te Formatting of this note migh t be different from the original. Attempted to reach pt at time of our scheduled TH appt, no answer but able to leave message on voicemail that I would try her again in a few minutes. Tried again to reach pt but again no answer left message on voicemail encouraging pt to call the health center to reschedule the missed appointment. 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 Gastroparesis 11/27/2022 POTS (postural orthostatic tachycardia syndrome) 11/27/2022 Systemic involvement of connective tissue, unspe cified 11/27/2022 Small fiber neuropathy 11/27/2022 Encounters Date Type Department Care Team Description 05/18/2025 Refill [facility] MEDICAL [address] [place] [address] Jammie Rodriguez CNP POTS (postural orthostatic tachycardia syndrome) 05/06/2025 12:30 PM EDT Office Visit [address] [address] Arminda Hector MD Elevated TSH (Primary Dx); Gastroparesis; Bipolar disorder in partial remission, most recent episode unspecified type (CMS/HCC); Chronic fatigue, unspecified; Iron deficiency; Low testosterone; Celiac disease; EDS (Grecia-Danlos syndrome); POTS (postural orthostatic tachycardia syndrome); Autonomic dysfunction; Mast cell activation syndrome (CMS/HCC); Small fiber neuropathy 04/28/2025 Telephone [facility] [address] [place] [address] Arminda Hector MD ER Follow-up 04/15/2025 Telephone [facility] Information Management [address] [place] [address] Arminda Hector MD Hospital Follow-up from Last 3 Months Immunizations Immunization Administration Dates Next Due DTP 1997,1997,1997 DTaP 03/18/2002,09/12/1998 HPV 9-Valent 11/18/2007,07/14/2007 Hep B, Adolescent or Pediatric 07/14/2007,2006,02/17/1998 Hib (PRP-T) 09/12/1998, 8,1997,06/27 IPV 03/18/2002,1997,1997 Influenza injectable quadriv alent preservative free 07/10/2020 Influenza, IIV3, injectable 08/15/2021, 7 MMR 03/18/2002,05/10/1998 Meningococcal MCV4P ACYW-135 05/15/2007 Polio, Unspecified 05/23/1998 TD (adult), 2 Lf tetanus tox oid, preservative free, adsorbed 05/10/1998 Tdap 05/15/2007 Varicella 05/08/2009,05/10/1998 Family History Medical History Relation Name Comments Alcohol abuse Maternal Grandfather Bipolar disorder Maternal Grandmother Ankylosing spondylitis Mother uses cane Relation Name Status Comments Father Alive Maternal Grandfather Maternal Grandmother Mother Alive Social History Tobacco Use Types Packs/Day Years Used Date Smoking Tobacco: Never Smokeless Tobacco: Never Tobacco Cessation:Counseling Given: Not Answered Alcohol Use Standard Drinks/Week Comments Never 0 [...] Q2 Not on file 03/30/2025 Comments Unknown Intention Date Recorded No desire to become (finding) 0 11/30/2024 Sex and Gender Information Value Date Recorded Sex Assigned at Female 11/26/2022 4:35 PM EDT Legal Sex Female 8:36 PM EDT Gender Identity Female 11/26/2022 4:35 PM EDT Sexual Orientation Choose not to disclose 2022 4:35 PM EDT Last Filed Vital Signs Vital Sign Reading Time Taken Comments Blood Pressure 114/76 05/06/2025 12:53 PM EDT Pulse 58 05/06/2025 12:53 PM EDT Temperature 36.3 C (97.3 F) 05/06/2025 12:53 PM EDT Respiratory Rate 16 05/06/2025 12:53 PM EDT Oxygen Saturation 98% 05/06/2025 12:53 PM EDT Inhaled Oxygen Concentration - - Weight 49 kg (108 lb) 03/30/2025 12:30 PM EDT Height 157.5 cm (5' 2 ) 03/30/2025 12:30 PM EDT Body Mass Index 19.75 03/30/2025 12:30 PM EDT Plan of Treatment Upcoming Encounters Date Type Department Care Team (Late st Contact Info) Description 08/09/2025 12:30 PM EST Office Visit [facility] MEDICAL [address] [place] [address] Arminda Hector MD [address] [place] [address] Health Maintenance Due Date Last Done Comments HIV Screening 1997 Lipid Panel 1997 HPV Vaccines (3 - 2-dose series) 02/10/2008 11/18/2007, 07/14/2007 Hepatitis C Screening 2015 Pneumococcal Vaccine: Pediatrics (0 to 5 Years) and At-Risk Patients (6 to 49) Years (1 of 2 - PCV) 2016 DTaP/Tdap/Td Vaccines (7 - Td or Tdap) 05/15/2017 05/15/2007, 03/18/2002, 09/12/1998, Additional history exists Pap Smear 11/10/2022 11/11/2019 COVID-19 Vaccine (3 - season) 2025 12/04/2020, 11/04/2020 Influenza Vaccine (#1) 2025 , 07/10/2020, 07/03/2017 Depression Monitoring 06/02/2025 11/30/2024, 025 Disability Screening 11/30/2025 11/30/2024 Family Planning (PISQ) 11/30/2025 11/30/2024 Alcohol/Substance Use Screening 03/30/2026 03/30/2025 SDOH Screening 03/30/2026 03/30/2025 Tobacco Screening 05/06/2026 05/06/2025 Zoster Vaccines (1 of 2) 2047 RSV Patients and Patients Aged 60 years or older (1 - 1-dose 75+ series) 2072 HIB Vaccines Completed 09/12/1998, 01/1998, 1997, Additional history exists IPV Vaccines Completed 03/18/2002, 05/09, 1997, Additional history exists Meningococcal Vaccine Aged Out 05/15/2007 No alan esdras eligible based on patient's age to complete this topic Hepatitis B Vaccines Completed 07/14/2007, 05/15/2007, 02/17/1998 Hepatitis A Vaccines Aged Out No long er eligible based on patient's age to complete this topic Meningococcal B Vaccine Aged Out No l onger eligible based on patient's age to complete this topic RSV under 20 months Aged Out No longe r eligible based on patient's age to complete this topic Rotavirus Vaccines Aged Out No longer eligible based on patient's age to complete this topic Procedures Procedure Name Priority Date/Time Associated Diagnosis Comments PAP SMEAR Routine 11/11/2019 12:00 AM EST from Last 3 Months or Most Recently Relevant to Health Maintenance Results * Pap Smear (11/11/2019 12:00 AM EST) Swab [facility] Provider LAB CYTOLOGY ORDERABLES F inal Result from Last 3 Months or Most Recently Relevant to Health Maintenance Insurance MEDICARE [facility] Care Teams Information Systems Manager Relationship Specialty Start Date End Date Arminda Hector MD [address] [place] [address] PCP - General Internal Medicine 03/08/24
--- OUTSIDE RECORDS SUMMARY | 2025-07-13 14:11 | XMS_ITS | Encounter Summary ---
Author Organization [employer] Address [address] [place] [address] 7t [place] [address] Care Team Providers Care Justice Court Judge Name Role Phone Arminda Hector MD Primary Care Provider [phone] Encounter Details Date Type Department Care Team (Late st Contact Info) Description 04/06/2025 Orders Only [facility] [address] [place] [address] Arminda Hector MD [address] [place] [address] Social History Tobacco Use Types Packs/Day Years [...] Description 08/09/2025 12:30 PM EST Office Visit [facility] MEDICAL [address] [place] [address] Arminda Hector MD [address] [place] [address] documented as of this encounter Procedures Procedure Name Priority Date/Time Associated Diagnosis Comments MRI BRAIN W CONTRAST Routine 04/06/2025 3:36 PM EDT documented in this encounter Results * MRI BRAIN W CONTRAST (04/06/2025 3:36 PM EDT) Anatomical Region Laterality Modality Magnetic Resonan ce us Arminda Hector MD IMG MRI PROCEDURES Final Result documented in this encounter Visit Diagnoses Not on filedocumented in this encounter Additional Health Concerns Assessment Noted Time PHQ-9 Depression Total Score: 22 025 12:34 PM EDT documented as of this encounter Care Teams Justice Court Judge Relationship Specialty Start Date End Date Arminda Hector MD [address] [place] [address] PCP - General Internal Medicine 03/08/24 documented as of this encounter
--- OUTSIDE RECORDS SUMMARY | 2025-07-13 14:11 | XMS_ITS | Encounter Summary ---
Author Organization [facility] Address [address] [facility] [address] [place] [address] Phone Care Team Providers Care Animal Nutrition Teacher Name Role Phone Arminda Hector MD Primary Care Provider [phone] Jomar Renteria MD, MPH Unavailable [phone] Encounter Details Date Type Department Care Team (Late Contact Info) Description 07/29/2022 Procedure Pass [facility] Rad[facility] [address] [place] [address] Social History Tobacco Use Types Packs/Day Years [...] PM EST Office Visit [facility] [address] [facility] 9th [place] [address] Nasir Post MD [address] [place] [address] [place] [email or web address] 01/23/2026 11:30 AM EDT Office Visit [facility] Neurology at [facility] [address] [facility] [address] [place] [address] Galileo Lyons MD, PhD [address] [facility] [place] [address] [email or web address] documented as of this encounter Visit Diagnoses Not on filedocumented in this encounter Care Teams Animal Nutrition Teacher Relationship Specialty Start Date End Date Arminda Hector MD [address] [place] [address] [email or web address] PCP - General Internal Medicine 08/09/16 Jomar Renteria MD, MPH [address] [place] [address] 9 [place] [address] [email or web address] Gastroenterology 11/20/21 documented as of this encounter Additional Source Comments The information contained in this document represents components of the legal health record. It is not the complete legal health record.[facility]
--- OUTSIDE RECORDS SUMMARY | 2025-07-13 14:12 | XMS_ITS | Encounter Summary ---
Author Organization [facility] Address [address] [place] [address] Phone Care Team Providers Care System Administration Manager Name Role Phone Arminda Hector MD Primary Care Provider [phone] Arminda Hector MD Unavailable [phone] Jomar Renteria MD, MPH Unavailable [phone] Encounter Details Date Type Department Care Team (Latest Contact Info) Description 01/27/2018 Transcribe Orders [facility] [address] [facility] 2nd [place] [address] Tanya Jimenes, PA [address] [place] [address] Abdominal pain, unspecified abdominal location (Primary Dx); Gastroesophageal reflux disease, esophagitis presence not specified; Weight loss Social History Tobacco Use Types Packs/Day Years [...] Description 07/28/2025 1:30 PM EST Office Visit [facility] [address]th [place] [address] Nasir Post MD [address] [place] [address] [email or web address] 01/23/2026 11:30 AM EDT Office Visit [facility] Neurology at [place] [address] [place] [address] Galileo Lyons MD, PhD [address] [facility] [place] [address] [email or web address] documented as of this encounter Results * Vitamin E (01/27/2018 12:47 PM EDT) VIT E, A-TOCOPHEROL 10.5 5.5 - 17.0 mg/L [facility] Comment: (NOTE) ADDITIONAL INFORMATION This test was developed and its performance characteristics determined by [facility] in a manner consistent with CLIA requirements. This test has not been cleared or approved by the U.S. Food and Drug Administration. Blood 01/27/2018 12:4 7 PM EDT 01/27/2018 12:58 PM EDT us Tanya LEES LAB BLOOD ORDERABLES Final Result [facility] [address] [place] [address] * Magnesium (01/27/2018 12:47 PM EDT) MAGNESIUM 2.1 1.6 - 2.6 mg/dL [facility] Blood 01/27/2018 12:4 7 PM EDT 01/27/2018 12:58 PM EDT us Tanya LEES LAB BLOOD BKR ORDERABLES Fi nal Result Performing Organization Address [facility] Co de Phone Number [address] [address] * Zinc (01/27/2018 12:47 PM EDT) ZINC 0.78 0.66 - 1.10 mcg/mL [facility] Comment: (NOTE) ADDITIONAL INFORMATION This test was developed and its performance characteristics determined by [facility] in a manner consistent with CLIA requirements. This test has not been cleared or approved by the U.S. Food and Drug Administration. Blood 01/27/2018 12:4 7 PM EDT 01/27/2018 12:58 PM EDT us Tanya LEES LAB BLOOD ORDERABLES Final Result Performing Organization Address [facility] de Phone Number [facility] [address] [place] [address] * Vitamin B12 (01/27/2018 12:47 PM EDT) VITAMIN B12 315 232 - 1,245 pg/mL [facility] Comment:The reference range had been changed on December 19, 2017 from 243 - 894pg/mL to 232 - 1245 pg/mL. Blood 01/27/2018 12:4 7 PM EDT 01/27/2018 12:58 PM EDT us Tanya LEES LAB BLOOD BKR ORDERABLES Fi nal Result Performing Organization Address [facility] Co de Phone Number [address] [address] * (ABNORMAL) 25-OH vitamin D (01/27/2018 12:47 PM EDT) 25 OH VIT D (TOTAL) 25(L) 30 - 1,000 ng/mL [facility] Blood 01/27/2018 12:4 7 PM EDT 01/27/2018 12:58 PM EDT Tanya LEES LAB BLOOD BKR ORDERABLES Fi nal Result Performing Organization Address [facility] de Phone Number [address] [address] * Vitamin A (01/27/2018 12:47 PM EDT) Pathologist [facility] VITAMIN A 62.8 32.5 - 78.0 mcg/dL [facility] Comment: (NOTE) ADDITIONAL INFORMATION This test was developed and its performance characteristics determined by [facility] in a manner consistent with CLIA requirements. This test has not been cleared or approved by the U.S. Food and Drug Administration. Blood 01/27/2018 12:4 7 PM EDT 01/27/2018 12:58 PM EDT Tanya LEES LAB BLOOD ORDERABLES Final Result Performing Organization Address [facility] de Phone Number [facility] [address] [place] [address] * TSH (01/27/2018 12:47 PM EDT) Pathologist [facility] TSH 1.50 0.27 - 4.20 uIU/mL [facility] Blood 01/27/2018 12:4 7 PM EDT 01/27/2018 12:58 PM EDT Tanya LEES LAB BLOOD BKR ORDERABLES Fi nal Result Performing Organization Address [facility] de Phone Number [address] [address] * CBC and differential (01/27/2018 12:47 PM EDT) WBC 4.16 3.40 - 11.20 K/uL [facility] RBC 4.56 3.80 - 4.80 M/uL [facility] HGB 13.0 12.0 - 15.0 g/dL [facility] HCT 40.3 36.0 - 46.0 % [facility] PLT 228 130 - 400 K/uL [facility] MCV 88.4 79.0 - 98.0 fL [facility] MCH 28.5 27.0 - 34.8 pg [facility] MCHC 32.3 31.5 - 36.0 g/dL [facility] RDW 14.3 10.8 - 14.6 % [facility] MPV 11.3 9.4 - 12.4 fl [facility] NRBC 0.00 /100 WBCs [facility] ABSOLUTE NRBC 0.00 K/uL [facility] DIFF METHOD Auto [facility] NEUTS 66.2 45.30 - 77.70 % [facility] LYMPHS 26.2 12.30 - 39.70 % [facility] MONOS 6.7 4.10 - 12.80 % [facility] EOS 0.5 0 - 7.2 % [facility] BASOS 0.2 0 - 2.80 % [facility] Granulocytes, immature (%) 0.2 0.0 - 0.9 % [facility] ABSOLUTE NEUTS 2.75 1.40 - 7.70 K/uL [facility] ABSOLUTE LYMPHS 1.09 0.60 - 3.20 K/uL [facility] ABSOLUTE MONOS 0.28 0.11 - 0.59 K/uL [facility] ABSOLUTE EOS 0.02 0.01 - 0.50 K/uL [facility] ABSOLUTE BASOS 0.01 0.00 - 0.08 K/uL [facility] Granulocytes, immature 0.01 0.00 - 0.05 K/uL [facility] Blood 01/27/2018 12:4 7 PM EDT 01/27/2018 12:58 PM EDT us Tanya LEES LAB BLOOD BKR ORDERABLES Fi nal Result [facility] [address] [place] [address] * Tissue transglutaminase IgA (01/27/2018 12:47 PM EDT) TTG IGA ANTIBODY <1.2 <4.0 (Negative) U/mL [facility] DPT OF LAB MED AND PAT+ Blood 01/27/2018 12:4 7 PM EDT 01/27/2018 12:58 PM EDT us Tanya LEES LAB BLOOD BKR ORDERABLES Fi nal Result [facility] DPT OF LAB MED AND PAT+ [address] [place] [address] documented in this encounter Visit Diagnoses Diagnosis Abdominal pain, unspecified abdominal location- Primary Gastroesophageal reflux disease, esophagitis presence not specified Weight loss Loss of weight documented in this encounter Care Teams System Administration Manager Relationship Specialty Start Date End Date Arminda Hector MD [address] [place] [address] [email or web address] PCP - General Internal Medicine 08/09/16 Arminda Hector MD [address] [place] [address] Insurance Assigned Provider 02/07/19 03/13/19 Jomar Renteria MD, MPH [address] [place] [address] 9 [place] [address] [email or web address] Gastroenterology 11/20/21 documented as of this encounter Additional Source Comments The information contained in this document represents components of the legal health record. It is not the complete legal health record.[facility]
--- OUTSIDE RECORDS SUMMARY | 2025-07-13 14:12 | XMS_ITS | Encounter Summary ---
Author Organization [facility] Address [address] [place] [address] Phone Care Team Providers Care Machinist Set Up Name Role Phone Arminda Hector MD Primary Care Provider [phone] Jomar Renteria MD, MPH Unavailable [phone] Encounter Details Date Type Department Care Team (Late Contact Info) Description 08/17/2019 Procedure Pass [facility] [address] [facility] [place] [address] Social History Tobacco Use Types Packs/Day Years [...] PM EST Office Visit [facility] [address] [place] [address] Nasir Post MD [address] [place] [address] [place] [email or web address] 01/23/2026 11:30 AM EDT Office Visit [facility] Neurology at [place] [address] [facility] 4[address] [place] [address] Galileo Lyons MD, PhD [address] [facility] Department [place] [address] [email or web address] documented as of this encounter Visit Diagnoses Not on filedocumented in this encounter Care Teams Machinist Set Up Relationship Specialty Start Date End Date Arminda Hector MD [address] [place] [address] [email or web address] PCP - General Internal Medicine 08/09/16 Jomar Renteria MD, MPH [address] [place] [address] 9 [place] [address] [email or web address] [email or web address] 11/20/21 documented as of this encounter Additional Source Comments The information contained in this document represents components of the legal health record. It is not the complete legal health record.[facility]
--- OUTSIDE RECORDS SUMMARY | 2025-07-13 14:12 | XMS_ITS | Encounter Summary ---
Author Organization [facility] Address [address] [place] [address] Phone Care Team Providers Care Hydrographer Name Role Phone Arminda Hector MD Primary Care Provider [phone] Arminda Hector MD Unavailable [phone] Jomar Renteria MD, MPH Unavailable [phone] Reason for Referral * Outpatient Procedure - Closed Specialty Diagnoses / Procedures Referred By Basilio palmer Referred To Contact Radiology Diagnoses Non-intractable vomiting without nausea, unspecified vomiting type Abdominal discomfort Weight loss Procedures NM Gastric Emptying Diaz Horner MD Phone: tel: fax: [email or web address] Referral ID Status Reason Start Date Expiration Date Visits Re quested Visits Authorized [id number] Closed 12/23/2017 12/23/2018 1 1 Encounter Details Date Type Department Care Team (Late st Contact Info) Description 12/23/2017 Ancillary Orders [facility] Department [address] [place] [address] [phone] Diaz Horner MD [address] [place] [address] [email or web address] Non-intractable vomiting without nausea, unspecified vomiting type; Abdominal discomfort; Weight loss Social History Tobacco Use Types [...] Description 07/28/2025 1:30 PM EST Office Visit [facility] [address] [facility] 9th [place] [address] Nasir Post MD [address] [place] [address] [email or web address] 01/23/2026 11:30 AM EDT Office Visit [facility] [place] [address] [place] [address] Galileo Lyons MD, PhD [address] [place] [address] [place] [address] [email or web address] documented as of this encounter Results * NM GASTRIC EMPTYING SOLID PHASE (01/08/2018 1:41 PM EDT) Anatomical Region Laterality Modality Abdomen, Pelvis Nuclear Medicine 01/08/2018 1:44 PM EDT Impressions 01/08/2018 1:45 PM EDT Prolonged gastric emptying at the 2 hour time point consistent with mild gastroparesis. S/S: Abdominal discomfort/pain, vomiting, mild gastroparesis POS - [id number] Narrative 01/08/2018 1:45 PM EDT The patient is given an oral meal of 1.0 mCi of Tc99m labeled sulfur colloid with egg whites, toast, jam and water. Evaluation of gastric emptying over four hours is obtained. At one hour there is 84.2% residual activity in the stomach which is within the normal range. At two hours there is 72.4% residual activity in the stomach which is above the normal range. At four hours there is 2.7% residual activity in the stomach which is within the normal range. No obvious gastroesophageal reflux is seen. NORMAL RANGE One hour 37-90% Two hours 30-60% Four hours 0-10% Procedure Note Cory Hidalgo MD - 01/08/2018 The patient is given an oral meal of 1.0 mCi of Tc99m labeled sulfurcolloid with egg whites, toast, jam and water. Evaluation of gastricemptying over four hours is obtained. At one hour there is 84.2% residual activity in the stomach which iswithin the normal range. At two hours there is 72.4% residual activity in the stomach which isabove the normal range. At four hours there is 2.7% residual activity in the stomach which iswithin the normal range. No obvious gastroesophageal reflux is seen. NORMAL RANGE One hour 37-90% Two hours 30-60% Four hours 0-10% IMPRESSION: Prolonged gastric emptying at the 2 hour time point consistent with mildgastroparesis. S/S: Abdominal discomfort/pain, vomiting, mild gastroparesis POS - [id number] us Diaz Horner MD IMG NM ABDOMEN Final Result * FL BARIUM SWALLOW ESOPHAGRAM SINGLE CONTRAST (01/05/2018 9:06 AM EDT) Anatomical Region Laterality Modality Chest Radiographic Claudia ging 01/05/2018 9:12 AM EDT Impressions 01/05/2018 9:16 AM EDT Normal barium swallow. No evidence of impaired esophageal motility nor structural abnormalities. FLUOROSCOPY TIME: 1:17 MIN 43 IMAGES/FRAMES POS - [id number] Narrative 01/05/2018 9:16 AM EDT The city councilman film of the neck shows well-aligned vertebral bodies and maintained disc heights. No paraspinous soft tissue swelling, soft tissue calcifications or foreign bodies. A biphasic barium swallow including cine radiography of the oropharynx in 2 projections, 13 mm tablet and barium paste on bread was performed. FINDINGS: Oral pharyngeal and esophageal motility seems normal. No penetration, aspiration, cricopharyngeal achalasia or nasopharyngeal reflux. Esophageal motility also appears to be normal and both upright and prone. No spasm or significant tertiary contractions. 13 mm tablet and barium paste on bread passed easily all the way to the stomach. No esophageal erosive changes, stricturing or masses are apparent. Reflux could not be elicited with provocative maneuvers. Procedure Note Cristian Courtney MD - 01/05/2018 The city councilman film of the neck shows well-aligned vertebral bodies andmaintained disc heights. No paraspinous soft tissue swelling, soft tissue calcifications or foreignbodies. A biphasic barium swallow including cine radiography of the oropharynx in2 projections, 13 mm tablet and barium paste on bread was performed. FINDINGS: Oral pharyngeal and esophageal motility seems normal. No penetration,aspiration, cricopharyngeal achalasia or nasopharyngeal reflux. Esophageal motility also appears to be normal and both upright and prone.No spasm or significant tertiary contractions. 13 mm tablet and barium paste on bread passed easily all the way to thestomach. No esophageal erosive changes, stricturing or masses are apparent. Reflux could not be elicited with provocative maneuvers. IMPRESSION: Normal barium swallow. No evidence of impaired esophageal motility norstructural abnormalities. FLUOROSCOPY TIME: 1:17 MIN 43 IMAGES/FRAMES POS - [id number] Diaz Horner MD [facility] Final Result documented in this encounter Visit Diagnoses Diagnosis Non-intractable vomiting without nausea, unspecified vomiting type Abdominal discomfort Abdominal pain, unspecified site Weight loss Loss of weight Non-intractable vomiting without nausea, unspecified vomiting type Abdominal discomfort Abdominal pain, unspecified site Weight loss Loss of weight Non-intractable vomiting without nausea, unspecified vomiting type Abdominal discomfort Abdominal pain, unspecified site Weight loss Loss of weight documented in this encounter Care Teams Hydrographer Relationship Specialty Start Date End Date Arminda Hector MD [address] [place] [address] [email or web address] PCP - General Internal Medicine 08/09/16 Arminda Hector MD [address] [place] [address] [email or web address] Insurance Assigned Provider 02/07/19 03/13/19 Jomar Renteria MD, MPH [address] [place] [address] [email or web address] Gastroenterology 11/20/21 documented as of this encounter Additional Source Comments The information contained in this document represents components of the legal health record. It is not the complete legal health record.[facility]
--- OUTSIDE RECORDS SUMMARY | 2025-07-13 14:12 | XMS_ITS | Encounter Summary ---
Author Organization [facility] Address [address] [place] [address] Phone Care Team Providers Care Cloth Shrinking Tester Name Role Phone Arminda Hector MD Primary Care Provider [phone] Jomar Renteria MD, MPH Unavailable [phone] Encounter Details Date Type Department Care Team (Late Contact Info) Description 07/18/2020 Procedure Pass [facility]PT [address] [address] Social History Tobacco Use Types Packs/Day Years [...] PM EST Office Visit [facility] [address] [address] Nasir Post MD [address] [place] [address] [email or web address] 01/23/2026 11:30 AM EDT Office Visit [facility] Neu[facility] [place] [address] [address] Galileo [place], [place] [address] [place] [address] [place] [address] [email or web address] documented as of this encounter Visit Diagnoses Not on filedocumented in this encounter Care Teams Cloth Shrinking Tester Relationship Specialty Start Date End Date Arminda Hector MD [address] [place] [address] [email or web address] PCP - General Internal Medicine 08/09/16 Jomar Renteria MD, MPH [address] [place] [address] 9 [place] [address] [email or web address] Gastroenterology 11/20/21 documented as of this encounter Additional Source Comments The information contained in this document represents components of the legal health record. It is not the complete legal health record.[facility]
--- OUTSIDE RECORDS SUMMARY | 2025-07-13 14:12 | XMS_ITS | Encounter Summary ---
Author Organization [facility] Address [address] [place] [address] Phone Care Team Providers Care Superintendent Of Schools Name Role Phone Arminda Hector MD Primary Care Provider [phone] Arminda Hector MD Unavailable [phone] Jomar Renteria MD, MPH Unavailable [phone] Encounter Details Date Type Department Care Team (Late Contact Info) Description 12/10/2017 Procedure Pass [facility] Endoscopy Admitting Dept Virtual Department [address] [place] [address] Social History Tobacco Use Types Packs/Day Years [...] PM EST Office Visit [facility] [address] 9th [place] [address] Nasir Post MD [address] [place] [address] [email or web address] 01/23/2026 11:30 AM EDT Office Visit [facility] Neurology at [place] [address] [place] [address] Galileo Lyons MD, PhD 115[address] [facility] [place] [address] [email or web address] documented as of this encounter Visit Diagnoses Not on filedocumented in this encounter Care Teams Superintendent Of Schools Relationship Specialty Start Date End Date Arminda Hector MD [address] [place] [address] [email or web address] PCP - General Internal Medicine 08/09/16 Arminda Hector MD [address] [place] [address] [email or web address] Insurance Assigned Provider 02/07/19 03/13/19 Jomar Renteria MD, MPH [address] [facility] 9 [place] [address] [email or web address] Gastroenterology 11/20/21 documented as of this encounter Additional Source Comments The information contained in this document represents components of the legal health record. It is not the complete legal health record.[facility]
--- OUTSIDE RECORDS SUMMARY | 2025-07-13 14:12 | XMS_ITS | Encounter Summary ---
Author Organization [facility] Address [address] [place] [address] Phone Care Team Providers Care Electronic Publisher Name Role Phone Arminda Hector MD Primary Care Provider [phone] Jomar Renteria MD, MPH Unavailable [phone] Encounter Details Date Type Department Care Team (Late st Contact Info) Description 04/19/2025 Procedure Pass [facility] [place] [facility] [address] [place] [address] Social History Tobacco Use Types Packs/Day Years [...] 1:30 PM EST Office Visit [facility] [address] 9th [place] [address] Nasir Post MD [address] [place] [address] [email or web address] 01/23/2026 11:30 AM EDT Office Visit [facility] Neurology at [address] [address] Galileo Lyons MD, PhD 115[address] [facility] [place] [address] [email or web address] documented as of this encounter Visit Diagnoses Not on filedocumented in this encounter Care Teams Electronic Publisher Relationship Specialty Start Date End Date Arminda Hector MD [address] [place] [address] [email or web address] PCP - General Internal Medicine 08/09/16 Jomar Renteria MD, MPH [address] [place] [address] 9 [place] [address] [email or web address] Gastroenterology 11/20/21 documented as of this encounter Additional Source Comments The information contained in this document represents components of the legal health record. It is not the complete legal health record.[facility]
--- OUTSIDE RECORDS SUMMARY | 2025-07-13 14:12 | XMS_ITS | Encounter Summary ---
Author Organization [facility] Address [address] [place] [address] Phone Care Team Providers Care Recovery Coordinator Name Role Phone Arminda Hector MD Primary Care Provider [phone] Arminda Hector MD Unavailable [phone] Jomar Renteria MD, MPH Unavailable [phone] Encounter Details Date Type Department Care Team (Latest Contact Info) Description 12/16/2018 Transcribe Orders [facility]leb [facility] [address] [facility] 2nd [place] [address] Tanya Jimenes, PA 10 [place] [address] Abdominal pain, generalized (Primary Dx); Nausea; Loss of weight Social History Tobacco Use Types Packs/Day Years [...] Description 07/28/2025 1:30 PM EST Office Visit [facility] [place] [address] [facility] 9th [place] [address] Nasir Post MD [address] [place] [address] [email or web address] 01/23/2026 11:30 AM EDT Office Visit [facility] Neurology at [place] [address] [facility] [address] [place] [address] Galileo Lyons MD, PhD 1153 [facility] [place] [address] [email or web address] documented as of this encounter Results * 25-OH vitamin D (12/16/2018 11:50 AM EDT) 25 [place] VIT D (TOTAL) 57 30 - 60 ng/mL [facility] Blood 12/16/2018 11:5 0 AM EDT 12/16/2018 11:56 AM EDT Tanya LEES LAB BLOOD BKR ORDERABLES Fi nal Result [facility] [address] [place] [address] * Zinc (12/16/2018 11:50 AM EDT) ZINC 0.80 0.66 - 1.10 mcg/mL [facility] MED/PATH [address] Comment: (NOTE) ADDITIONAL INFORMATION This test was developed and its performance characteristics determined by [facility] in a manner consistent with CLIA requirements. This test has not been cleared or approved by the U.S. Food and Drug Administration. Blood 12/16/2018 11:5 0 AM EDT 12/16/2018 11:56 AM EDT us Tanya LEES LAB BLOOD ORDERABLES Final Result [facility] [address] [place] [address] * Vitamin B12 (12/16/2018 11:50 AM EDT) VITAMIN B12 371 232 - 1,245 pg/mL [facility] Blood 12/16/2018 11:5 0 AM EDT 12/16/2018 11:56 AM EDT us Tanya LEES LAB BLOOD BKR ORDERABLES Fi nal Result Performing Organization Address [facility] Co de Phone Number [address] [address] * Magnesium (12/16/2018 11:50 AM EDT) MAGNESIUM 2.1 1.6 - 2.6 mg/dL [facility] Blood 12/16/2018 11:5 0 AM EDT 12/16/2018 11:56 AM EDT us Tanya LEES LAB BLOOD BKR ORDERABLES Fi nal Result Performing Organization Address [facility] Co de Phone Number [address] [address] * (ABNORMAL) Folate (12/16/2018 11:50 AM EDT) FOLIC ACID >20.0(H) 4.2 - 19.9 ng/mL [facility] Blood 12/16/2018 11:5 0 AM EDT 12/16/2018 11:56 AM EDT us Tanya LEES LAB BLOOD BKR ORDERABLES Fi nal Result Performing Organization Address [facility] Co de Phone Number [address] [address] * (ABNORMAL) Ferritin (12/16/2018 11:50 AM EDT) FERRITIN 11(L) 13 - 150 ug/L [facility] Blood 12/16/2018 11:5 0 AM EDT 12/16/2018 11:56 AM EDT us Tanya LEES LAB BLOOD BKR ORDERABLES Fi nal Result [facility] [address] [place] [address] * (ABNORMAL) Comprehensive metabolic panel (12/16/2018 11:50 AM EDT) Pathologist [facility] SODIUM 138 133 - 146 mmol/L [facility] POTASSIUM 4.1 3.3 - 5.1 mmol/L [facility] CHLORIDE 98 96 - 108 mmol/L [facility] CO2 26 21 - 35 mmol/L [facility] BUN 11 6 - 19 mg/dL [facility] CREATININE 0.80 0.5 - 1.5 mg/dL [facility] GLUCOSE 72 70 - 99 mg/dL [facility] ALBUMIN 5.1(H) 3.9 - 4.8 g/dL [facility] TOTAL PROTEIN 8.2(H) 6.5 - 8.0 g/dL [facility] CALCIUM 10.2 8.4 - 10.3 mg/dL [facility] ALKALINE PHOSPHATASE 51 39 - 117 U/L [facility] TOTAL BILIRUBIN 0.4 0.0 - 1.2 mg/dL [facility] Comment: Results from certain multiple myeloma patients may show a positive bias in recovery. Not all multiple myeloma patients show the bias and severity of the bias may vary between patients. In very rare cases, gammopathy, in particular type IgM (Waldenstrom's macroglobulinemia), may cause unreliable results. AST 28 0 - 37 U/L [facility] ALT 13 0 - 40 U/L [facility] GLOBULIN 3.1 1 - 4.8 g/dL [facility] EGFR 105 >59 mL/min/1.7 3m2 [facility] Comment:If patient is black, multiply result by 1.159. Estimated glomerular filtration rate calculated using the CKD-EPI equation. ANION GAP 18 10 - 20 mmol/L [facility] Blood 12/16/2018 11:5 0 AM EDT 12/16/2018 11:56 AM EDT us Tanya LEES LAB BLOOD BKR ORDERABLES Fi nal Result Performing Organization Address City/[facility] Co de Phone Number [address] [address] * (ABNORMAL) CBC (12/16/2018 11:50 AM EDT) WBC 4.03 3.40 - 11.20 K/uL [facility] RBC 5.11(H) 3.80 - 4.80 M/uL [facility] HGB 13.8 12.0 - 15.0 g/dL [facility] HCT 44.1 36.0 - 46.0 % [facility] PLT 257 130 - 400 K/uL [facility] MCV 86.3 79.0 - 98.0 fL [facility] MCH 27.0 27.0 - 34.8 pg [facility] MCHC 31.3(L) 31.5 - 36.0 g/dL [facility] RDW 15.7(H) 10.8 - 14.6 % [facility] MPV 11.9 9.4 - 12.4 fl [facility] NRBC 0.00 0.00 /100 WBCs [facility] ABSOLUTE NRBC 0.00 0.00 K/uL [facility] Blood 12/16/2018 11:5 0 AM EDT 12/16/2018 11:56 AM EDT us Tanya LEES LAB BLOOD BKR ORDERABLES Fi nal Result Performing Organization Address [facility] Co de Phone Number [address] [address] documented in this encounter Visit Diagnoses Diagnosis Abdominal pain, generalized- Primary Nausea Nausea alone Loss of weight documented in this encounter Care Teams Recovery Coordinator Relationship Specialty Start Date End Date Arminda Hector MD [address] [place] [address] [email or web address] PCP - General Internal Medicine 08/09/16 Arminda Hector MD [address] [place] [address] [email or web address] Insurance Assigned Provider 02/07/19 03/13/19 Jomar Renteria MD, MPH [address] [place] [address] 9 [place] [address] [email or web address] Gastroenterology 11/20/21 documented as of this encounter Additional Source Comments The information contained in this document represents components of the legal health record. It is not the complete legal health record.[facility]
--- OUTSIDE RECORDS SUMMARY | 2025-07-13 14:12 | XMS_ITS | Encounter Summary ---
Author Organization [facility] Address [address] [place] [address] Phone Care Team Providers Care Newspaper Manager Name Role Phone Arminda Hector MD Primary Care Provider [phone] Jomar Renteria MD, MPH Unavailable [phone] Encounter Details Date Type Department Care Team (Late Contact Info) Description 07/20/2020 Procedure Pass [facility] [place] [place] [facility] [place]O DEPT [address] [facility], [address]th [place] [address] Social History Tobacco Use Types Packs/Day Years [...] PM EST Office Visit [facility] [address] [place] [address] Nasir Post MD [address] [place] [address] Rose [email or web address] 01/23/2026 11:30 AM EDT Office Visit [facility] Neurology at [place] [address] [facility] 4i [place] [address] Galileo Lyons MD, PhD 115[address] [facility] [place] [address] [email or web address] documented as of this encounter Visit Diagnoses Not on filedocumented in this encounter Care Teams Newspaper Manager Relationship Specialty Start Date End Date Arminda Hector MD [address] [place] [address] [email or web address] PCP - General Internal Medicine 08/09/16 Jomar Renteria MD, MPH [address] [place] [address] 9 [place] [address] [email or web address] Gastroenterology 11/20/21 documented as of this encounter Additional Source Comments The information contained in this document represents components of the legal health record. It is not the complete legal health record.[facility]
--- OUTSIDE RECORDS SUMMARY | 2025-07-13 14:12 | XMS_ITS | Encounter Summary ---
Author Organization [facility] Address [address] [facility] [address] [place] [address] Phone Care Team Providers Care Youth Liaison Officer Name Role Phone Arminda Hector MD Primary Care Provider Jomar Renteria MD, MPH Unavailable [phone] Reason for Visit * Reason Comments Med Change Request Encounter Details Date Type Department Care Team (Late st Contact Info) Description 05/16/[address] [address] Alcira Delcid MD [address] [place] [address] [email or web address] Med Change Request Social History Tobacco Use Types Packs/Day Years [...] housing situation today? I have kamaljit more 04/18/2025 How many times have you move [...] PM EST Office Visit [facility] [address] 9th [place] [address] Nasir Post MD [address] [place] [address] [email or web address] 01/23/2026 11:30 AM EDT Office [facility] Neurology at [place] [address] [place] [place] [address] Galileo Lyons MD, PhD [address] [place] [address] [place] [address] [email or web address] documented as of this encounter Visit Diagnoses Not on filedocumented in this encounter Care Teams Youth Liaison Officer Relationship Specialty Start Date End Date Arminda Hector MD [address] [place] [address] [email or web address] PCP - General Internal Medicine 08/09/16 Jomar Renteria MD, MPH [address] [place] [address] 9 [place] [address] [email or web address] Gastroenterology 11/20/21 documented as of this encounter Additional Source Comments The information contained in this document represents components of the legal health record. It is not the complete legal health record.[facility]
--- OUTSIDE RECORDS SUMMARY | 2025-07-13 14:12 | XMS_ITS | Encounter Summary ---
Author Organization [facility] Address [address] [place] [id number] Phone Care Team Providers Care Wide Area Network Administrator Name Role Phone Arminda Hector MD Primary Care Provider [phone] Jomar Renteria MD, MPH Unavailable [phone] Encounter Details Date Type Department Care Team (Late Contact Info) Description 08/12/2020 Procedure Pass [facility] [place] [address] [facility] [place] [address] Social History Tobacco Use Types Packs/Day Years [...] PM EST Office Visit [facility] [address] [place] [address] Nasir Post MD [address] [place] [id number] Rose [email or web address] 01/23/2026 11:30 AM EDT Office Visit [facility] [place] [address] [facility] [address] [place] [address] Galileo Lyons MD, PhD [address] [facility] [place] [address] [email or web address] documented as of this encounter Visit Diagnoses Not on filedocumented in this encounter Care Teams Wide Area Network Administrator Relationship Specialty Start Date End Date Arminda Hector MD [address] [place] [phone] [email or web address] PCP - General Internal Medicine 08/09/16 Joamr Renteria MD, MPH [address] [place] [address] 9 [place] [address] [email or web address] 11/20/21 documented as of this encounter Additional Source Comments The information contained in this document represents components of the legal health record. It is not the complete legal health record.[facility]
--- OUTSIDE RECORDS SUMMARY | 2025-07-13 14:12 | XMS_ITS | Encounter Summary ---
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 Name Role Phone Arminda Hector MD Primary Care Provider [phone] Jomar Renteria MD, MPH Unavailable [phone] Encounter Details Date Type Department Care Team (Late st Contact Info) Description 04/18/2025 Procedure Pass [facility] [place] [facility] [address] [place] [address] Social History Tobacco Use Types Packs/Day Years [...] on file documented as of this encounter Last Filed Vital Signs Vital Sign Reading Time Taken Comments Blood Pressure - - Pulse - - Temperature - - Respiratory Rate - - Oxygen Saturation - - Inhaled Oxygen Concentration - - Weight 49.9 kg (110 lb) 04/18/2025 3:09 PM EDT Height 157.5 cm (5' 2 ) 04/18/2025 3:09 PM EDT Body Mass Index 20.12 04/18/2025 3:09 PM EDT documented in this encounter Functional Status * Calculated C-SSRS Risk Score (Lifetime/Recent) Answer Date of Assessment Author Moderate Risk 04/18/2025 6:59 PM EDT Victor Manuel Heaton RN * [place] Suicide Severity Rating Scale (Screener/Recent Self-Report) Question Answer Date of Assessment Author 1. Wish to be (Past 1 Month) No 025 6:59 PM EDT Meme Heaton RN 2. Non-Specific Active Suici jose l Thoughts (Past 1 Month) No 04/18/2025 6:59 PM EDT Meme Heaton RN 6. Suicidal Behavior (Lifetime) Yes 5 6:59 PM EDT Meme Heaton RN 6. Suicidal Behavior (3 Months) No 5 6:59 PM EDT Meme Heaton RN documented as of this encounter Plan of Treatment Upcoming Encounters Date Type Department Care Team (Late st Contact Info) Description 07/28/2025 1:30 PM EST Office Visit [facility] [address] [facility] 9th [place] [address] Nasir Post MD [address] [place] [id number] [email or web address] 01/23/2026 11:30 AM EDT Office Visit [facility] [place] [address] [place] [address] [place] [phone] Galileo Lyons MD, PhD [address] [place] [address] Department [place] [address] [email or web address] documented as of this encounter Visit Diagnoses Not on filedocumented in this encounter Care Teams 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 It is not the complete legal health record.[facility]
[2025-07-13 14:33] VITALS: BP 97/58; PULSE 91; RESP 19; TEMP 36.8; O2SAT 98
== END 2025-07-13 14:45 | disposition home or self-care (01) ==
PROVIDERS: Physician Assistant; Emergency Provider Emergency Medicine; PCP Internal Medicine
DX: R00.0 Tachycardia, unspecified (principal); R07.2 Precordial pain; G90.1 Familial dysautonomia [Riley-Day]; R53.1 Weakness; R94.31 Abnormal electrocardiogram [ECG] [EKG]; Z79.899 Other long term (current) drug therapy
CPT/HCPCS: 36415; 71275; 74174; 80053; 84443; 84484; 84702; 85025; 85610; 85730; 93005; 96361; 96374; 96375; 99284; 99285; J1200; J3360; Q9967

== ENCOUNTER → 2025-07-13 10:06 | Outpatient (BNV) | payer MEDICARE, MEDICAID, SELFPAY | PROVIDERS: Emergency Provider Emergency Medicine; PCP Internal Medicine; Visit Provider Internal Medicine Cardiovascular Disease | DX: R00.0 Tachycardia, unspecified (principal); R53.1 Weakness | CPT/HCPCS: 93010 ==

== ENCOUNTER → 2025-07-13 11:02 | Outpatient (BNV) | payer MEDICARE, MEDICAID, SELFPAY | PROVIDERS: Emergency Provider Emergency Medicine; PCP Internal Medicine; Visit Provider Radiology Diagnostic Radiology | DX: L94.9 Localized connective tissue disorder, unspecified (principal); R07.9 Chest pain, unspecified | CPT/HCPCS: 71275; 74174 ==